=== PATIENT | female | born 1960 | race Caucasian/White ===

== ENCOUNTER 2016-05-08 04:23 | Emergency (ER) | payer MEDICARE, OTHER ==
[~2016-05-08 04:23] MED LIST: BUPR10TASR PO; CALC600T7 PO; CITA20TA4 PO; CYCL10TA PO; ESTR0.5T3 PO; LAMI25TA PO; LAMO5CHW PO; LISI-542 PO; METF1000 PO; PRIL20CA PO; SIMV40TA2 PO; TRAZ100T4 PO; VIST50CA PO; VITA500T53 PO; ZOLM2.5T PO
[2016-05-08] MEDS ORDERED: ASPIRIN 81 MG CHEW TABLET As Ordered ONE ×2 (05:19→06:05)
[2016-05-08] MEDS ORDERED: METOCLOPRAMIDE INJ 10MG/2ML VIAL (J2765) As Ordered ONE ×2 (05:19→06:04)
[2016-05-08 05:33] LABS: BASO % 0.2 % (0.0-1.0); EOS % 0.7 % (0.0-3.0); LARGE UNSTAINED CELL # 0.1 K/mm3 (0.0-0.4); LARGE UNSTAINED CELL % 0.8 % (0.0-4.0); LYMPH # 0.7 K/mm3 (1.5-4.5); MEAN CORPUSCULAR HEMOGLOBIN 30.1 pg (27.0-33.0); MEAN CORPUSCULAR HGB CONC 32.7 g/dl (32.0-36.5); MEAN CORPUSCULAR VOLUME 92.2 fl (80.0-96.0); MONO # 0.2 K/mm3 (0.0-0.8); MONO % 3.1 % (0.0-5.0); NEUTROPHILS # 5.7 K/mm3 (1.8-7.7); NEUTROPHILS % 85.2 % (36.0-66.0); PLATELET COUNT, AUTOMATED 162 k/mm3 (150-450); RED CELL DISTRIBUTION WIDTH 12.8 % (11.5-14.5); WHITE BLOOD COUNT 6.7 K/mm3 (4.0-10.0)
[2016-05-08 05:52] LABS: ALBUMIN 3.9 GM/DL (3.2-5.2); ALBUMIN/GLOBULIN RATIO 0.91 (1.00-1.93); ALKALINE PHOSPHATASE 80 U/L (45-117); ALT/SGPT 38 U/L (12-78); AMYLASE 21 U/L (25-115); ANION GAP 12 MEQ/L (8-16); AST/SGOT 47 U/L (15-37); BILIRUBIN,DIRECT 0.2 MG/DL (0.0-0.2); BILIRUBIN,TOTAL 0.7 MG/DL (0.2-1.0); BLOOD UREA NITROGEN 12 MG/DL (7-18); CALCIUM LEVEL 8.5 MG/DL (8.5-10.1); CARBON DIOXIDE LEVEL 27 MEQ/L (21-32); CHLORIDE LEVEL 98 MEQ/L (98-107); GLOMERULAR FILTRATION RATE > 60.0 (>51); GLUCOSE, FASTING 186 MG/DL (70-105); POTASSIUM SERUM 3.7 MEQ/L (3.5-5.1); SODIUM LEVEL 137 MEQ/L (136-145); TOTAL PROTEIN 8.2 GM/DL (6.4-8.2)
[2016-05-08] MEDS ORDERED: CLOPIDOGREL 75 MG TAB As Ordered ONE (06:05)
[2016-05-08] MEDS ORDERED: HEPARIN 25,000 UNITS/250 ML D5W BAG (100 UNITS/ML) As Ordered ONE (06:05)
[2016-05-08] MEDS ORDERED: METOPROLOL TART 50 MG TAB As Ordered ONE (06:05)
[2016-05-08] MEDS ORDERED: HEPARIN SOD (PORCINE) 5000 UNITS/ML VIAL As Ordered ONE (06:05)
[2016-05-08 06:17] LABS: INR 1.14
[2016-05-08] MEDS ORDERED: MORPHINE 2 MG/ML 1ML SYRINGE As Ordered ONE (07:23)
--- NOTE | 2016-05-08 07:38 | EDDOCDS ---
Physician Documentation [facility] Name: Celestina Ellison Age: 55 yrs Sex: Female : 1960 Arrival Date: 05/08/2016 Time: 04:23 Bed 11 Private MD: Disposition: 05/08/16 06:17 Transfer ordered to [facility]. Diagnosis is Subsequent non-ST elevation (NSTEMI) myocardial infarction. - Reason for transfer: Higher level of care. - Accepting physician is Dr Beard. - Condition is Stable. - Problem is new. - Symptoms have improved. Historical: - Allergies: Latex; Bees; - Home Meds: 1. liraglutide 0.6 mg/0.1 mL (18 mg/3 mL) subcutaneous pnij 1.2 mL once daily began medication yesterday 2. cyclobenzaprine 10 mg oral tab 1 tab 3 times per day 3. lisinopril 5 mg Oral tab 1 tab once daily 4. metformin 1,000 mg Oral tab 1 tab 2 times per day 5. Prozac 40 mg Oral cap 1 cap once daily 6. simvastatin 40 mg Oral tab 1 tab once daily 7. trazodone 350 mg Oral tab 1 tab nightly 8. 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 No barriers to communication noted, The patient speaks fluent Persian, Speaks appropriately for age. - Family history: Not pertinent. - : The pt / caregiver states he / she is not on anticoagulants. Home medication list is obtained from the patient. - Exposure Risk Screening:: None identified. 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 11 in. (149.86 cm); Pain 7/10; 04:43 BP 142 / 85 (auto/); cf2 04:43 Pulse 108 MON; Pulse Ox 93% ; cf2 04:50 Pulse 108 MON; Pulse Ox 95% ; cf2 05:00 Pulse 106 MON; Pulse Ox 95% ; cf2 05:13 Pulse 104 MON; Pulse Ox 93% ; cf2 05:24 Pulse 104 MON; Pulse Ox 93% ; cf2 05:45 Pulse 104 MON; Pulse Ox 92% ; cf2 06:04 Pulse 104 MON; Pulse Ox 90% ; cf2 06:19 BP 140 / 77 (auto/); cf2 06:20 Pulse 106 MON; Pulse Ox 92% ; cf2 06:34 BP 141 / 81 (auto/); cf2 06:35 Pulse 106 MON; cf2 06:49 BP 132 / 75 (auto/); cf2 06:51 Pulse 104 MON; cf2 06:53 Pulse 104 MON; Pulse Ox 95% ; cf2 07:04 BP 136 / 83 (auto/); cf2 07:05 Pulse 104 MON; Pulse Ox 94% ; cf2 07:19 BP 151 / 79 (auto/); jjr 07:20 Pulse 112 MON; Resp 20; Temp 98.4(O); Pulse Ox 94% on R/A; Pain 5/10; jjr 07:37 BP 123 / 74; Pulse 105; Resp 20; Pain 0/10; jjr 04:34 Body Mass Index 68.07 (152.86 kg, 149.86 cm) nn1 MDM: 04:40 ECG WITH READING ER PHYS+CARDIAG ordered. EDMS 05:05 IV Saline Lock ordered. cs11 05:05 NS 0.9% 500 ml IV at bolus once ordered. cs11 05:05 Metoclopramide 10 mg IV at 40 mg/hr once over 15 mins ordered. cs11 05:06 Aspirin 324 mg PO once ordered. cs11 05:07 Chest, 1 View Ordered. EDMS 05:07 CBC with Diff Ordered. EDMS 05:07 MED Profile Ordered. EDMS 05:07 Liver Profile Ordered. EDMS 05:07 Amylase Ordered. EDMS 05:07 Lipase Ordered. EDMS 05:07 Cardiac Marker Panel Ordered. EDMS 05:18 Fingerstick Blood Sugar Ordered. EDMS 05:38 CBC with Diff Reviewed. cs11 05:38 Fingerstick Blood Sugar Reviewed. cs11 05:59 MED Profile Reviewed. cs11 05:59 Liver Profile Reviewed. cs11 05:59 Amylase Reviewed. cs11 05:59 Cardiac Marker Panel Reviewed. cs11 05:59 Lipase Reviewed. cs11 06:01 heparin (Thrombolytic Protocol, 60 units/kg)) 4000 units IVP once; max 4000 units. cs11 Ensure no Lovenox in past 18hr, labs drawn ordered. 06:01 heparin (Thrombolytic Protocol, 12 units/kg/hr)) 66067 units IV at 1000 units/hr once; cs11 Max. dose 1000units/hr. No Lovenox past 18hrs/ draw labs. ordered. 06:01 Plavix - Clopidogrel 75 mg PO once ordered. cs11 06:02 Metoprolol (Tartrate) 50 mg PO once ordered. cs11 06:05 Pt & Aptt: prior to heparinization Ordered. EDMS 06:34 Financial registration complete. hs2 07:20 [facility] Payment Agreement was scanned into [employer] and attached to record. hs2 07:24 morphine 2 mg IVP once ordered. fg Administered Medications: 05:26 Drug: NS 0.9% 500 ml [sodium chloride 0.9 % intravenous solution] Route: IV; Rate: cf2 bolus; Site: left antecubital; 05:26 Drug: Metoclopramide 10 mg [metoclopramide 5 mg/mL injection solution] Route: IV; Rate: cf2 40 mg/hr; Infused Over: 15 mins; Site: left antecubital; 05:26 Drug: Aspirin 324 mg [aspirin 81 mg chewable tablet (4 tabs)] Route: PO; cf2 06:14 Drug: Plavix - Clopidogrel 75 mg [clopidogrel 75 mg tablet (1 tabs)] Route: PO; jp6 06:14 Drug: Metoprolol 50 mg [metoprolol tartrate 50 mg tablet (1 tabs)] Route: PO; jp6 06:15 Drug: heparin (Thrombolytic Protocol, 12 units/kg/hr)) 70194 units [heparin (porcine) jp6 25,000 unit/250 mL (100 unit/mL) in dextrose 5 % IV] {Co-Signature: cf2 (Karen Amaral RN).} Route: IV; Rate: 1000 units/hr; Site: left antecubital; 06:16 Drug: heparin (Thrombolytic Protocol, 60 units/kg)) 4000 units [heparin (porcine) 5,000 jp6 unit/mL injection solution (0.8 mL)] {Co-Signature: cf2 (Karen Amaral RN).} Route: IVP; Site: left antecubital; 07:27 Drug: morphine 2 mg [morphine 2 mg/mL intravenous cartridge (1 mL)] Route: IVP; Site: jjr left wrist; Signatures: Dispatcher [employer] EDVenice Brownlee RN RN jjr Jeb Ann DO DO cs11 Deejay BlanchardRN RN nn1 Benita Eric MD MD Nanette Harvey, Reg Reg hs2 Karen Amaral RN RN cf2 Venice Yang RN jp6 Karen Amaral RN cf2 The chart was reviewed and I authenticate all verbal orders and agree with the evaluation and treatment provided.Attachments: 07:20 [facility] Payment Agreement hs2 MTDD
--- NOTE | 2016-05-08 07:38 | EDDOCDS ---
Nurse's Notes [facility] Name: Celestina Ellison Age: 55 yrs Sex: Female : 1960 Arrival Date: 05/08/2016 Time: 04:23 Bed 11 Private MD: Diagnosis: Subsequent non-ST elevation (NSTEMI) myocardial infarction Presentation: 05/08 04:28 Presenting complaint: Patient states: vomiting since 1900 yesterday. Diarrhea began at nn1 approximately an hour ago. Patient reports chest pains, substernal, began before vomiting. Describes chest pain as sharp, radiates across chest. Suicide/Homicide risk assessment- the patient denies having any suicidal and/or homicidal ideations and does not present with any other emotional, behavioral or mental health complaints. Status: Patient is not a account services specialist or dependent. Transition of care: patient was not received from another setting of care. 04:28 Acuity: STACIA Level 3 nn1 04:28 Method Of Arrival: Walkin/Carried/Asstd nn1 07:30 Adult Sepsis Screening: The patient does not have new or worsening altered mentation. jjr Patient's respiratory rate is less than 22. Systolic blood pressure is greater than 100. Patient has a qSOFA score of 0- Negative Sepsis Screen. Triage Assessment: 04:35 General: Appears uncomfortable. Pain: Location: chest Pain currently is 7 out of 10 on nn1 a pain scale. Quality of pain is described as sharp, Pain began 0 yesterday Is continuous. HIV screening NA for this visit Offered previously. The patient is triaged at the bedside. See Assessment in Nurses Notes section of ED record. Neurological: Level of Consciousness is awake, alert, obeys commands. Respiratory: Airway is patent Respiratory effort is even, unlabored, Respiratory pattern is regular, symmetrical. GI: Reports diarrhea, nausea, vomiting. Derm: Skin is pink, warm & dry. 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 liraglutide 0.6 mg/0.1 mL (18 mg/3 mL) subcutaneous pnij 1.2 mL once daily began medication yesterday 2. cyclobenzaprine 10 mg oral tab 1 tab 3 times per day 3. lisinopril 5 mg Oral tab 1 tab once daily 4. metformin 1,000 mg Oral tab 1 tab 2 times per day 5. Prozac 40 mg Oral cap 1 cap once daily 6. simvastatin 40 mg Oral tab 1 tab once daily 7. trazodone 350 mg Oral tab 1 tab nightly 8. 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 No barriers to communication noted, The patient speaks fluent Ukrainian, Speaks appropriately for age. - Family history: Not pertinent. - : The pt / caregiver states he / she is not on anticoagulants. Home medication list is obtained from the patient. - Exposure Risk Screening:: None identified. Screenin:59 Screening information is obtained from the patient. Fall risk: No risks identified. kas2 Assistance ADL's: requires no assistance with activities of daily living. Abuse/DV Screen: The patient / caregiver reports he/she is: not in a situation that causes fear, pain or injury. Nutritional screening: No deficits noted. Advance Directives: Currently, there is no health care proxy. There is no active DNR order. There is no living will. There is no Power of Instructor Decorating. home support is adequate. Assessment: 04:58 General: Appears in no apparent distress, uncomfortable, well nourished, well groomed, kas2 Behavior is appropriate for age, cooperative. Pain: Location: chest Pain currently is 6 out of 10 on a pain scale. Pain does not radiate. Neurological: Level of Consciousness is awake, alert, Oriented to person, place, time. Cardiovascular: Capillary refill < 3 seconds Heart tones present Rhythm is sinus tachycardia No ectopy. Respiratory: Airway is patent Respiratory effort is even, unlabored, Respiratory pattern is regular, symmetrical, Breath sounds are clear bilaterally. GI: Abdomen is obese, Bowel sounds present X 4 quads. Abd is soft and non tender X 4 quads. Derm: Skin is intact, is healthy with good turgor, Skin is dry, Skin is pink, warm & dry. normal, Skin temperature is warm. 07:15 General: Report to WANG Abdullahi, at [facility]. cf2 07:15 Reassessment: Patient states symptoms have improved. General: MD over to speak with cf2 patient. Trop elevated at 0.38 and explains to patient that she needs to be transferred to another facility for higher level of care. Patient agrees to transfer . 07:28 General: Appears in no apparent distress, obese, Behavior is appropriate for age, jjr reported 2 /10 substernal chest pressure after getting up to BSC pt reported slightly more SOB than baseline and chest pressure increased to 5/10, morphine administered per order. Neurological: No deficits noted. Cardiovascular: Rhythm is sinus tachycardia. Respiratory: Airway is patent Respiratory effort is even, unlabored, Respiratory pattern is regular. Derm: Skin is pink, warm & dry. Vital Signs: 04:34 BP 150 / 87; Pulse 110; Resp 18; Temp 96.7(T); Pulse Ox 95% on R/A; Weight 152.86 kg; nn1 Height 4 ft. 11 in. (149.86 cm); Pain 7/10; 04:43 BP 142 / 85 (auto/); cf2 04:43 Pulse 108 MON; Pulse Ox 93% ; cf2 04:50 Pulse 108 MON; Pulse Ox 95% ; cf2 05:00 Pulse 106 MON; Pulse Ox 95% ; cf2 05:13 Pulse 104 MON; Pulse Ox 93% ; cf2 05:24 Pulse 104 MON; Pulse Ox 93% ; cf2 05:45 Pulse 104 MON; Pulse Ox 92% ; cf2 06:04 Pulse 104 MON; Pulse Ox 90% ; cf2 06:19 BP 140 / 77 (auto/); cf2 06:20 Pulse 106 MON; Pulse Ox 92% ; cf2 06:34 BP 141 / 81 (auto/); cf2 06:35 Pulse 106 MON; cf2 06:49 BP 132 / 75 (auto/); cf2 06:51 Pulse 104 MON; cf2 06:53 Pulse 104 MON; Pulse Ox 95% ; cf2 07:04 BP 136 / 83 (auto/); cf2 07:05 Pulse 104 MON; Pulse Ox 94% ; cf2 07:19 BP 151 / 79 (auto/); jjr 07:20 Pulse 112 MON; Resp 20; Temp 98.4(O); Pulse Ox 94% on R/A; Pain 5/10; jjr 07:37 BP 123 / 74; Pulse 105; Resp 20; Pain 0/10; jjr 04:34 Body Mass Index 68.07 (152.86 kg, 149.86 cm) nn1 Vitals: 04:34 Log In Time: May 08, 2016 at 04:25. nn1 ED Course: 04:24 Patient visited by Nanette Harvey Reg. hs2 04:24 Patient moved to Waiting hs2 04:29 Triage Initiated nn1 04:36 Patient moved to 11 nn1 04:41 Jeb Ann DO is Attending Physician. cs11 04:41 Patient visited by Jeb Ann DO. cs11 04:49 Patient visited by Joan Cabrera Cooking Instructor. jlm 04:49 EKG done. (by ED staff). Reviewed by Jeb Ann DO. jl 04:57 Inserted saline lock: 20 gauge in left antecubital area The patient tolerated the kas2 procedure well. 05:00 Karen Amaral,WANG is Primary Nurse. cf2 05:00 Patient visited by Karen Amaral,WANG. cf2 05:18 Lipase Sent. cf2 05:18 Amylase Sent. cf2 05:18 CBC with Diff Sent. cf2 05:18 MED Profile Sent. cf2 05:18 Liver Profile Sent. cf2 05:18 Cardiac Marker Panel Sent. cf2 06:00 Patient visited by Karen Amaral,WANG. cf2 06:49 Patient visited by Karen Amaral,WANG. cf2 07:09 Patient visited by Karen Amaral,WANG. cf2 07:18 The patient / caregiver is instructed regarding the plan of care and ED course. Patient cf2 has correct armband on for positive identification. Placed in gown. Bed in low position. Call light in reach. Side rails up X 1. Side rails up X2. Adult w/ patient. monitoring specialist on. Pulse ox on. NIBP on. Property :Personal belongings accompany Pt. Door closed. Noise minimized. Visitors limited. Lights dimmed. Moved to private room. Verbal reassurance given. Warm blanket given. Pillow given. Head of bed elevated. Diet: Patient is NPO. 07:18 No procedures done that require assistance. cf2 07:18 O2 via nasal cannula \T\ 2L/min. cf2 07:20 [facility] Payment Agreement was scanned into [employer] and attached to record. hs2 Administered Medications: 05:26 Drug: NS 0.9% 500 ml [sodium chloride 0.9 % intravenous solution] Route: IV; Rate: cf2 bolus; Site: left antecubital; 05:26 Drug: Metoclopramide 10 mg [metoclopramide 5 mg/mL injection solution] Route: IV; Rate: cf2 40 mg/hr; Infused Over: 15 mins; Site: left antecubital; 05:26 Drug: Aspirin 324 mg [aspirin 81 mg chewable tablet (4 tabs)] Route: PO; cf2 06:14 Drug: Plavix - Clopidogrel 75 mg [clopidogrel 75 mg tablet (1 tabs)] Route: PO; jp6 06:14 Drug: Metoprolol 50 mg [metoprolol tartrate 50 mg tablet (1 tabs)] Route: PO; jp6 06:15 Drug: heparin (Thrombolytic Protocol, 12 units/kg/hr)) 27526 units [heparin (porcine) jp6 25,000 unit/250 mL (100 unit/mL) in dextrose 5 % IV] {Co-Signature: cf2 (Karen Amaral RN).} Route: IV; Rate: 1000 units/hr; Site: left antecubital; 06:16 Drug: heparin (Thrombolytic Protocol, 60 units/kg)) 4000 units [heparin (porcine) 5,000 jp6 unit/mL injection solution (0.8 mL)] {Co-Signature: cf2 (Karen Amaral RN).} Route: IVP; Site: left antecubital; 07:27 Drug: morphine 2 mg [morphine 2 mg/mL intravenous cartridge (1 mL)] Route: IVP; Site: jjr left wrist; Order Results: Lab Order: CBC with Diff; SPEC'M 05/08/16 05:16 Test: WHITE BLOOD COUNT; Value: 6.7; Range: 4.0-10.0; Units: K/mm3; Status: F Test: RED BLOOD COUNT; Value: 5.12; Range: 4.00-5.40; Units: M/mm3; Status: F Test: HEMOGLOBIN; Value: 15.4; Range: 12.0-16.0; Units: g/dl; Status: F Test: HEMATOCRIT; Value: 47.2; Range: 36.0-47.0; Abnormal: Above high normal; Units: %; Status: F Test: MEAN CORPUSCULAR VOLUME; Value: 92.2; Range: 80.0-96.0; Units: fl; Status: F Test: MEAN CORPUSCULAR HEMOGLOBIN; Value: 30.1; Range: 27.0-33.0; Units: pg; Status: F Test: MEAN CORPUSCULAR HGB CONC; Value: 32.7; Range: 32.0-36.5; Units: g/dl; Status: F Test: RED CELL DISTRIBUTION WIDTH; Value: 12.8; Range: 11.5-14.5; Units: %; Status: F Test: PLATELET COUNT, AUTOMATED; Value: 162; Range: 150-450; Units: k/mm3; Status: F Test: NEUTROPHILS %; Value: 85.2; Range: 36.0-66.0; Abnormal: Above high normal; Units: %; Status: F Test: LYMPH %; Value: 10.0; Range: 24.0-44.0; Abnormal: Below low normal; Units: %; Status: F Test: MONO %; Value: 3.1; Range: 0.0-5.0; Units: %; Status: F Test: EOS %; Value: 0.7; Range: 0.0-3.0; Units: %; Status: F Test: BASO %; Value: 0.2; Range: 0.0-1.0; Units: %; Status: F Test: LARGE UNSTAINED CELL %; Value: 0.8; Range: 0.0-4.0; Units: %; Status: F Test: NEUTROPHILS #; Value: 5.7; Range: 1.8-7.7; Units: K/mm3; Status: F Test: LYMPH #; Value: 0.7; Range: 1.5-4.5; Abnormal: Below low normal; Units: K/mm3; Status: F Test: MONO #; Value: 0.2; Range: 0.0-0.8; Units: K/mm3; Status: F Test: EOS #; Value: 0.0; Range: 0.0-0.50; Units: K/mm3; Status: F Test: BASO #; Value: 0.0; Range: 0.0-0.2; Units: K/mm3; Status: F Test: LARGE UNSTAINED CELL #; Value: 0.1; Range: 0.0-0.4; Units: K/mm3; Status: F Lab Order: MED Profile; SPEC'M 05/08/16 05:16 Test: GLUCOSE, FASTING; Value: 186; Range: 70-105; Abnormal: Above high normal; Units: MG/DL; Status: F Test: BLOOD UREA NITROGEN; Value: 12; Range: 7-18; Units: MG/DL; Status: F Test: CREATININE FOR GFR; Value: 0.70; Range: 0.55-1.02; Units: MG/DL; Status: F Test: GLOMERULAR FILTRATION RATE; Value: > 60.0; Range: >51; Status: F Test: SODIUM LEVEL; Value: 137; Range: 136-145; Units: MEQ/L; Status: F Test: POTASSIUM SERUM; Value: 3.7; Range: 3.5-5.1; Units: MEQ/L; Status: F Test: CHLORIDE LEVEL; Value: 98; Range: 98-107; Units: MEQ/L; Status: F Test: CARBON DIOXIDE LEVEL; Value: 27; Range: 21-32; Units: MEQ/L; Status: F Test: ANION GAP; Value: 12; Range: 8-16; Units: MEQ/L; Status: F Test: CALCIUM LEVEL; Value: 8.5; Range: 8.5-10.1; Units: MG/DL; Status: F Test Note: ; Units are mL/min/1.73 m2 Chronic Kidney Disease Staging per NKF: Stage I & II GFR >=60 Normal to Mildly Decreased Stage III GFR 30-59 Moderately Decreased Stage IV GFR 15-29 Severely Decreased Stage V GFR <15 Very Little GFR Left ESRD GFR <15 on DUMP ATTENDANT Lab Order: Liver Profile; SPEC'M 05/08/16 05:16 Test: AST/SGOT; Value: 47; Range: 15-37; Abnormal: Above high normal; Units: U/L; Status: F Test: ALT/SGPT; Value: 38; Range: 12-78; Units: U/L; Status: F Test: ALKALINE PHOSPHATASE; Value: 80; Range: 45-117; Units: U/L; Status: F Test: BILIRUBIN,TOTAL; Value: 0.7; Range: 0.2-1.0; Units: MG/DL; Status: F Test: BILIRUBIN,DIRECT; Value: 0.2; Range: 0.0-0.2; Units: MG/DL; Status: F Test: TOTAL PROTEIN; Value: 8.2; Range: 6.4-8.2; Units: GM/DL; Status: F Test: ALBUMIN; Value: 3.9; Range: 3.2-5.2; Units: GM/DL; Status: F Test: ALBUMIN/GLOBULIN RATIO; Value: 0.91; Range: 1.00-1.93; Abnormal: Below low normal; Status: F Lab Order: Amylase; 05/08/16 05:16 Test: AMYLASE; Value: 21; Range: 25-115; Abnormal: Below low normal; Units: U/L; Status: F Lab Order: Lipase; 05/08/16 05:16 Test: LIPASE; Value: 134; Range: 73-393; Units: U/L; Status: F Lab Order: Cardiac Marker Panel; 05/08/16 05:16 Test: CPK CREATINE PHOSPHOKINASE; Value: 91; Range: 26-192; Units: U/L; Status: F Test: CK-MB VALUE MASS; Value: 1.5; Range: 0.0-3.6; Units: NG/ML; Status: F Test: MB/CK RELATIVE INDEX; Value: 1.64; Range: < OR =4; Status: F Test: TROPONIN I; Value: 0.38; Range: < 0.10; Abnormal: Above high normal; Units: NG/ML; Status: F Test Note: ; DIAGNOSIS CRITERIA MMB ng/ml Relative Index (RI) NON-AMI < or = 5 N/A WAT[place] ZONE > 5 < or = 4 AMI > 5 > 4 Lab Order: Fingerstick Blood Sugar; 05/08/16 05:09 Test: BEDSIDE GLUCOSE; Value: 185; Range: 70-105; Abnormal: Above high normal; Units: MG/DL; Status: F Lab Order: Pt & Aptt: prior to heparinization; 05/08/16 05:16 Test: PROTHROMBIN TIME; Value: 14.7; Range: 12.3-14.5; Abnormal: Above high normal; Units: SECONDS; Status: F Test: INR; Value: 1.14; Status: F Test: PARTIAL THROMBOPLASTIN TIME; Value: 30.8; Range: 26.6-37.1; Units: SECONDS; Status: F Test Note: ; THERAPUTIC HUMAN INR VALUES INDICATIONS NORMAL RANGES PROPHYLAXIS/TREATMENT OF: VENOUS THROMBOSIS 2.0-3.0 PULMONARY EMBOLISM 2.0-3.0 PREVENTION OF SYSTEMIC EMBOLISM FROM: TISSUE HEART VALVES 2.0-3.0 ACUTE MYOCARDIAL INFARCTION 2.0-3.0 VALVULAR HEART DISEASE 2.0-3.0 ATRIAL FIBRILLATION 2.0-3.0 MECHANICAL VALVES(HIGH RISK) 2.5-3.5 RECURRENT MYOCARDIAL INFARCTION 2.5-3.5 Outcome: 06:17 ER care complete, transfer ordered by Provider. cs11 07:29 Discharge Assessment: patient administered narcotics - yes. Patient was [facility] or transferred to another facility. The following High Risk Discharge criteria are identified: None. Transferred to [facility]. by EMS ground [facility] ambulance report to accompanying personnel Rachel and Jonn, Transfer form completed. x-rays sent w/ patient. Condition: stable. No special radiology studies were completed. 07:38 Patient left the ED. [facility] Signatures: Venice Zavala, RN Jeb Jorgensen, DO cs11 Joan Cabrera, Cooking Instructor Unit Deejay Cole RN RN nn1 Nanette Harvey, Reg Reg hs2 Michelle Kaur RN RN kas2 Venice Yang RN RN jp6 Karen Amaral RN RN cf2 Karen Amaral RN cf2 MTDD
--- NOTE | 2016-05-08 09:16 | REP ---
Clinical: Chest pain . Comparison: 11/24/2011 . Findings: The mediastinum and cardiac silhouette are stable and within normal limits for portable technique. The lung landa are clear without acute consolidation, effusion, or pneumothorax. Skeletal structures are intact. Impression: Normal portable chest x-ray Signed by Polo Abad MD 05/08/2016 09:07 A
--- NOTE | 2016-05-08 12:07 | ECGEPIP ---
Stationary ECG Study 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
--- NOTE | 2016-05-10 08:39 | EDDOCDS ---
Physician Documentation [facility] Name: Celestina Ellison Age: 55 yrs Sex: Female : 1960 Arrival Date: 05/08/2016 Time: 04:23 Bed 11 Private MD: Disposition: 05/08/16 06:17 Transfer ordered to [facility]. Diagnosis is Subsequent non-ST elevation (NSTEMI) myocardial infarction. - Reason for transfer: Higher level of care. - Accepting physician is Dr Beard. - Condition is Stable. - Problem is new. - Symptoms have improved. Historical: - Allergies: Latex; Bees; - Home Meds: 1. liraglutide 0.6 mg/0.1 mL (18 mg/3 mL) subcutaneous pnij 1.2 mL once daily began medication yesterday 2. cyclobenzaprine 10 mg oral tab 1 tab 3 times per day 3. lisinopril 5 mg Oral tab 1 tab once daily 4. metformin 1,000 mg Oral tab 1 tab 2 times per day 5. Prozac 40 mg Oral cap 1 cap once daily 6. simvastatin 40 mg Oral tab 1 tab once daily 7. trazodone 350 mg Oral tab 1 tab nightly 8. 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 No barriers to communication noted, The patient speaks fluent Bengali, Speaks appropriately for age. - Family history: Not pertinent. - : The pt / caregiver states he / she is not on anticoagulants. Home medication list is obtained from the patient. - Exposure Risk Screening:: None identified. 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 11 in. (149.86 cm); Pain 7/10; 04:43 BP 142 / 85 (auto/); cf2 04:43 Pulse 108 MON; Pulse Ox 93% ; cf2 04:50 Pulse 108 MON; Pulse Ox 95% ; cf2 05:00 Pulse 106 MON; Pulse Ox 95% ; cf2 05:13 Pulse 104 MON; Pulse Ox 93% ; cf2 05:24 Pulse 104 MON; Pulse Ox 93% ; cf2 05:45 Pulse 104 MON; Pulse Ox 92% ; cf2 06:04 Pulse 104 MON; Pulse Ox 90% ; cf2 06:19 BP 140 / 77 (auto/); cf2 06:20 Pulse 106 MON; Pulse Ox 92% ; cf2 06:34 BP 141 / 81 (auto/); cf2 06:35 Pulse 106 MON; cf2 06:49 BP 132 / 75 (auto/); cf2 06:51 Pulse 104 MON; cf2 06:53 Pulse 104 MON; Pulse Ox 95% ; cf2 07:04 BP 136 / 83 (auto/); cf2 07:05 Pulse 104 MON; Pulse Ox 94% ; cf2 07:19 BP 151 / 79 (auto/); jjr 07:20 Pulse 112 MON; Resp 20; Temp 98.4(O); Pulse Ox 94% on R/A; Pain 5/10; jjr 07:37 BP 123 / 74; Pulse 105; Resp 20; Pain 0/10; jjr 04:34 Body Mass Index 68.07 (152.86 kg, 149.86 cm) nn1 MDM: 04:40 ECG WITH READING ER PHYS+CARDIAG ordered. EDMS 05:05 IV Saline Lock ordered. cs11 05:05 NS 0.9% 500 ml IV at bolus once ordered. cs11 05:05 Metoclopramide 10 mg IV at 40 mg/hr once over 15 mins ordered. cs11 05:06 Aspirin 324 mg PO once ordered. cs11 05:07 Chest, 1 View Ordered. EDMS 05:07 CBC with Diff Ordered. EDMS 05:07 MED Profile Ordered. EDMS 05:07 Liver Profile Ordered. EDMS 05:07 Amylase Ordered. EDMS 05:07 Lipase Ordered. EDMS 05:07 Cardiac Marker Panel Ordered. EDMS 05:18 Fingerstick Blood Sugar Ordered. EDMS 05:38 CBC with Diff Reviewed. cs11 05:38 Fingerstick Blood Sugar Reviewed. cs11 05:59 MED Profile Reviewed. cs11 05:59 Liver Profile Reviewed. cs11 05:59 Amylase Reviewed. cs11 05:59 Cardiac Marker Panel Reviewed. cs11 05:59 Lipase Reviewed. cs11 06:01 heparin (Thrombolytic Protocol, 60 units/kg)) 4000 units IVP once; max 4000 units. cs11 Ensure no Lovenox in past 18hr, labs drawn ordered. 06:01 heparin (Thrombolytic Protocol, 12 units/kg/hr)) 86222 units IV at 1000 units/hr once; cs11 Max. dose 1000units/hr. No Lovenox past 18hrs/ draw labs. ordered. 06:01 Plavix - Clopidogrel 75 mg PO once ordered. cs11 06:02 Metoprolol (Tartrate) 50 mg PO once ordered. cs11 06:05 Pt & Aptt: prior to heparinization Ordered. EDMS 06:34 Financial registration complete. hs2 07:20 [facility] Payment Agreement was scanned into [employer] and attached to record. hs2 07:24 morphine 2 mg IVP once ordered. fg 05/09 12:09 T-Sheet-- Draft Copy was scanned into [employer] and attached to record. gb 12:09 ECG/EKG was scanned into [employer] and attached to record. gb Administered Medications: 05/08 05:26 Drug: NS 0.9% 500 ml [sodium chloride 0.9 % intravenous solution] Route: IV; Rate: cf2 bolus; Site: left antecubital; 05:26 Drug: Metoclopramide 10 mg [metoclopramide 5 mg/mL injection solution] Route: IV; Rate: cf2 40 mg/hr; Infused Over: 15 mins; Site: left antecubital; 05:26 Drug: Aspirin 324 mg [aspirin 81 mg chewable tablet (4 tabs)] Route: PO; cf2 06:14 Drug: Plavix - Clopidogrel 75 mg [clopidogrel 75 mg tablet (1 tabs)] Route: PO; jp6 06:14 Drug: Metoprolol 50 mg [metoprolol tartrate 50 mg tablet (1 tabs)] Route: PO; jp6 06:15 Drug: heparin (Thrombolytic Protocol, 12 units/kg/hr)) 65550 units [heparin (porcine) jp6 25,000 unit/250 mL (100 unit/mL) in dextrose 5 % IV] {Co-Signature: cf2 (Karen Amaral RN).} Route: IV; Rate: 1000 units/hr; Site: left antecubital; 06:16 Drug: heparin (Thrombolytic Protocol, 60 units/kg)) 4000 units [heparin (porcine) 5,000 jp6 unit/mL injection solution (0.8 mL)] {Co-Signature: cf2 (Karen Amaral RN).} Route: IVP; Site: left antecubital; 07:27 Drug: morphine 2 mg [morphine 2 mg/mL intravenous cartridge (1 mL)] Route: IVP; Site: jjr left wrist; Signatures: Dispatcher [employer] EDMS Kaitlyn Morrow, Reg Reg gb Venice Zavala RN RN jjJeb Lacey DO DO cs11 Deejay BlanchardRN RN nn1 Benita Eric MD MD Nanette Harvey, Reg Reg hs2 Karen Amaral RN RN cf2 Venice Yang RN jp6 Karen Amaral RN cf2 The chart was reviewed and I authenticate all verbal orders and agree with the evaluation and treatment provided.Attachments: 07:20 [facility] Payment Agreement hs2 05/09 12:09 T-Sheet-- Draft Copy gb 12:09 ECG/EKG Chart Complete MTDD
--- NOTE | 2016-05-10 08:39 | EDDOCDS ---
Physician Documentation [facility] Name: Celestina Ellison Age: 55 yrs Sex: Female : 1960 Arrival Date: 05/08/2016 Time: 04:23 Bed 11 Private MD: Disposition: 05/08/16 06:17 Transfer ordered to [facility]. Diagnosis is Subsequent non-ST elevation (NSTEMI) myocardial infarction. - Reason for transfer: Higher level of care. - Accepting physician is Dr Beard. - Condition is Stable. - Problem is new. - Symptoms have improved. Historical: - Allergies: Latex; Bees; - Home Meds: 1. liraglutide 0.6 mg/0.1 mL (18 mg/3 mL) subcutaneous pnij 1.2 mL once daily began medication yesterday 2. cyclobenzaprine 10 mg oral tab 1 tab 3 times per day 3. lisinopril 5 mg Oral tab 1 tab once daily 4. metformin 1,000 mg Oral tab 1 tab 2 times per day 5. Prozac 40 mg Oral cap 1 cap once daily 6. simvastatin 40 mg Oral tab 1 tab once daily 7. trazodone 350 mg Oral tab 1 tab nightly 8. 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 No barriers to communication noted, The patient speaks fluent Korean, Speaks appropriately for age. - Family history: Not pertinent. - : The pt / caregiver states he / she is not on anticoagulants. Home medication list is obtained from the patient. - Exposure Risk Screening:: None identified. 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 11 in. (149.86 cm); Pain 7/10; 04:43 BP 142 / 85 (auto/); cf2 04:43 Pulse 108 MON; Pulse Ox 93% ; cf2 04:50 Pulse 108 MON; Pulse Ox 95% ; cf2 05:00 Pulse 106 MON; Pulse Ox 95% ; cf2 05:13 Pulse 104 MON; Pulse Ox 93% ; cf2 05:24 Pulse 104 MON; Pulse Ox 93% ; cf2 05:45 Pulse 104 MON; Pulse Ox 92% ; cf2 06:04 Pulse 104 MON; Pulse Ox 90% ; cf2 06:19 BP 140 / 77 (auto/); cf2 06:20 Pulse 106 MON; Pulse Ox 92% ; cf2 06:34 BP 141 / 81 (auto/); cf2 06:35 Pulse 106 MON; cf2 06:49 BP 132 / 75 (auto/); cf2 06:51 Pulse 104 MON; cf2 06:53 Pulse 104 MON; Pulse Ox 95% ; cf2 07:04 BP 136 / 83 (auto/); cf2 07:05 Pulse 104 MON; Pulse Ox 94% ; cf2 07:19 BP 151 / 79 (auto/); jjr 07:20 Pulse 112 MON; Resp 20; Temp 98.4(O); Pulse Ox 94% on R/A; Pain 5/10; jjr 07:37 BP 123 / 74; Pulse 105; Resp 20; Pain 0/10; jjr 04:34 Body Mass Index 68.07 (152.86 kg, 149.86 cm) nn1 MDM: 04:40 ECG WITH READING ER PHYS+CARDIAG ordered. EDMS 05:05 IV Saline Lock ordered. cs11 05:05 NS 0.9% 500 ml IV at bolus once ordered. cs11 05:05 Metoclopramide 10 mg IV at 40 mg/hr once over 15 mins ordered. cs11 05:06 Aspirin 324 mg PO once ordered. cs11 05:07 Chest, 1 View Ordered. EDMS 05:07 CBC with Diff Ordered. EDMS 05:07 MED Profile Ordered. EDMS 05:07 Liver Profile Ordered. EDMS 05:07 Amylase Ordered. EDMS 05:07 Lipase Ordered. EDMS 05:07 Cardiac Marker Panel Ordered. EDMS 05:18 Fingerstick Blood Sugar Ordered. EDMS 05:38 CBC with Diff Reviewed. cs11 05:38 Fingerstick Blood Sugar Reviewed. cs11 05:59 MED Profile Reviewed. cs11 05:59 Liver Profile Reviewed. cs11 05:59 Amylase Reviewed. cs11 05:59 Cardiac Marker Panel Reviewed. cs11 05:59 Lipase Reviewed. cs11 06:01 heparin (Thrombolytic Protocol, 60 units/kg)) 4000 units IVP once; max 4000 units. cs11 Ensure no Lovenox in past 18hr, labs drawn ordered. 06:01 heparin (Thrombolytic Protocol, 12 units/kg/hr)) 48840 units IV at 1000 units/hr once; cs11 Max. dose 1000units/hr. No Lovenox past 18hrs/ draw labs. ordered. 06:01 Plavix - Clopidogrel 75 mg PO once ordered. cs11 06:02 Metoprolol (Tartrate) 50 mg PO once ordered. cs11 06:05 Pt & Aptt: prior to heparinization Ordered. EDMS 06:34 Financial registration complete. hs2 07:20 [facility] Payment Agreement was scanned into [employer] and attached to record. hs2 07:24 morphine 2 mg IVP once ordered. fg 05/09 12:09 T-Sheet-- Draft Copy was scanned into [employer] and attached to record. gb 12:09 ECG/EKG was scanned into [employer] and attached to record. gb Administered Medications: 05/08 05:26 Drug: NS 0.9% 500 ml [sodium chloride 0.9 % intravenous solution] Route: IV; Rate: cf2 bolus; Site: left antecubital; 05:26 Drug: Metoclopramide 10 mg [metoclopramide 5 mg/mL injection solution] Route: IV; Rate: cf2 40 mg/hr; Infused Over: 15 mins; Site: left antecubital; 05:26 Drug: Aspirin 324 mg [aspirin 81 mg chewable tablet (4 tabs)] Route: PO; cf2 06:14 Drug: Plavix - Clopidogrel 75 mg [clopidogrel 75 mg tablet (1 tabs)] Route: PO; jp6 06:14 Drug: Metoprolol 50 mg [metoprolol tartrate 50 mg tablet (1 tabs)] Route: PO; jp6 06:15 Drug: heparin (Thrombolytic Protocol, 12 units/kg/hr)) 48438 units [heparin (porcine) jp6 25,000 unit/250 mL (100 unit/mL) in dextrose 5 % IV] {Co-Signature: cf2 (Karen Amaral RN).} Route: IV; Rate: 1000 units/hr; Site: left antecubital; 06:16 Drug: heparin (Thrombolytic Protocol, 60 units/kg)) 4000 units [heparin (porcine) 5,000 jp6 unit/mL injection solution (0.8 mL)] {Co-Signature: cf2 (Karen Amaral RN).} Route: IVP; Site: left antecubital; 07:27 Drug: morphine 2 mg [morphine 2 mg/mL intravenous cartridge (1 mL)] Route: IVP; Site: jjr left wrist; Signatures: Dispatcher [employer] EDMS Kaitlyn Morrow, Reg Reg gb Venice Zavala RN RN jjJeb Lacey DO DO cs11 Deejay BlanchardRN RN nn1 Benita Eric MD MD Nanette Harvey, Reg Reg hs2 Karen Amaral RN RN cf2 Venice Yang RN jp6 Karen Amaral RN cf2 The chart was reviewed and I authenticate all verbal orders and agree with the evaluation and treatment provided.Attachments: 07:20 [facility] Payment Agreement hs2 05/09 12:09 T-Sheet-- Draft Copy gb 12:09 ECG/EKG Chart Complete MTDD
--- NOTE | 2016-05-10 08:39 | EDDOCDS ---
Nurse's Notes [facility] Name: Celestina Ellison Age: 55 yrs Sex: Female : 1960 Arrival Date: 05/08/2016 Time: 04:23 Bed 11 Private MD: Diagnosis: Subsequent non-ST elevation (NSTEMI) myocardial infarction Presentation: 05/08 04:28 Presenting complaint: Patient states: vomiting since 1900 yesterday. Diarrhea began at nn1 approximately an hour ago. Patient reports chest pains, substernal, began before vomiting. Describes chest pain as sharp, radiates across chest. Suicide/Homicide risk assessment- the patient denies having any suicidal and/or homicidal ideations and does not present with any other emotional, behavioral or mental health complaints. Status: Patient is not a parking meter servicer or dependent. Transition of care: patient was not received from another setting of care. 04:28 Acuity: STACIA Level 3 nn1 04:28 Method Of Arrival: Walkin/Carried/Asstd nn1 07:30 Adult Sepsis Screening: The patient does not have new or worsening altered mentation. jjr Patient's respiratory rate is less than 22. Systolic blood pressure is greater than 100. Patient has a qSOFA score of 0- Negative Sepsis Screen. Triage Assessment: 04:35 General: Appears uncomfortable. Pain: Location: chest Pain currently is 7 out of 10 on nn1 a pain scale. Quality of pain is described as sharp, Pain began 0 yesterday Is continuous. HIV screening NA for this visit Offered previously. The patient is triaged at the bedside. See Assessment in Nurses Notes section of ED record. Neurological: Level of Consciousness is awake, alert, obeys commands. Respiratory: Airway is patent Respiratory effort is even, unlabored, Respiratory pattern is regular, symmetrical. GI: Reports diarrhea, nausea, vomiting. Derm: Skin is pink, warm & dry. MACHINE TENDER: 04:34 LMP N/A - Hysterectomy nn1 Historical: - Allergies: Latex; Bees; - Home Meds: 1. liraglutide 0.6 mg/0.1 mL (18 mg/3 mL) subcutaneous pnij 1.2 mL once daily began medication yesterday 2. cyclobenzaprine 10 mg oral tab 1 tab 3 times per day 3. lisinopril 5 mg Oral tab 1 tab once daily 4. metformin 1,000 mg Oral tab 1 tab 2 times per day 5. Prozac 40 mg Oral cap 1 cap once daily 6. simvastatin 40 mg Oral tab 1 tab once daily 7. trazodone 350 mg Oral tab 1 tab nightly 8. 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 No barriers to communication noted, The patient speaks fluent Icelandic, Speaks appropriately for age. - Family history: Not pertinent. - : The pt / caregiver states he / she is not on anticoagulants. Home medication list is obtained from the patient. - Exposure Risk Screening:: None identified. Screenin:59 Screening information is obtained from the patient. Fall risk: No risks identified. kas2 Assistance ADL's: requires no assistance with activities of daily living. Abuse/DV Screen: The patient / caregiver reports he/she is: not in a situation that causes fear, pain or injury. Nutritional screening: No deficits noted. Advance Directives: Currently, there is no health care proxy. There is no active DNR order. There is no living will. There is no Power of Sexual Assault Nurse. home support is adequate. Assessment: 04:58 General: Appears in no apparent distress, uncomfortable, well nourished, well groomed, kas2 Behavior is appropriate for age, cooperative. Pain: Location: chest Pain currently is 6 out of 10 on a pain scale. Pain does not radiate. Neurological: Level of Consciousness is awake, alert, Oriented to person, place, time. Cardiovascular: Capillary refill < 3 seconds Heart tones present Rhythm is sinus tachycardia No ectopy. Respiratory: Airway is patent Respiratory effort is even, unlabored, Respiratory pattern is regular, symmetrical, Breath sounds are clear bilaterally. GI: Abdomen is obese, Bowel sounds present X 4 quads. Abd is soft and non tender X 4 quads. Derm: Skin is intact, is healthy with good turgor, Skin is dry, Skin is pink, warm & dry. normal, Skin temperature is warm. 07:15 General: Report to WANG Abdullahi, at [facility]. cf2 07:15 Reassessment: Patient states symptoms have improved. General: MD over to speak with cf2 patient. Trop elevated at 0.38 and explains to patient that she needs to be transferred to another facility for higher level of care. Patient agrees to transfer . 07:28 General: Appears in no apparent distress, obese, Behavior is appropriate for age, jjr reported 2 /10 substernal chest pressure after getting up to BSC pt reported slightly more SOB than baseline and chest pressure increased to 5/10, morphine administered per order. Neurological: No deficits noted. Cardiovascular: Rhythm is sinus tachycardia. Respiratory: Airway is patent Respiratory effort is even, unlabored, Respiratory pattern is regular. Derm: Skin is pink, warm & dry. Vital Signs: 04:34 BP 150 / 87; Pulse 110; Resp 18; Temp 96.7(T); Pulse Ox 95% on R/A; Weight 152.86 kg; nn1 Height 4 ft. 11 in. (149.86 cm); Pain 7/10; 04:43 BP 142 / 85 (auto/); cf2 04:43 Pulse 108 MON; Pulse Ox 93% ; cf2 04:50 Pulse 108 MON; Pulse Ox 95% ; cf2 05:00 Pulse 106 MON; Pulse Ox 95% ; cf2 05:13 Pulse 104 MON; Pulse Ox 93% ; cf2 05:24 Pulse 104 MON; Pulse Ox 93% ; cf2 05:45 Pulse 104 MON; Pulse Ox 92% ; cf2 06:04 Pulse 104 MON; Pulse Ox 90% ; cf2 06:19 BP 140 / 77 (auto/); cf2 06:20 Pulse 106 MON; Pulse Ox 92% ; cf2 06:34 BP 141 / 81 (auto/); cf2 06:35 Pulse 106 MON; cf2 06:49 BP 132 / 75 (auto/); cf2 06:51 Pulse 104 MON; cf2 06:53 Pulse 104 MON; Pulse Ox 95% ; cf2 07:04 BP 136 / 83 (auto/); cf2 07:05 Pulse 104 MON; Pulse Ox 94% ; cf2 07:19 BP 151 / 79 (auto/); jjr 07:20 Pulse 112 MON; Resp 20; Temp 98.4(O); Pulse Ox 94% on R/A; Pain 5/10; jjr 07:37 BP 123 / 74; Pulse 105; Resp 20; Pain 0/10; jjr 04:34 Body Mass Index 68.07 (152.86 kg, 149.86 cm) nn1 Vitals: 04:34 Log In Time: May 08, 2016 at 04:25. nn1 ED Course: 04:24 Patient visited by Nanette Harvey Reg. hs2 04:24 Patient moved to Waiting hs2 04:29 Triage Initiated nn1 04:36 Patient moved to 11 nn1 04:41 Jeb Melgar DO is Attending Physician. cs11 04:41 Patient visited by Jeb Melgar DO. cs11 04:49 Patient visited by Joan Cabrera City Engineer. jlm 04:49 EKG done. (by ED staff). Reviewed by Jeb Melgar DO. jl 04:57 Inserted saline lock: 20 gauge in left antecubital area The patient tolerated the kas2 procedure well. 05:00 Karen Amaral,WANG is Primary Nurse. cf2 05:00 Patient visited by Karen Amaral,WANG. cf2 05:18 Lipase Sent. cf2 05:18 Amylase Sent. cf2 05:18 CBC with Diff Sent. cf2 05:18 MED Profile Sent. cf2 05:18 Liver Profile Sent. cf2 05:18 Cardiac Marker Panel Sent. cf2 06:00 Patient visited by Karen Amaral,WANG. cf2 06:49 Patient visited by Karen Amaral,WANG. cf2 07:09 Patient visited by Karen Amaral,WANG. cf2 07:18 The patient / caregiver is instructed regarding the plan of care and ED course. Patient cf2 has correct armband on for positive identification. Placed in gown. Bed in low position. Call light in reach. Side rails up X 1. Side rails up X2. Adult w/ patient. monitoring manager on. Pulse ox on. NIBP on. Property :Personal belongings accompany Pt. Door closed. Noise minimized. Visitors limited. Lights dimmed. Moved to private room. Verbal reassurance given. Warm blanket given. Pillow given. Head of bed elevated. Diet: Patient is NPO. 07:18 No procedures done that require assistance. cf2 07:18 O2 via nasal cannula \T\ 2L/min. cf2 07:20 [facility] Payment Agreement was scanned into [employer] and attached to record. hs2 09:48 Chest, 1 View Returned. EDMS 12:30 EKG-ADULT Returned. EDMS 05/09 12:09 T-Sheet-- Draft Copy was scanned into [employer] and attached to record. gb 12:09 ECG/EKG was scanned into [employer] and attached to record. gb Administered Medications: 05/08 05:26 Drug: NS 0.9% 500 ml [sodium chloride 0.9 % intravenous solution] Route: IV; Rate: cf2 bolus; Site: left antecubital; 05:26 Drug: Metoclopramide 10 mg [metoclopramide 5 mg/mL injection solution] Route: IV; Rate: cf2 40 mg/hr; Infused Over: 15 mins; Site: left antecubital; 05:26 Drug: Aspirin 324 mg [aspirin 81 mg chewable tablet (4 tabs)] Route: PO; cf2 06:14 Drug: Plavix - Clopidogrel 75 mg [clopidogrel 75 mg tablet (1 tabs)] Route: PO; jp6 06:14 Drug: Metoprolol 50 mg [metoprolol tartrate 50 mg tablet (1 tabs)] Route: PO; jp6 06:15 Drug: heparin (Thrombolytic Protocol, 12 units/kg/hr)) 62577 units [heparin (porcine) jp6 25,000 unit/250 mL (100 unit/mL) in dextrose 5 % IV] {Co-Signature: cf2 (Karen Amaral RN).} Route: IV; Rate: 1000 units/hr; Site: left antecubital; 06:16 Drug: heparin (Thrombolytic Protocol, 60 units/kg)) 4000 units [heparin (porcine) 5,000 jp6 unit/mL injection solution (0.8 mL)] {Co-Signature: cf2 (Karen Amaral RN).} Route: IVP; Site: left antecubital; 07:27 Drug: morphine 2 mg [morphine 2 mg/mL intravenous cartridge (1 mL)] Route: IVP; Site: jjr left wrist; Order Results: Lab Order: CBC with Diff; SPEC'M 05/08/16 05:16 Test: WHITE BLOOD COUNT; Value: 6.7; Range: 4.0-10.0; Units: K/mm3; Status: F Test: RED BLOOD COUNT; Value: 5.12; Range: 4.00-5.40; Units: M/mm3; Status: F Test: HEMOGLOBIN; Value: 15.4; Range: 12.0-16.0; Units: g/dl; Status: F Test: HEMATOCRIT; Value: 47.2; Range: 36.0-47.0; Abnormal: Above high normal; Units: %; Status: F Test: MEAN CORPUSCULAR VOLUME; Value: 92.2; Range: 80.0-96.0; Units: fl; Status: F Test: MEAN CORPUSCULAR HEMOGLOBIN; Value: 30.1; Range: 27.0-33.0; Units: pg; Status: F Test: MEAN CORPUSCULAR HGB CONC; Value: 32.7; Range: 32.0-36.5; Units: g/dl; Status: F Test: RED CELL DISTRIBUTION WIDTH; Value: 12.8; Range: 11.5-14.5; Units: %; Status: F Test: PLATELET COUNT, AUTOMATED; Value: 162; Range: 150-450; Units: k/mm3; Status: F Test: NEUTROPHILS %; Value: 85.2; Range: 36.0-66.0; Abnormal: Above high normal; Units: %; Status: F Test: LYMPH %; Value: 10.0; Range: 24.0-44.0; Abnormal: Below low normal; Units: %; Status: F Test: MONO %; Value: 3.1; Range: 0.0-5.0; Units: %; Status: F Test: EOS %; Value: 0.7; Range: 0.0-3.0; Units: %; Status: F Test: BASO %; Value: 0.2; Range: 0.0-1.0; Units: %; Status: F Test: LARGE UNSTAINED CELL %; Value: 0.8; Range: 0.0-4.0; Units: %; Status: F Test: NEUTROPHILS #; Value: 5.7; Range: 1.8-7.7; Units: K/mm3; Status: F Test: LYMPH #; Value: 0.7; Range: 1.5-4.5; Abnormal: Below low normal; Units: K/mm3; Status: F Test: MONO #; Value: 0.2; Range: 0.0-0.8; Units: K/mm3; Status: F Test: EOS #; Value: 0.0; Range: 0.0-0.50; Units: K/mm3; Status: F Test: BASO #; Value: 0.0; Range: 0.0-0.2; Units: K/mm3; Status: F Test: LARGE UNSTAINED CELL #; Value: 0.1; Range: 0.0-0.4; Units: K/mm3; Status: F Lab Order: MED Profile; SPEC'M 05/08/16 05:16 Test: GLUCOSE, FASTING; Value: 186; Range: 70-105; Abnormal: Above high normal; Units: MG/DL; Status: F Test: BLOOD UREA NITROGEN; Value: 12; Range: 7-18; Units: MG/DL; Status: F Test: CREATININE FOR GFR; Value: 0.70; Range: 0.55-1.02; Units: MG/DL; Status: F Test: GLOMERULAR FILTRATION RATE; Value: > 60.0; Range: >51; Status: F Test: SODIUM LEVEL; Value: 137; Range: 136-145; Units: MEQ/L; Status: F Test: POTASSIUM SERUM; Value: 3.7; Range: 3.5-5.1; Units: MEQ/L; Status: F Test: CHLORIDE LEVEL; Value: 98; Range: 98-107; Units: MEQ/L; Status: F Test: CARBON DIOXIDE LEVEL; Value: 27; Range: 21-32; Units: MEQ/L; Status: F Test: ANION GAP; Value: 12; Range: 8-16; Units: MEQ/L; Status: F Test: CALCIUM LEVEL; Value: 8.5; Range: 8.5-10.1; Units: MG/DL; Status: F Test Note: ; Units are mL/min/1.73 m2 Chronic Kidney Disease Staging per NKF: Stage I & II GFR >=60 Normal to Mildly Decreased Stage III GFR 30-59 Moderately Decreased Stage IV GFR 15-29 Severely Decreased Stage V GFR <15 Very Little GFR Left ESRD GFR <15 on LIGHTNING ROD ERECTOR Lab Order: Liver Profile; SPEC'M 05/08/16 05:16 Test: AST/SGOT; Value: 47; Range: 15-37; Abnormal: Above high normal; Units: U/L; Status: F Test: ALT/SGPT; Value: 38; Range: 12-78; Units: U/L; Status: F Test: ALKALINE PHOSPHATASE; Value: 80; Range: 45-117; Units: U/L; Status: F Test: BILIRUBIN,TOTAL; Value: 0.7; Range: 0.2-1.0; Units: MG/DL; Status: F Test: BILIRUBIN,DIRECT; Value: 0.2; Range: 0.0-0.2; Units: MG/DL; Status: F Test: TOTAL PROTEIN; Value: 8.2; Range: 6.4-8.2; Units: GM/DL; Status: F Test: ALBUMIN; Value: 3.9; Range: 3.2-5.2; Units: GM/DL; Status: F Test: ALBUMIN/GLOBULIN RATIO; Value: 0.91; Range: 1.00-1.93; Abnormal: Below low normal; Status: F Lab Order: Amylase; SPEC' 05/08/16 05:16 Test: AMYLASE; Value: 21; Range: 25-115; Abnormal: Below low normal; Units: U/L; Status: F Lab Order: Lipase; [facility] 05/08/16 05:16 Test: LIPASE; Value: 134; Range: 73-393; Units: U/L; Status: F Lab Order: Cardiac Marker Panel; SPEC 05/08/16 05:16 Test: CPK CREATINE PHOSPHOKINASE; Value: 91; Range: 26-192; Units: U/L; Status: F Test: CK-MB VALUE MASS; Value: 1.5; Range: 0.0-3.6; Units: NG/ML; Status: F Test: MB/CK RELATIVE INDEX; Value: 1.64; Range: < OR =4; Status: F Test: TROPONIN I; Value: 0.38; Range: < 0.10; Abnormal: Above high normal; Units: NG/ML; Status: F Test Note: ; DIAGNOSIS CRITERIA MMB ng/ml Relative Index (RI) NON-AMI < or = 5 N/A [place] ZONE > 5 < or = 4 AMI > 5 > 4 Lab Order: Fingerstick Blood Sugar; SPEC'M 05/08/16 05:09 Test: BEDSIDE GLUCOSE; Value: 185; Range: 70-105; Abnormal: Above high normal; Units: MG/DL; Status: F Lab Order: Pt & Aptt: prior to heparinization; SPEC'M 05/08/16 05:16 Test: PROTHROMBIN TIME; Value: 14.7; Range: 12.3-14.5; Abnormal: Above high normal; Units: SECONDS; Status: F Test: INR; Value: 1.14; Status: F Test: PARTIAL THROMBOPLASTIN TIME; Value: 30.8; Range: 26.6-37.1; Units: SECONDS; Status: F Test Note: ; THERAPUTIC HUMAN INR VALUES INDICATIONS NORMAL RANGES PROPHYLAXIS/TREATMENT OF: VENOUS THROMBOSIS 2.0-3.0 PULMONARY EMBOLISM 2.0-3.0 PREVENTION OF SYSTEMIC EMBOLISM FROM: TISSUE HEART VALVES 2.0-3.0 ACUTE MYOCARDIAL INFARCTION 2.0-3.0 VALVULAR HEART DISEASE 2.0-3.0 ATRIAL FIBRILLATION 2.0-3.0 MECHANICAL VALVES(HIGH RISK) 2.5-3.5 RECURRENT MYOCARDIAL INFARCTION 2.5-3.5 Radiology Order: EKG-ADULT Test: EKG-ADULT REASON FOR EXAMINATION: Chest Pain; Stationary ECG Study; [facility] - ED; ; Test Date: 2016-05-08; Pat Name: CELESTINA ELLISON Department:; Room: -; Gender: F Internet Webmaster: ramonita; : 1960 Requested By: JEB MELGAR; Order Number: [id number] Reading MD: Ananya Stokes; Measurements; Intervals [place]; Rate: 108 P: 45; [place]: 171 QRS: 46; QRSD: 100 T: 16; QT: 369; QTc: 495; Interpretive Statements; SINUS TACHYCARDIA; NSTTW ABNORMALITY - MORE PRONOUNCED 02/13/15; Electronically Signed On 05-08-2016 12:07:20 EST by Ananya Stokes; Radiology Order: Chest, 1 View Test: Chest, 1 View REASON FOR EXAMINATION: Chest Pain; Clinical: Chest pain .; ; Comparison: 11/24/2011 .; ; Findings:; The mediastinum and cardiac silhouette are stable and within normal limits for; portable technique. The lung landa are clear without acute consolidation,; effusion, or pneumothorax. Skeletal structures are intact.; ; Impression:; Normal portable chest x-ray; ; ; Signed by; Polo Abad MD 05/08/2016 09:07 A; Outcome: 06:17 ER care complete, transfer ordered by Provider. cs11 07:29 Discharge Assessment: patient administered narcotics - yes. Patient was admitted to the [facility] or transferred to another facility. The following High Risk Discharge criteria are identified: None. Transferred to [facility]. by EMS ground [facility] ambulance report to accompanying personnel Landy, Transfer form completed. x-rays sent w/ patient. Condition: stable. No special radiology studies were completed. 07:38 Patient left the ED. [facility] Signatures: Dispatcher [employer] EDMS Kaitlyn Morrow, Reg Reg gb Venice Zavala, RN WAGN r Jeb Mlegar, DO DO cs11 Joan Cabrera, City Engineer Unit [facility] Deejay Blanchard,RN RN nn1 Nanette Harvey, Reg Reg hs2 Michelle KaurRN RN kas2 Venice Yang RN RN jp6 Karen Amaral RN RN cf2 Karen Amaral RN cf2 Chart Complete MTDD
== END 2016-05-08 07:38 | disposition short-term general hospital (02) ==
LOC: M ED 04:23
DX: I21.4 Non-ST elevation (NSTEMI) myocardial infarction (principal); I10 Essential (primary) hypertension; E78.00 Pure hypercholesterolemia, unspecified; K21.9 Gastro-esophageal reflux disease without esophagitis; E11.9 Type 2 diabetes mellitus without complications; M50.20 Other cervical disc displacement, unspecified cervical region; Z90.79 Acquired absence of other genital organ(s); Z90.49 Acquired absence of other specified parts of digestive tract; Z79.899 Other long term (current) drug therapy; Z91.040 Latex allergy status; Z91.030 Bee allergy status
CPT/HCPCS: 71010; 80048; 80076; 82150; 82550; 82553; 83690; 84484; 85025; 85610; 85730; 93005; 96374; 96375; 99285; J2765

== ENCOUNTER → 2016-05-23 | Outpatient (CLI) | payer MEDICARE ==
[~2016-05-23] MED LIST changes: -PRIL20CA PO; +PRIL20CA9 PO
== END ==
LOC: M RAD 07:15
PROVIDERS: ATTEND Family Medicine
DX: Z12.31 Encounter for screening mammogram for malignant neoplasm of breast (principal); Z53.8 Procedure and treatment not carried out for other reasons

== ENCOUNTER → 2016-05-26 | Outpatient (REF) | payer MEDICARE | LOC: M SFHCPLAZ 17:08 | PROVIDERS: ATTEND Family Medicine | DX: L98.0 Pyogenic granuloma (principal); D18.01 Hemangioma of skin and subcutaneous tissue | CPT/HCPCS: 11100; 17110; 88305; G0463 ==

== ENCOUNTER → 2016-06-06 | Outpatient (REF) | payer MEDICARE ==
[2016-06-06 14:03] LABS: ALBUMIN 3.8 GM/DL (3.2-5.2); ALBUMIN/GLOBULIN RATIO 1.03 (1.00-1.93); ALKALINE PHOSPHATASE 64 U/L (45-117); ALT/SGPT 42 U/L (12-78); ANION GAP 5 MEQ/L (8-16); AST/SGOT 40 U/L (15-37); BILIRUBIN,TOTAL 0.4 MG/DL (0.2-1.0); BLOOD UREA NITROGEN 11 MG/DL (7-18); CALCIUM LEVEL 8.5 MG/DL (8.5-10.1); CARBON DIOXIDE LEVEL 31 MEQ/L (21-32); CHLORIDE LEVEL 106 MEQ/L (98-107); CHOLESTEROL LEVEL 126 MG/DL (<200); CREATININE FOR GFR 0.74 MG/DL (0.55-1.02); GLOMERULAR FILTRATION RATE > 60.0 (>51); GLUCOSE, FASTING 112 MG/DL (70-105); SODIUM LEVEL 142 MEQ/L (136-145); TOTAL PROTEIN 7.5 GM/DL (6.4-8.2); TRIGLYCERIDES LEVEL 107 MG/DL (<150)
== END ==
LOC: M LABDRAW1 13:18
PROVIDERS: ATTEND Family Medicine
DX: Z13.220 Encounter for screening for lipoid disorders (principal); E11.8 Type 2 diabetes mellitus with unspecified complications; F31.30 Bipolar disorder, current episode depressed, mild or moderate severity, unspecified; I10 Essential (primary) hypertension; Z13.21 Encounter for screening for nutritional disorder

== ENCOUNTER → 2016-08-11 | Outpatient (REF) | payer MEDICARE | LOC: M SFHCPLAZ 12:05 | PROVIDERS: ATTEND Family Medicine | DX: E66.01 Morbid (severe) obesity due to excess calories (principal); Z68.44 Body mass index [BMI] 60.0-69.9, adult; Z53.8 Procedure and treatment not carried out for other reasons ==

== ENCOUNTER 2016-08-24 12:11 | Emergency (ER) | payer MEDICARE ==
[~2016-08-24] VITALS: Ht 149.9 cm; Wt 140.2 kg
[2016-08-24] MEDS ORDERED: GABA-282 PO (12:25)
[2016-08-24] MEDS ORDERED: FLUO20CA8 PO (12:25)
[2016-08-24] MEDS ORDERED: PHEN15CA58 PO (12:25)
[2016-08-24] MEDS ORDERED: VICT18IN SC (12:25)
[2016-08-24] MEDS ORDERED: TOPA25TA10 PO (12:25)
[2016-08-24] MEDS ORDERED: PROT1TAB2 PO (12:25)
--- NOTE | 2016-08-24 13:07 | REP ---
Right foot four views: Comparison is 03/19/2016. There is no fracture or dislocation. Demineralization is again noted, unchanged. 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 This is unchanged. There are calcaneal plantar and Achilles spurs. There is soft tissue swelling over the dorsum. This is unchanged. Impression: No fracture or dislocation. No interval change. Signed by Adrián Cooper MD 08/24/2016 12:58 P
[2016-08-24] MEDS ORDERED: IBUP600T26 PO (13:46)
[2016-08-24 14:02] VITALS: BP 130/68
== END 2016-08-24 14:05 | disposition home or self-care (01) ==
LOC: M ED 13:42
DX: S96.211A Strain of intrinsic muscle and tendon at ankle and foot level, right foot, initial encounter (principal); X58.XXXA Exposure to other specified factors, initial encounter; Y92.838 Other recreation area as the place of occurrence of the external cause; Y93.89 Activity, other specified; Y99.9 Unspecified external cause status

== ENCOUNTER 2016-12-02 17:00 | Emergency (ER) | payer MEDICARE, OTHER ==
[~2016-12-02] VITALS: Ht 149.9 cm; Wt 125.4 kg
[~2016-12-02 17:00] MED LIST changes: +FLUO20CA8 PO; +GABA-282 PO; +IBUP-1022 PO; -METF1000 PO; +METF10004 PO; +PHEN15CA PO; +PROT1TAB2 PO; +TOPA1TAB PO; +TRAZ-136 PO; -TRAZ100T4 PO; +VICT18IN SC
[2016-12-02] MEDS ORDERED: NS 1,000 ML IV SCH (19:24)
[2016-12-02] MEDS ORDERED: MORPHINE 4 MG/ML 1ML SYRINGE IV PRN (19:30)
[2016-12-02] MEDS ORDERED: GASTROGRAFIN SOLUTION 30ML (Q9963) PO ONE (19:45)
[2016-12-02 19:59] LABS: BASO % 0.5 % (0.0-1.0); EOS # 0.1 K/mm3 (0.0-0.50); EOS % 1.7 % (0.0-3.0); LARGE UNSTAINED CELL # 0.1 K/mm3 (0.0-0.4); LARGE UNSTAINED CELL % 1.7 % (0.0-4.0); LYMPH # 1.7 K/mm3 (1.5-4.5); LYMPH % 29.2 % (24.0-44.0); MEAN CORPUSCULAR HEMOGLOBIN 30.9 pg (27.0-33.0); MEAN CORPUSCULAR HGB CONC 32.3 g/dl (32.0-36.5); MEAN CORPUSCULAR VOLUME 95.8 fl (80.0-96.0); MONO # 0.4 K/mm3 (0.0-0.8); MONO % 6.2 % (0.0-5.0); NEUTROPHILS # 3.4 K/mm3 (1.8-7.7); NEUTROPHILS % 60.7 % (36.0-66.0); PLATELET COUNT, AUTOMATED 173 k/mm3 (150-450); RED CELL DISTRIBUTION WIDTH 13.8 % (11.5-14.5); WHITE BLOOD COUNT 5.6 K/mm3 (4.0-10.0)
[2016-12-02 20:26] LABS: ALBUMIN 4.2 GM/DL (3.2-5.2); ALKALINE PHOSPHATASE 66 U/L (45-117); ALT/SGPT 32 U/L (12-78); ANION GAP 7 MEQ/L (8-16); AST/SGOT 35 U/L (15-37); BILIRUBIN,DIRECT 0.2 MG/DL (0.0-0.2); BILIRUBIN,TOTAL 0.5 MG/DL (0.2-1.0); BLOOD UREA NITROGEN 15 MG/DL (7-18); CARBON DIOXIDE LEVEL 28 MEQ/L (21-32); CHLORIDE LEVEL 103 MEQ/L (98-107); CREATININE FOR GFR 0.74 MG/DL (0.55-1.02); GLOMERULAR FILTRATION RATE > 60.0 (>51); GLUCOSE, FASTING 89 MG/DL (70-105); POTASSIUM SERUM 3.6 MEQ/L (3.5-5.1); SODIUM LEVEL 138 MEQ/L (136-145); TOTAL PROTEIN 8.4 GM/DL (6.4-8.2)
[2016-12-02] MEDS ORDERED: ISOVUE-370 76% 100ML VIAL (Q9967) As Ordered ONE (21:23)
[2016-12-02] MEDS ORDERED: NS 1,000 ML IV ONE (21:45)
--- NOTE | 2016-12-02 22:40 | REPUSA ---
CLINICAL HISTORY: Abdominal pain. TECHNIQUE: Multiple axial, sagittal and coronal CT images were obtained through the abdomen and pelvi s after administration of oral and intravenous contrast material. COMMENTS: The liver is of uniform attenuation without mass or defect. There is no intra or extrahepatic biliary ductal dilatation. The spleen is enlarged, 14.5 cm. the gallbladder is surgically absent. The pancr eas is of normal contour and attenuation characteristics. There is no evidence of adrenal mass. Both kidneys demonstrate prompt and equal nephrograms. The kidneys are normal in size, shape and conf iguration. There is no evidence of renal or ureteral mass. No renal or ureteral calculi are identifie d. There is no hydroureter or hydronephrosis. No evidence for appendicitis. There are fluid-filled thick-walled loops of ileum noted compatible wi th ileitis. No evidence for small or large bowel obstruction. There is no evidence of abdominal asci andres or lymphadenopathy. Note is made of a large left lateral abdominal wall hernia containing fat and colon. There is no inc arceration or obstruction There is no evidence of intrinsic or extrinsic bladder mass. Small amount of fluid is present in the pelvic cul-de-sac. Status post complete hysterectomy. Images of the lung bases show no evidence of pleural or parenchymal mass. There are no pleural effusi ons. The bony structures are free of lytic or blastic lesions. Multilevel degenerative changes are seen in volving the thoracolumbar spine. Scattered calcifications are seen involving the aorta and major bran ches compatible with atherosclerosis. IMPRESSION: Fluid-filled thick-walled loops of ileum noted compatible with ileitis. Large left lateral abdominal wall hernia containing fat and colon. Small amount of fluid is present in the pelvic cul-de-sac. Status post complete hysterectomy. Thank you for your kind referral of this patient.
[2016-12-02] MEDS ORDERED: FLAG500T PO (23:00)
[2016-12-02] MEDS ORDERED: metroNIDAZOLE (FLAGYL) 500 MG TAB PO ONE (23:00)
[2016-12-02 23:35] VITALS: BP 122/56
--- NOTE | 2016-12-03 07:28 | ED PDOC ---
Post-Departure Follow-Up radiology report faxed to [facility] Ananya Castillo MD Dec 03, 2016 07:28
== END 2016-12-03 | disposition home or self-care (01) ==
LOC: M ED 17:00
DX: K52.9 Noninfective gastroenteritis and colitis, unspecified (principal); E11.9 Type 2 diabetes mellitus without complications; I10 Essential (primary) hypertension; E78.4 Other hyperlipidemia; F41.9 Anxiety disorder, unspecified; F32.9 Major depressive disorder, single episode, unspecified; Z79.4 Long term (current) use of insulin
CPT/HCPCS: 74177; 80048; 80076; 81001; 83605; 83690; 85025; 87088; 87186; 96374; 99283; Q9963; Q9967

== ENCOUNTER 2016-12-06 11:08 | Emergency (ER) | payer MEDICARE ==
[~2016-12-06] VITALS: Ht 149.9 cm; Wt 125.5 kg
[~2016-12-06 11:08] MED LIST changes: +FLAG500T PO
[2016-12-06 11:09] VITALS: BP 137/87
[2016-12-06] MEDS ORDERED: CIPR500T3 PO (12:14)
[2016-12-06] MEDS ORDERED: CIPR-249 PO (12:15)
[2016-12-06] MEDS ORDERED: HYDR-3363 PO (12:22)
== END 2016-12-06 12:28 | disposition home or self-care (01) ==
LOC: M ED 11:08
DX: R21 Rash and other nonspecific skin eruption (principal); E11.9 Type 2 diabetes mellitus without complications; I10 Essential (primary) hypertension; F41.9 Anxiety disorder, unspecified; F32.9 Major depressive disorder, single episode, unspecified; E78.4 Other hyperlipidemia; Z79.4 Long term (current) use of insulin

== ENCOUNTER → 2017-01-15 | Outpatient (CLI) | payer MEDICARE ==
[~2017-01-15] MED LIST changes: +CIPR-249 PO; +CIPR500T3 PO; +HYDR-3363 PO
--- NOTE | 2017-01-20 11:30 | SLEEPCENT ---
DATE OF PROCEDURE: 01/15/2017 REQUESTING PROVIDER: Katie Wallace NP INTERPRETATION: Nocturnal polysomnography was performed for evaluation of this patient with complaints of excessive somnolence and nonrestorative sleep complicated by diabetes and history of depressive disorder who is scheduled for bariatric surgery. 7 hours and 26 minutes of data were reviewed. There were 362 minutes of sleep identified. Sleep latency was prolonged at 26 minutes. Rapid eye movement (REM) latency was prolonged at 168 minutes. Sleep architecture was fragmented but only one REM period was appreciated. Overall sleep efficiency was 83%. The patient's electrocardiogram (EKG) showed a sinus rhythm with an average heart rate of 75 beats per minute. Electroencephalogram (EEG) showed fairly normal waveforms for awake and sleep stages. There were 52 respiratory events identified of 10 seconds in duration or greater for an apnea-hypopnea index of 8.6. The events were primarily obstructive, not exclusive to sleep stage nor body posture. Arousals from respiratory events occurred 5.3 times per hour. Desaturations were seen into the 80s. Some limb activity was noted. Two trains of events were seen. Limb movement arousal index was 6.1. IMPRESSION: 1. Obstructive sleep apnea syndrome (G47.33). Apnea-hypopnea index of 8.6. 2. Mild periodic limb movement disorder (G47.61). Limb movement arousal index of 6.1. RECOMMENDATIONS: The patient should be referred back to the sleep disorder center for pressure therapy. In the interim, alcohol and sedative avoidance should be practiced and caution exercised during the operation of motor vehicles. Pending response to pressure therapy, interventions to reduce the frequency of arousals from limb activity may also be helpful.
== END ==
LOC: M SLEEP 19:48
PROVIDERS: ATTEND Nurse Practitioner Adult Health
DX: G47.33 Obstructive sleep apnea (adult) (pediatric) (principal); G47.61 Periodic limb movement disorder

== ENCOUNTER → 2017-01-19 | Outpatient (CLI) | payer MEDICARE ==
[2017-01-19 13:57] LABS: ALBUMIN 3.6 GM/DL (3.2-5.2); ALKALINE PHOSPHATASE 72 U/L (45-117); ALT/SGPT 40 U/L (12-78); ANION GAP 7 MEQ/L (8-16); AST/SGOT 45 U/L (15-37); BILIRUBIN,TOTAL 0.6 MG/DL (0.2-1.0); BLOOD UREA NITROGEN 14 MG/DL (7-18); CALCIUM LEVEL 8.8 MG/DL (8.5-10.1); CARBON DIOXIDE LEVEL 28 MEQ/L (21-32); CHLORIDE LEVEL 109 MEQ/L (98-107); CHOLESTEROL LEVEL 156 MG/DL (<200); CREATININE FOR GFR 0.57 MG/DL (0.55-1.02); GLOMERULAR FILTRATION RATE > 60.0 (>51); GLUCOSE, FASTING 90 MG/DL (70-105); SODIUM LEVEL 144 MEQ/L (136-145); TOTAL PROTEIN 7.2 GM/DL (6.4-8.2); TRIGLYCERIDES LEVEL 103 MG/DL (<150)
== END ==
LOC: M LAB 12:32
PROVIDERS: ATTEND Student in an Organized Health Care Education/Training Program
DX: E11.9 Type 2 diabetes mellitus without complications (principal)

== ENCOUNTER → 2017-02-06 | Outpatient (CLI) | payer MEDICARE ==
--- NOTE | 2017-02-10 19:22 | SLEEPCENT ---
DATE OF PROCEDURE: 02/06/2017 REFERRING PHYSICIAN: Katie Wallace Nocturnal polysomnography was performed for the titration of pressure therapy in this patient with obstructive sleep apnea syndrome, apnea-hypopnea index of 8.6. For testing, ResMed Quattro full face mask of extra-small size was used. 4 cm of water pressure were applied to the circuit and the lights were extinguished. 8 hours and 22 minutes of data were reviewed. There were 427 minutes of sleep identified. Sleep latency was prolonged at 21 minutes. Rapid eye movement (REM) latency was prolonged at 183 minutes. Sleep architecture showed fragmentation. Progression was fairly well maintained. There were two REM periods appreciated. Overall sleep efficiency was 86.4%. Electrocardiogram showed a sinus rhythm with an average heart rate of 72 beats per minute. EEG showed fairly normal waveforms for awake and sleep. Some alpha intrusions suspected. Respiratory events were fully palliated with CPAP at a pressure +9. There was some limb activity appreciated. Only one train of 30 events. Limb movement arousal index of 6.7. IMPRESSION: Obstructive sleep apnea syndrome (G47.33). RECOMMENDATION: Nightly use of pressure therapy, 9 cm of water.
== END ==
LOC: M SLEEP 19:43
PROVIDERS: ATTEND Nurse Practitioner Adult Health
DX: G47.33 Obstructive sleep apnea (adult) (pediatric) (principal)

== ENCOUNTER → 2017-03-19 | Outpatient (CLI) | payer MEDICARE ==
[2017-03-19 12:20] LABS: BASO % 0.5 % (0.0-1.0); EOS # 0.1 10^3/uL (0.0-0.50); EOS % 3.1 % (0.0-3.0); LYMPH # 1.8 10^3/uL (1.5-4.5); LYMPH % 45.5 % (24.0-44.0); MEAN CORPUSCULAR HEMOGLOBIN 30.5 pg (27.0-33.0); MEAN CORPUSCULAR HGB CONC 32.9 g/dl (32.0-36.5); MEAN CORPUSCULAR VOLUME 92.8 fl (80.0-96.0); MONO # 0.4 10^3/uL (0.0-0.8); MONO % 10.2 % (0.0-5.0); NEUTROPHILS # 1.6 10^3/uL (1.8-7.7); NEUTROPHILS % 40.7 % (36.0-66.0); PLATELET COUNT, AUTOMATED 176 10^3/uL (150-450); RED CELL DISTRIBUTION WIDTH 14.3 % (11.5-14.5); WHITE BLOOD COUNT 3.9 10^3/uL (4.0-10.0)
[2017-03-19 12:53] LABS: ALBUMIN 3.4 GM/DL (3.2-5.2); ALKALINE PHOSPHATASE 70 U/L (45-117); ALT/SGPT 25 U/L (12-78); ANION GAP 6 MEQ/L (8-16); AST/SGOT 33 U/L (7-37); BILIRUBIN,TOTAL 0.5 MG/DL (0.2-1.0); BLOOD UREA NITROGEN 10 MG/DL (7-18); CARBON DIOXIDE LEVEL 30 MEQ/L (21-32); CHLORIDE LEVEL 106 MEQ/L (98-107); CREATININE FOR GFR 0.62 MG/DL (0.55-1.02); FERRITIN 82 NG/ML (8-252); GLOMERULAR FILTRATION RATE > 60.0 (>51); GLUCOSE, FASTING 104 MG/DL (70-105); MAGNESIUM LEVEL 2.1 MG/DL (1.8-2.4); PHOSPHORUS LEVEL 3.4 MG/DL (2.5-4.9); POTASSIUM SERUM 3.7 MEQ/L (3.5-5.1); SODIUM LEVEL 142 MEQ/L (136-145); TOTAL IRON BINDING CAPACITY 225 UG/DL (250-450); TOTAL PROTEIN 6.5 GM/DL (6.4-8.2)
[2017-03-19 13:27] LABS: VITAMIN B12 LEVEL 946 PG/ML (247-911)
[2017-03-20 11:27] LABS: PRETREATED FOLATE FOR RBCFOL 9.8 NG/ML
== END ==
LOC: M LAB 11:38
PROVIDERS: ATTEND Surgery
DX: K91.2 Postsurgical malabsorption, not elsewhere classified (principal); Z98.84 Bariatric surgery status

== ENCOUNTER → 2017-07-20 | Outpatient (CLI) | payer MEDICARE, MEDICAID ==
[2017-07-20 16:16] LABS: TOTAL 25(OH) VITAMIN D 33.2 NG/ML (30.0-100.0); VITAMIN B12 LEVEL 771 PG/ML (247-911)
[2017-07-20 16:18] LABS: FOLATE 23.6 NG/ML (>5.4)
[2017-07-20 16:23] LABS: ALBUMIN 3.5 GM/DL (3.2-5.2); ALKALINE PHOSPHATASE 113 U/L (45-117); ALT/SGPT 46 U/L (12-78); ANION GAP 8 MEQ/L (8-16); AST/SGOT 43 U/L (7-37); BILIRUBIN,DIRECT 0.1 MG/DL (0.0-0.2); BILIRUBIN,TOTAL 0.3 MG/DL (0.2-1.0); BLOOD UREA NITROGEN 10 MG/DL (7-18); CALCIUM LEVEL 8.7 MG/DL (8.5-10.1); CARBON DIOXIDE LEVEL 30 MEQ/L (21-32); CHLORIDE LEVEL 105 MEQ/L (98-107); CHOLESTEROL LEVEL 101 MG/DL (<200); CHOLESTEROL RISK RATIO 2.244 (<5); GLOMERULAR FILTRATION RATE > 60.0 (>51); GLUCOSE, FASTING 97 MG/DL (70-100); HDL CHOLESTEROL 45 MG/DL (>40); NON-HDL-C 56 MG/DL; POTASSIUM SERUM 3.9 MEQ/L (3.5-5.1); SODIUM LEVEL 143 MEQ/L (136-145); TOTAL PROTEIN 7.4 GM/DL (6.4-8.2); TRIGLYCERIDES LEVEL 80 MG/DL (<150)
[2017-07-20 16:27] LABS: ESTIMATED AVERAGE GLUCOSE 103 MG/DL (60-110); HEMOGLOBIN A1c 5.2 %
== END ==
LOC: M LAB 15:11
DX: E11.9 Type 2 diabetes mellitus without complications (principal); E78.00 Pure hypercholesterolemia, unspecified; M54.5 Low back pain; M47.817 Spondylosis without myelopathy or radiculopathy, lumbosacral region; M51.36 Other intervertebral disc degeneration, lumbar region; G89.29 Other chronic pain
CPT/HCPCS: 72114

== ENCOUNTER → 2017-11-05 | Outpatient (CLI) | payer MEDICARE ==
[2017-11-05 15:24] LABS: BASO % 0.5 % (0.0-1.0); EOS # 0.1 10^3/uL (0.0-0.50); EOS % 1.4 % (0.0-3.0); HEMATOCRIT 39.9 % (36.0-47.0); HEMOGLOBIN 13.3 g/dl (12.0-15.5); IMMATURE GRANULOCYTE % 0.2 % (0-3.0); LYMPH # 1.8 10^3/uL (1.5-4.5); MEAN CORPUSCULAR HGB CONC 33.3 g/dl (32.0-36.5); MONO # 0.3 10^3/uL (0.0-0.8); MONO % 7.7 % (0.0-5.0); NEUTROPHILS # 2.1 10^3/uL (1.8-7.7); NEUTROPHILS % 49.2 % (36.0-66.0); PLATELET COUNT, AUTOMATED 165 10^3/uL (150-450); RED BLOOD COUNT 4.29 10^6/uL (4.00-5.40); RED CELL DISTRIBUTION WIDTH 12.8 % (11.5-14.5); WHITE BLOOD COUNT 4.3 10^3/uL (4.0-10.0)
[2017-11-05 15:28] LABS: HEMATOCRIT 39.9 % (36.0-47.0)
[2017-11-05 15:51] LABS: ESTIMATED AVERAGE GLUCOSE 117 MG/DL (60-110); HEMOGLOBIN A1c 5.7 %
[2017-11-05 16:01] LABS: TOTAL 25(OH) VITAMIN D 19.6 NG/ML (30.0-100.0); VITAMIN B12 LEVEL 1970 PG/ML (247-911)
[2017-11-05 16:11] LABS: ALBUMIN 3.4 GM/DL (3.2-5.2); ALBUMIN/GLOBULIN RATIO 0.97 (1.00-1.93); ALKALINE PHOSPHATASE 78 U/L (45-117); ALT/SGPT 29 U/L (12-78); ANION GAP 9 MEQ/L (8-16); AST/SGOT 26 U/L (7-37); BILIRUBIN,TOTAL 0.4 MG/DL (0.2-1.0); BLOOD UREA NITROGEN 15 MG/DL (7-18); CALCIUM LEVEL 8.3 MG/DL (8.5-10.1); CARBON DIOXIDE LEVEL 29 MEQ/L (21-32); CHLORIDE LEVEL 106 MEQ/L (98-107); CREATININE FOR GFR 0.79 MG/DL (0.55-1.30); FERRITIN 63 NG/ML (8-252); GLOMERULAR FILTRATION RATE > 60.0 (>51); GLUCOSE, FASTING 172 MG/DL (70-100); IRON (FE) 79 UG/DL (50-170); MAGNESIUM LEVEL 1.8 MG/DL (1.8-2.4); PERCENT SATURATION 25.7 % (13.2-45.0); PHOSPHORUS LEVEL 3.7 MG/DL (2.5-4.9); POTASSIUM SERUM 3.8 MEQ/L (3.5-5.1); SODIUM LEVEL 144 MEQ/L (136-145); TOTAL IRON BINDING CAPACITY 307 UG/DL (250-450); TOTAL PROTEIN 6.9 GM/DL (6.4-8.2)
[2017-11-06 17:02] LABS: PRETREATED FOLATE FOR RBCFOL 12.9 NG/ML; RBC FOLATE 678.9 NG/ML (280-791)
== END ==
LOC: M LAB 14:52
DX: K91.2 Postsurgical malabsorption, not elsewhere classified (principal); Z98.84 Bariatric surgery status; E55.9 Vitamin D deficiency, unspecified
CPT/HCPCS: 83550

== ENCOUNTER → 2018-01-27 | Outpatient (CLI) | payer MEDICARE ==
[2018-01-27 17:15] LABS: CHOLESTEROL LEVEL 168 MG/DL (<200); HDL CHOLESTEROL 48 MG/DL (>40); LDL CHOLESTEROL 99 MG/DL (<100); NON-HDL-C 120 MG/DL; TRIGLYCERIDES LEVEL 107 MG/DL (<150)
[2018-01-27 19:49] LABS: TOTAL 25(OH) VITAMIN D 20.3 NG/ML (30.0-100.0); VITAMIN B12 LEVEL 1078 PG/ML (247-911)
== END ==
LOC: M LAB 10:41
DX: M16.11 Unilateral primary osteoarthritis, right hip (principal); M25.551 Pain in right hip; E66.01 Morbid (severe) obesity due to excess calories; Z68.42 Body mass index [BMI] 45.0-49.9, adult; I10 Essential (primary) hypertension; E11.9 Type 2 diabetes mellitus without complications; Z98.84 Bariatric surgery status
CPT/HCPCS: 73502

== ENCOUNTER → 2018-02-04 | Outpatient (CLI) | payer MEDICARE | LOC: M RAD 13:51 | DX: M16.11 Unilateral primary osteoarthritis, right hip (principal) | CPT/HCPCS: 72190 ==

== ENCOUNTER → 2018-02-11 | Outpatient (CLI) | payer MEDICARE ==
[~2018-02-11] MED LIST changes: -BUPR10TASR PO; -CALC600T7 PO; -CIPR-249 PO; -CIPR500T3 PO; -CITA20TA4 PO; -CYCL10TA PO; +E-Z-PAQUE 96% w/w SUSP 176GM BTL As Ordered; -ESTR0.5T3 PO; -FLAG500T PO; -FLUO20CA8 PO; -GABA-282 PO; -HYDR-3363 PO; -IBUP-1022 PO; -LAMI25TA PO; -LAMO5CHW PO; -LISI-542 PO; -METF10004 PO; -PHEN15CA PO; -PRIL20CA9 PO; -PROT1TAB2 PO; -SIMV40TA2 PO; -TOPA1TAB PO; -TRAZ-136 PO; -VICT18IN SC; -VIST50CA PO; -VITA500T53 PO; -ZOLM2.5T PO
== END ==
LOC: M RAD 07:39
DX: R10.32 Left lower quadrant pain (principal)
CPT/HCPCS: 74250

== ENCOUNTER 2018-02-19 07:31 | Outpatient (RCR) | payer MEDICARE | END 2018-03-03 | LOC: M PT 07:31 | DX: M25.551 Pain in right hip (principal) | CPT/HCPCS: 97110 ==

== ENCOUNTER 2018-02-24 14:07 | Emergency (ER) | payer MEDICARE ==
[2018-02-24 15:51] LABS: BASO % 0.4 % (0.0-1.0); EOS # 0.1 10^3/uL (0.0-0.50); EOS % 1.2 % (0.0-3.0); HEMATOCRIT 44.7 % (36.0-47.0); HEMOGLOBIN 14.8 g/dl (12.0-15.5); IMMATURE GRANULOCYTE % 0.4 % (0-3.0); LYMPH # 1.3 10^3/uL (1.5-4.5); LYMPH % 25.3 % (24.0-44.0); MEAN CORPUSCULAR HEMOGLOBIN 30.4 pg (27.0-33.0); MEAN CORPUSCULAR HGB CONC 33.1 g/dl (32.0-36.5); MEAN CORPUSCULAR VOLUME 91.8 fl (80.0-96.0); MONO # 0.5 10^3/uL (0.0-0.8); MONO % 9.7 % (0.0-5.0); NEUTROPHILS # 3.1 10^3/uL (1.8-7.7); PLATELET COUNT, AUTOMATED 159 10^3/uL (150-450); RED BLOOD COUNT 4.87 10^6/uL (4.00-5.40); RED CELL DISTRIBUTION WIDTH 12.9 % (11.5-14.5); WHITE BLOOD COUNT 4.9 10^3/uL (4.0-10.0)
[2018-02-24 16:01] LABS: KETONE, URINE AUTO RFX NEGATIVE (NEGATIVE); MUCUS, URINE RFX SMALL (NEGATIVE); RBC, URINE AUTO RFX 0 /HPF (0-3); SPECIFIC GRAVITY UR AUTO RFX 1.013 (1.002-1.035); SQUAM EPITHELIAL CELL UR AURFX 2 /HPF (0-6)
[2018-02-24 16:06] LABS: LEUKOCYTE ESTERASE UR AUTO RFX 1+ (NEGATIVE); NITRITE, URINE AUTO RFX POSITIVE (NEGATIVE); WBC, URINE AUTO RFX 15 /HPF (0-3)
[2018-02-24 16:12] LABS: ANION GAP 5 MEQ/L (8-16); BLOOD UREA NITROGEN 13 MG/DL (7-18); CALCIUM LEVEL 9.2 MG/DL (8.5-10.1); CARBON DIOXIDE LEVEL 32 MEQ/L (21-32); CHLORIDE LEVEL 102 MEQ/L (98-107); GLOMERULAR FILTRATION RATE > 60.0 (>51); GLUCOSE, FASTING 89 MG/DL (70-100); POTASSIUM SERUM 4.2 MEQ/L (3.5-5.1); SODIUM LEVEL 139 MEQ/L (136-145)
[2018-02-24] MEDS: NS 1,000 ML IV (17:18)
[2018-02-24] MEDS: MORPHINE 4 MG/ML 1ML VIAL/SYRINGE (J2270) IV ×2 (17:19→20:30)
[2018-02-24] MEDS: GASTROGRAFIN SOLUTION 30ML PO ×2 (17:30→18:11)
[2018-02-24 18:02] LABS: LACTIC ACID SEPSIS PROTOCOL 1.4 MMOL/L (0.4-2.0)
[2018-02-24] MEDS ORDERED: ISOVUE-370 76% 100ML VIAL (Q9967) As Ordered (18:47)
== END 2018-02-24 21:05 | disposition home or self-care (01) ==
LOC: M ED 14:07
DX: K59.00 Constipation, unspecified (principal); R10.32 Left lower quadrant pain; K43.9 Ventral hernia without obstruction or gangrene; N30.00 Acute cystitis without hematuria; E11.9 Type 2 diabetes mellitus without complications; R51 Headache; M54.9 Dorsalgia, unspecified; F41.9 Anxiety disorder, unspecified; F32.9 Major depressive disorder, single episode, unspecified; K21.9 Gastro-esophageal reflux disease without esophagitis; Z87.440 Personal history of urinary (tract) infections; Z87.01 Personal history of pneumonia (recurrent); Z98.84 Bariatric surgery status; Z79.899 Other long term (current) drug therapy; Z91.030 Bee allergy status; Z91.040 Latex allergy status; Z88.8 Allergy status to other drugs, medicaments and biological substances
CPT/HCPCS: J2270

== ENCOUNTER 2018-04-28 09:19 | Emergency (ER) | payer MEDICARE ==
[~2018-04-28] VITALS: Ht 149.9 cm; Wt 102.8 kg
[~2018-04-28 09:19] MED LIST changes: +BUPR10TASR PO; +CALC600T7 PO; +CIPR-249 PO; +CIPR500T3 PO; +CITA20TA4 PO; +COLA100C5 PO; +CYCL10TA PO; -E-Z-PAQUE 96% w/w SUSP 176GM BTL As Ordered; +ESTR0.5T3 PO; +FLAG500T PO; +FLUO20CA8 PO; +GABA-843 PO; +HYDR-3363 PO; +IBUP-1022 PO; +LAMI25TA PO; +LAMO5CHW4 PO; +LISI-542 PO; +MACR100C43 PO; +METF10004 PO; +PHEN15CA PO; +PRIL20CA9 PO; +PROT1TAB2 PO; +SIMV40TA2 PO; +TOPA1TAB PO; +TRAM50TA2 PO; +TRAZ-163 PO; +VICT18IN SC; +VIST50CA PO; +VITA500T53 PO; +ZOLM2.5T PO
[2018-04-28] MEDS ORDERED: MORPHINE 4 MG/ML 1ML VIAL/SYRINGE (J2270) IV ONE ×2 (09:45→11:45)
[2018-04-28] MEDS ORDERED: NS 500 ML IV ONE (09:45)
[2018-04-28 10:14] LABS: BASO % 0.4 % (0.0-1.0); EOS # 0.1 10^3/uL (0.0-0.50); EOS % 1.6 % (0.0-3.0); HEMATOCRIT 44.8 % (36.0-47.0); LYMPH # 1.7 10^3/uL (1.5-4.5); LYMPH % 33.1 % (24.0-44.0); MEAN CORPUSCULAR HEMOGLOBIN 30.5 pg (27.0-33.0); MEAN CORPUSCULAR HGB CONC 33.5 g/dl (32.0-36.5); MEAN CORPUSCULAR VOLUME 91.1 fl (80.0-96.0); MONO # 0.5 10^3/uL (0.0-0.8); MONO % 8.9 % (0.0-5.0); NEUTROPHILS # 2.8 10^3/uL (1.8-7.7); NEUTROPHILS % 55.8 % (36.0-66.0); PLATELET COUNT, AUTOMATED 167 10^3/uL (150-450); RED BLOOD COUNT 4.92 10^6/uL (4.00-5.40)
[2018-04-28 10:50] LABS: ALBUMIN 3.9 GM/DL (3.2-5.2); ALT/SGPT 30 U/L (12-78); BILIRUBIN,TOTAL 0.4 MG/DL (0.2-1.0); BLOOD UREA NITROGEN 17 MG/DL (7-18); C REACTIVE PROTEIN QUANTITATIV 0.38 MG/DL (0.00-0.30); CALCIUM LEVEL 9.1 MG/DL (8.5-10.1); CARBON DIOXIDE LEVEL 30 MEQ/L (21-32); CHLORIDE LEVEL 105 MEQ/L (98-107); CREATININE FOR GFR 0.61 MG/DL (0.55-1.30); GLOMERULAR FILTRATION RATE > 60.0 (>51); GLUCOSE, FASTING 104 MG/DL (70-100); POTASSIUM SERUM 4.1 MEQ/L (3.5-5.1); SODIUM LEVEL 140 MEQ/L (136-145); TOTAL PROTEIN 7.8 GM/DL (6.4-8.2)
[2018-04-28] MEDS ORDERED: ISOVUE-370 76% 100ML VIAL (Q9967) As Ordered ONE (11:11)
--- NOTE | 2018-04-28 12:08 | REP ---
CT ABDOMEN AND PELVIS WITH IV BUT WITHOUT ORAL CONTRAST: HISTORY: History of left lower quadrant hernia. Worsening pain. Nonreducible. COMPARISON STUDY: February 24, 2018 CT CONTRAST DOSE: 100 mL of intravenous Isovue 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 There is a colonic bowel loop lateral to the left flank stripe, consistent with a hernia. Axial CT images demonstrate that the lung bases are clear. There is mild diffuse fatty infiltration of the liver. No focal hepatic or splenic lesion is seen. There is pneumobilia noted, consistent with previous biliary tract surgery. The gallbladder is surgically absent. The biliary tract air is a new finding. Common bile duct and intrahepatic bile ducts do not appear to be dilated. No pancreatic lesion is appreciated. No adrenal lesion is observed. The patient is status post gastric bypass procedure. Kidneys enhance symmetrically and are morphologically intact. There is a broad area of calcification along the peritoneum in the left anterior abdomen. This is cephalic to a left lower quadrant hernia containing a loop of sigmoid colon. There is stool and gas within the herniated loop of sigmoid colon, and there is some streaky infiltration in the pericolonic fat within the hernia sac. No evidence of pneumatosis or peritoneal free air is seen. The pericolonic fat streaking is more prominent today. There is some air and stool distal to the herniation in the left colon. The colon proximal to the herniated segment is somewhat dilated and contains moderate amount of formed stool. No definite small bowel dilation is seen. No evidence of free air or abscess. IMPRESSION: Left lower quadrant hernia contains a loop of small intestine. There is formed stool and mild dilation of the proximal colon above this level. Mild edema of the pericolonic fat is seen, but there is no evidence of pneumatosis or definite mural thickening. Status post gastric bypass, cholecystectomy, and calcification in the left lower quadrant anterior abdominal wall suggestive of previous hernia repair. Postoperative pneumobilia is noted as an incidental finding along with fatty infiltration in the liver. Electronically Signed by Levy Maciel MD 04/28/2018 12:30 P
[2018-04-28] MEDS ORDERED: NORCOTAB PO (12:56)
[2018-04-28] MEDS ORDERED: MAGNESIUM CITRATE 300 ML BTL PO ONE (13:00)
[2018-04-28 13:23] VITALS: BP 126/73
--- NOTE | 2018-04-28 14:59 | ECGEPIP ---
Stationary ECG Study 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
== END 2018-04-28 13:24 | disposition home or self-care (01) ==
LOC: M ED 09:19
DX: K43.9 Ventral hernia without obstruction or gangrene (principal); I10 Essential (primary) hypertension; E78.00 Pure hypercholesterolemia, unspecified; F33.9 Major depressive disorder, recurrent, unspecified; F41.9 Anxiety disorder, unspecified; K21.9 Gastro-esophageal reflux disease without esophagitis; Z87.440 Personal history of urinary (tract) infections; Z98.84 Bariatric surgery status; Z88.8 Allergy status to other drugs, medicaments and biological substances; Z91.030 Bee allergy status; Z91.040 Latex allergy status
CPT/HCPCS: 36415; 74177; 80053; 81001; 83605; 85025; 86140; 93005; 96361; 96374; 96375; 99284; G0463; J2270; Q9967

== ENCOUNTER → 2018-09-17 | Outpatient (CLI) | payer MEDICARE ==
[~2018-09-17] MED LIST changes: -CITA20TA4 PO; +CITA20TA6 PO; +HYDR-3715 PO; +VITA500T17 PO; -VITA500T53 PO
[2018-09-17 10:34] LABS: HEMOGLOBIN A1c 5.6 %
[2018-09-17 10:44] LABS: FERRITIN 49 NG/ML (8-252); IRON (FE) 115 UG/DL (50-170)
[2018-09-17 10:51] LABS: VITAMIN B12 LEVEL > 2000 PG/ML (247-911)
== END ==
LOC: M LAB 09:20
PROVIDERS: ATTEND Student in an Organized Health Care Education/Training Program
DX: Z98.84 Bariatric surgery status (principal)

== ENCOUNTER → 2019-01-21 | Outpatient (CLI) | payer MEDICARE ==
[~2019-01-21] MED LIST changes: +PERI12LIQ; +PREG150C PO; +SAVE50TA PO
--- NOTE | 2019-01-21 15:01 | REPMRS ---
Patient History The patient states she has not had a clinical breast exam in over a year. Patient is postmenopausal. Family history of breast cancer at age 50 or over in paternal aunt. 3D TOMOSYNTHESIS WAS PERFORMED. [facility] lifetime risk for breast cancer is 9.2%. Digital Woman Screen Mammo: January 21, 2019 - Exam #: [id number] Bilateral CC and MLO view(s) were taken. Technologist: Parul Vines, Technologist Prior study comparison: March 15, 2015, digital woman screen mammo performed at [facility]. January 13, 2014, digital mammo diagnostic bilateral, performed at [facility]. FINDINGS: There are scattered fibroglandular densities. There has been no change in the appearance of the mammogram from the prior studies. There is a mild amount of residual fibroglandular tissue which is fairly symmetric. There is no interval development of dominant mass, architectural distortion, or clustered microcalcification suggestive of malignancy. Assessment: BI-RADS/ACR category 1 mammogram. Negative Mammogram. Recommendation Routine screening mammogram in 1 year (for women over age 40). This mammogram was interpreted with the aid of an FDA-approved computer-aided dectection system. Electronically Signed By: Adrián Morales MD 01/21/19 [id number]
== END ==
LOC: M WHC 12:41
PROVIDERS: ATTEND Student in an Organized Health Care Education/Training Program
DX: Z12.31 Encounter for screening mammogram for malignant neoplasm of breast (principal); Z78.0 Asymptomatic menopausal state

== ENCOUNTER 2019-01-29 01:35 | Emergency (ER) | payer MEDICARE ==
[~2019-01-29] VITALS: Ht 149.9 cm; Wt 96.8 kg
[~2019-01-29 01:35] MED LIST changes: -PERI12LIQ; -PREG150C PO; -SAVE50TA PO
[2019-01-29 02:20] LABS: HEMATOCRIT 43.5 % (36.0-47.0); HEMOGLOBIN 14.2 g/dl (12.0-15.5); MEAN CORPUSCULAR HGB CONC 32.6 g/dl (32.0-36.5); PLATELET COUNT, AUTOMATED 180 10^3/uL (150-450); RED BLOOD COUNT 4.58 10^6/uL (4.00-5.40); WHITE BLOOD COUNT 5.8 10^3/uL (4.0-10.0)
[2019-01-29 02:45] LABS: AMPHETAMINES LEVEL URINE NEGATIVE (NEGATIVE); BARBITURATES URINE NEGATIVE (NEGATIVE); BENZODIAZEPINES URINE NEGATIVE (NEGATIVE); CANNABINOIDS URINE NEGATIVE (NEGATIVE); COCAINE METABOLITE URINE NEGATIVE (NEGATIVE); METHADONE URINE NEGATIVE (NEGATIVE); OPIATES URINE NEGATIVE (NEGATIVE); PHENCYCLIDINE URINE NEGATIVE (NEGATIVE)
[2019-01-29 03:07] LABS: ACETAMINOPHEN LEVEL < 2.0 UG/ML (10.0-30.0); ALBUMIN 3.8 GM/DL (3.2-5.2); ALT/SGPT 36 U/L (12-78); BILIRUBIN,DIRECT 0.1 MG/DL (0.0-0.2); BILIRUBIN,TOTAL 0.3 MG/DL (0.2-1.0); BLOOD UREA NITROGEN 12 MG/DL (7-18); CALCIUM LEVEL 8.6 MG/DL (8.5-10.1); CARBON DIOXIDE LEVEL 33 MEQ/L (21-32); CHLORIDE LEVEL 105 MEQ/L (98-107); CREATININE FOR GFR 0.68 MG/DL (0.55-1.30); ETHYL ALCOHOL (ETHANOL) < 0.003 % (0.000-0.010); GLOMERULAR FILTRATION RATE > 60.0 (>51); GLUCOSE, FASTING 94 MG/DL (70-100); POTASSIUM SERUM 4.2 MEQ/L (3.5-5.1); SALICYLATE LEVEL < 1.7 MG/DL (5.0-30.0); SODIUM LEVEL 142 MEQ/L (136-145); TOTAL PROTEIN 7.5 GM/DL (6.4-8.2)
--- NOTE | 2019-01-29 08:53 | ECGEPIP ---
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
[2019-01-29] MEDS ORDERED: PERI12LIQ (09:18)
[2019-01-29] MEDS ORDERED: SAVE50TA PO (09:18)
[2019-01-29] MEDS ORDERED: PREG150C PO (09:18)
[2019-01-29] MEDS ORDERED: PREGABALIN 75 MG CAP(LYRICA) PO ONE (10:45)
[2019-01-29 20:09] LABS: APPEARANCE, URINE CLOUDY (CLEAR); BACTERIA, URINE AUTO 2+ (NEGATIVE); BILIRUBIN, URINE AUTO NEGATIVE (NEGATIVE); BLOOD, URINE BLOOD NEGATIVE (NEGATIVE); COLOR, URINE YELLOW (YELLOW); GLUCOSE, URINE (UA) AUTO NEGATIVE (NEGATIVE); KETONE, URINE AUTO NEGATIVE (NEGATIVE); LEUKOCYTE ESTERASE, URINE AUTO NEGATIVE (NEGATIVE); MUCUS, URINE SMALL (NEGATIVE); NITRITE, URINE AUTO POSITIVE (NEGATIVE); PROTEIN, URINE AUTO NEGATIVE (NEGATIVE); RBC, URINE AUTO 1 /HPF (0-3); SPECIFIC GRAVITY URINE AUTO 1.018 (1.002-1.035); SQUAMOUS EPITHELIAL CELL UR AU 1 /HPF (0-6); UROBILINOGEN, URINE AUTO 0.2 mg/dL (0.0-2.0); WBC, URINE AUTO 2 /HPF (0-3)
[2019-01-29] MEDS ORDERED: CYCLOBENZAPRINE 10 MG TAB PO ONE (23:00)
[2019-01-29 23:17] VITALS: BP 122/79
== END 2019-01-29 23:59 ==
LOC: M ED 01:35
DX: F32.9 Major depressive disorder, single episode, unspecified (principal); R45.851 Suicidal ideations; F41.9 Anxiety disorder, unspecified; E11.9 Type 2 diabetes mellitus without complications; Z88.8 Allergy status to other drugs, medicaments and biological substances; Z91.030 Bee allergy status; Z91.040 Latex allergy status; Z79.899 Other long term (current) drug therapy
CPT/HCPCS: 36415; 80048; 80076; 80307; 81001; 84443; 85027; 93005; 99284; G0480

== ENCOUNTER 2019-05-20 22:42 | Emergency (ER) | payer MEDICARE ==
[~2019-05-20] VITALS: Ht 149.9 cm; Wt 104.5 kg
[~2019-05-20 22:42] MED LIST changes: +FLUO20CA20 PO; -FLUO20CA8 PO; +PERI12LIQ; +PREG150C PO; +SAVE50TA PO; -SIMV40TA2 PO; +SIMV40TA20 PO; -TRAZ-163 PO; +TRAZ-257 PO; -ZOLM2.5T PO; +ZOLM2.5T20 PO
[2019-05-20 23:05] LABS: BASO # 0.1 10^3/uL (0.0-0.2); EOS # 0.1 10^3/uL (0.0-0.5); HEMATOCRIT 42.2 % (36.0-47.0); HEMOGLOBIN 13.4 g/dl (12.0-15.5); LYMPH # 2.2 10^3/uL (1.5-5.0); MEAN CORPUSCULAR HEMOGLOBIN 29.8 pg (27.0-33.0); MEAN CORPUSCULAR HGB CONC 31.8 g/dl (32.0-36.5); MEAN CORPUSCULAR VOLUME 93.8 fl (80.0-96.0); MONO # 0.5 10^3/uL (0.0-0.8); MONO % 8.8 % (0.0-5.0); NEUTROPHILS # 2.4 10^3/uL (1.5-8.5); NEUTROPHILS % 45.8 % (36.0-66.0); PLATELET COUNT, AUTOMATED 170 10^3/uL (150-450); WHITE BLOOD COUNT 5.1 10^3/uL (4.0-10.0)
[2019-05-20] MEDS ORDERED: ZOLP10TA2 (23:05)
[2019-05-20 23:20] LABS: INR 1.07; PROTHROMBIN TIME 13.6 SECONDS (11.8-14.0)
[2019-05-20 23:34] LABS: BLOOD UREA NITROGEN 13 MG/DL (7-18); CALCIUM LEVEL 8.9 MG/DL (8.5-10.1); CARBON DIOXIDE LEVEL 31 MEQ/L (21-32); CHLORIDE LEVEL 102 MEQ/L (98-107); CK-MB VALUE MASS < 1.0 NG/ML (<3.6); CPK CREATINE PHOSPHOKINASE 142 U/L (26-192); CREATININE FOR GFR 0.79 MG/DL (0.55-1.30); GLOMERULAR FILTRATION RATE > 60.0 (>51); GLUCOSE, FASTING 98 MG/DL (70-100); POTASSIUM SERUM 3.8 MEQ/L (3.5-5.1); SODIUM LEVEL 139 MEQ/L (136-145); TROPONIN I < 0.02 NG/ML (< 0.10)
[2019-05-20] MEDS ORDERED: KETOROLAC 30 MG/ML VIAL (J1885) IV ONE (23:45)
[2019-05-21 00:44] LABS: D-DIMER QUANT 388.86 ng/ml (<500)
[2019-05-21] MEDS ORDERED: GI COCKTAIL 50ML BTL(HYOSCYAMINE/MAALOX/LIDOCAINE VISCOUS)(1:3:1) PO ONE (01:30)
[2019-05-21] MEDS ORDERED: fentaNYL 100 MCG/2 ML INJECTION (J3010) IV ONE (03:45)
[2019-05-21 05:43] LABS: CK-MB VALUE MASS < 1.0 NG/ML (<3.6); CPK CREATINE PHOSPHOKINASE 129 U/L (26-192); MB/CK RELATIVE INDEX 0.78 (< OR =4); TROPONIN I < 0.02 NG/ML (< 0.10)
[2019-05-21] MEDS ORDERED: PRED20TA PO (06:19)
[2019-05-21 06:30] VITALS: BP 112/58
--- NOTE | 2019-05-21 10:04 | ECGEPIP ---
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
--- NOTE | 2019-05-21 10:07 | ECGEPIP ---
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
--- NOTE | 2019-05-21 10:51 | REP ---
Portable chest x-ray: Single view. History: Chest pain. Comparison chest x-ray: May 08, 2016. Findings: Monitoring electrodes overlie the chest. Heart is not enlarged. Pulmonary vasculature is not increased. No significant bony abnormality is seen. Impression: No acute disease. Electronically Signed by Levy Maciel MD 05/21/2019 08:05 A
== END 2019-05-21 06:39 | disposition home or self-care (01) ==
LOC: M ED 22:42
DX: R07.9 Chest pain, unspecified (principal); M79.7 Fibromyalgia; M54.9 Dorsalgia, unspecified; Z88.8 Allergy status to other drugs, medicaments and biological substances; Z91.030 Bee allergy status; Z91.040 Latex allergy status
CPT/HCPCS: 71045; 80048; 82550; 82553; 84484; 85025; 85379; 85610; 85730; 93005; 93041; 94760; 96374; 96375; 99285; J1885; J3010

== ENCOUNTER 2019-12-05 17:50 | Emergency (ER) | payer MEDICARE ==
[~2019-12-05 17:50] MED LIST changes: +CALC-212 PO; -CALC600T7 PO; +CYCL-707 PO; -CYCL10TA PO; +PRED20TA PO; +ZOLP10TA2
[2019-12-05] MEDS ORDERED: ACETAMINOPHEN 500 MG TAB As Ordered ONE (19:45)
[2019-12-05] MEDS ORDERED: ACETAMINOPHEN 500 MG TAB ONE (19:45)
== END 2019-12-05 20:35 | disposition home or self-care (01) ==
LOC: M ED 17:50
DX: S92.352A Displaced fracture of fifth metatarsal bone, left foot, initial encounter for closed fracture (principal); W10.9XXA Fall (on) (from) unspecified stairs and steps, initial encounter; Y92.018 Other place in single-family (private) house as the place of occurrence of the external cause; F99 Mental disorder, not otherwise specified; Z98.84 Bariatric surgery status; Z79.899 Other long term (current) drug therapy; Z88.8 Allergy status to other drugs, medicaments and biological substances

== ENCOUNTER 2020-03-22 16:01 | Emergency (ER) | payer MEDICARE ==
[~2020-03-22] VITALS: Ht 149.9 cm; Wt 143.4 kg
[2020-03-22] MEDS ORDERED: MIRT1TAB PO (16:41)
[2020-03-22] MEDS ORDERED: QUET100T2 PO (16:41)
[2020-03-22] MEDS ORDERED: FLUO40CA PO (16:41)
[2020-03-22] MEDS ORDERED: KETOROLAC 60MG 2ML VIAL IM ONE (17:00)
[2020-03-22] MEDS ORDERED: ACETAMINOPHEN 500 MG TAB PO ONE (17:00)
--- NOTE | 2020-03-22 17:13 | REP ---
INDICATION: trauma COMPARISON: None. TECHNIQUE: Four views left wrist. FINDINGS: There may be a cortical buckle fracture of the distal radius laterally. There is narrowing of the distal radioulnar joint. Otherwise no fracture or dislocation is seen. IMPRESSION: Possible cortical buckle fracture distal radius. <Electronically signed by Adrián Morales > 03/22/20 [id number]
--- NOTE | 2020-03-22 17:16 | REP ---
INDICATION: trauma COMPARISON: None. TECHNIQUE: Four views left hand. FINDINGS: There is a possible cortical buckle fracture of the distal radius laterally. No other acute fracture or dislocation is seen. There is mild arthritic change at the joint between the trapezium and base of 1st metacarpal. There is mild arthritic changes at the joints of the 1st digit as well as the proximal and distal interphalangeal joints of the remaining digits. IMPRESSION: Possible cortical buckle fracture of distal radius. No other evidence of acute fracture or dislocation. Mild arthritic changes. <Electronically signed by Adrián Morales > 03/22/20 [id number]
[2020-03-22 17:39] VITALS: BP 171/81
== END 2020-03-22 17:45 | disposition home or self-care (01) ==
LOC: M ED 16:01
DX: S52.522A Torus fracture of lower end of left radius, initial encounter for closed fracture (principal); W01.0XXA Fall on same level from slipping, tripping and stumbling without subsequent striking against object, initial encounter; Y92.018 Other place in single-family (private) house as the place of occurrence of the external cause; M79.7 Fibromyalgia; Z98.84 Bariatric surgery status; Z79.899 Other long term (current) drug therapy; Z88.8 Allergy status to other drugs, medicaments and biological substances; Z91.030 Bee allergy status; Z91.040 Latex allergy status
CPT/HCPCS: 73110; 73130; 96372; 99284; J1885

== ENCOUNTER 2020-06-12 08:54 | Inpatient (IN) | payer MEDICARE ==
[~2020-06-12] VITALS: Ht 149.9 cm; Wt 140.5 kg
[~2020-06-12 08:54] MED LIST changes: +FLUO40CA PO; +GABA-282 PO; -GABA-843 PO; -LISI-542 PO; +LISI-898 PO; +MIRT1TAB PO; +QUET100T2 PO
--- NOTE | 2020-06-12 09:37 | REP ---
INDICATION: Coronavirus workup COMPARISON: 05/20/2019 TECHNIQUE: Portable AP view of the chest FINDINGS: Lung landa demonstrate moderate to significant diffuse airspace disease consistent with COVID-19 pulmonary disease. No effusion. No pneumothorax. Mediastinum and cardiac silhouette stable. IMPRESSION: New diffuse airspace disease consistent with COVID-19 pulmonary disease. <Electronically signed by Polo Abad > 06/12/20 [id number]
[2020-06-12 10:15] LABS: BASO % 0.5 % (0.0-1.0); EOS % 0.4 % (0.0-3.0); HEMATOCRIT 40.4 % (36.0-47.0); HEMOGLOBIN 12.8 g/dl (12.0-15.5); LYMPH # 0.8 10^3/uL (1.5-5.0); LYMPH % 9.3 % (24.0-44.0); MEAN CORPUSCULAR HEMOGLOBIN 28.5 pg (27.0-33.0); MEAN CORPUSCULAR HGB CONC 31.7 g/dl (32.0-36.5); MONO # 0.4 10^3/uL (0.0-0.8); MONO % 5.3 % (0.0-5.0); NEUTROPHILS # 6.9 10^3/uL (1.5-8.5); NEUTROPHILS % 83.8 % (36.0-66.0); PLATELET COUNT, AUTOMATED 134 10^3/uL (150-450); RED BLOOD COUNT 4.49 10^6/uL (4.00-5.40); WHITE BLOOD COUNT 8.2 10^3/uL (4.0-10.0)
[2020-06-12] MEDS ORDERED: CYCL-707 PO (10:37)
[2020-06-12] MEDS ORDERED: MIRT-62 PO (10:37)
[2020-06-12 11:02] LABS: ALBUMIN 2.9 GM/DL (3.2-5.2); ALT/SGPT 27 U/L (12-78); BILIRUBIN,TOTAL 0.6 MG/DL (0.2-1.0); BLOOD UREA NITROGEN 15 MG/DL (7-18); CALCIUM LEVEL 8.4 MG/DL (8.5-10.1); CARBON DIOXIDE LEVEL 26 MEQ/L (21-32); CHLORIDE LEVEL 105 MEQ/L (98-107); CK-MB VALUE MASS < 1.0 NG/ML (<3.6); CPK CREATINE PHOSPHOKINASE 64 U/L (26-192); CREATININE FOR GFR 0.72 MG/DL (0.55-1.30); FERRITIN 59 NG/ML (8-252); GLOMERULAR FILTRATION RATE > 60.0 (>51); GLUCOSE, FASTING 133 MG/DL (70-100); LDH LACTATE DEHYDROGENASE 272 U/L (84-246); MB/CK RELATIVE INDEX 1.56 (< OR =4); POTASSIUM SERUM 3.6 MEQ/L (3.5-5.1); SODIUM LEVEL 137 MEQ/L (136-145); TOTAL PROTEIN 7.7 GM/DL (6.4-8.2); TROPONIN I < 0.02 NG/ML (< 0.10)
[2020-06-12] MEDS ORDERED: ISOVUE-370 76% 100ML VIAL As Ordered ONE (11:36)
--- NOTE | 2020-06-12 12:53 | REP ---
INDICATION: hypoxia, elevated D dimer, r/o PE. COMPARISON: None. TECHNIQUE: Contrast dose: 75 ML of Isovue [address] technique: Helical scanning is acquired and overlapping 1.5 mm and contiguous 3 mm axial images are reformatted. In addition, maximum intensity projection and multiplanar re-formation images are generated in sagittal and coronal imaging projections. FINDINGS: There is good opacification in the pulmonary arterial tree. There is no evidence of vessel cut off or filling defect to suggest pulmonary embolus. Homogeneous opacity is seen in the thoracic aorta. There is no evidence of aneurysm or dissection. Lung window settings demonstrate extensive patchy ground-glass opacity and more confluent zones of consolidation in the upper and lower lobes bilaterally consistent with extensive pneumonia bilaterally. Changes consistent with COVID pneumonitis are seen. No endobronchial disease is seen. No pleural or pericardial effusion is apparent. Cardiomegaly is observed. In the upper abdomen, normal adrenal glands are observed. The visualized upper abdominal structures are otherwise unremarkable. IMPRESSION: Extensive patchy bilateral upper and lower lobe pneumonia. No CT evidence of pulmonary embolus.. Commonly reported imaging features of COVID 19 pneumonia are present. Other processes such as influenza pneumonia, drug toxicity, and connective tissue disease can produce a similar pattern. <Electronically signed by Dinesh Maciel > 06/12/20 [id number]
[2020-06-12] MEDS ORDERED: CYCLOBENZAPRINE 10MG TABLET PO PRN (13:45)
--- NOTE | 2020-06-12 14:15 | HPEPDOC ---
General Date of Admission 06/12/20 Date of Service: Jun 12, 2020 Chief Complaint The patient is a 59-year-old female admitted with a reason for visit of Short Of Breath / Chest Pain. Source: Patient Exam Limitations: No limitations Timing/Duration: Day(s) Severity: Moderate History of Present Illness Patient is 59 years old female with a past history of depression, morbid obesity, bypass surgery presented to the hospital with increased shortness of breath and cough. Patient stated that for past few days she has been having increased shortness of breath associated with dry cough. In ER patient was found to have no leukocytosis, elevated d-dimer of 1605, CTA showed Extensive patchy bilateral upper and lower lobe pneumonia. No CT evidence of pulmonary embolus.. Commonly reported imaging features of COVID 19 pneumonia are present. Covid 19 test negative Home Medications Scheduled Cyclobenzaprine HCl (Cyclobenzaprine HCl) 10 Mg Tab, 10 MG PO QHS, (Reported) Fluoxetine Hcl (Fluoxetine HCl) 40 Mg Capsule, 80 MG PO DAILY, (Reported) Mirtazapine (Remeron) 15 Mg Tablet, 15 MG PO QHS, (Reported) Pregabalin (Pregabalin) 150 Mg Capsule, 150 MG PO BID, (Reported) Scheduled PRN Cyclobenzaprine HCl (Cyclobenzaprine HCl) 10 Mg Tablet, 10 MG PO BID PRN for MUSCLE SPASMS, (Reported) Allergies Coded Allergies: bee venom protein (honey bee) (Verified Allergy, Severe, anaphylaxis, 03/22/20) trazodone (Verified Allergy, Severe, can't breathe, 03/22/20) latex (Verified Allergy, Mild, rash, 03/22/20) metronidazole (Verified Allergy, Mild, rash, 03/22/20) Past Medical History Medical History HYPERCHOLESTEROLEMIA DEPRESSION CHRONIC BACK FRACTURE OF L2/3. MYOFACIAL PAIN SYNDROME CERVICALGIA PODIATRY - HEEL SPUR SYNDROME + PLANTAR FASCITIS 01/2014 STRESS TEST 2014 MIHAI LEVIN STATUS POST GASTRIC BYPASS Surgical History HYSTERECTOMY (TOTAL) 2000 GALLBLADDER 1996 LEFT INGUINAL HERNIA REPAIR REPAIR ABNOMRALITY RIGHT FOOT 2002 COLONOSCOPY/ENDOSCOPY 01/2014 BIOPSY-RT FOOT 05/26/[address] DANIELS ABDOMINAL FAT REMOVED 04/30/2019 Family History FATHER: , HEART ATTACK, DIAGNOSED WITH DIABETES MOTHER: , HEART ATTACK UNDER 55. SIBLINGS: ALIVE DAUGHTER(S): ALIVE 3 BROTHER(S) , 1 SISTER(S) . 2DAUGHTER(S) - HEALTHY. IN [place]. AUNT-BREAST CANCER. Social History * Smoker: Denies Alcohol: Denies Drugs: denies A-FIB/CHADSVASC A-FIB History Current/History of A-Fib/PAF?: No Current PO Anticoag Therapy: No Review of Systems Constitutional: Denies: Chills Eyes: Denies: Pain, Vision change ENT: Denies: Head Aches Skin: Denies: Rash, Lesions Pulmonary: Reports: Dyspnea, Cough Cardiovascular: Denies: Chest Pain, Palpitations Gastrointestinal: Denies: Nausea Genitourinary: Denies: Dysuria Hematologic: Denies: Bruising Endocrine: Denies: Polydipsia Musculoskeletal: Denies: Neck Pain, Back Pain Neurological: Denies: Weakness Psych: Reports: Mood Normal Physical Examination General Exam: Positive: Alert, Cooperative Eye Exam: Positive: PERRLA ENT Exam: Positive: Pinna Normal Neck Exam: Positive: Supple; Negative: JVD Chest Exam: Positive: Diminished Heart Exam: Positive: Rate Normal Telemetry: Positive: No significant arrhythmia Abdomen Exam: Positive: Normal bowel sounds Extremity Exam: Negative: Clubbing, Cyanosis Skin Exam: Positive: Nl turgor and temperature Neuro Exam: Positive: Normal Gait Psych Exam: Positive: Mental status NL Vital Signs Vital Signs Date Time Temp Pulse Resp B/P (MAP) Pulse Ox O2 Delivery O2 Flow Rate FiO2 06/12/20 11:26 87 25 93 Nasal Cannula 2.0 06/12/20 11:16 140/63 (88) 06/12/20 10:23 86 06/12/20 08:55 97.8 Laboratory Data Labs 24H Laboratory Tests 2 06/12/20 09:44: POC pH (Misc Panel) 7.415, POC Base Excess (Misc Panel) 0.0, POC Saturated Percent O2 (Misc) 95, POC pO2 (Misc Panel) 77.0L, POC pCO2 (Misc Panel) 38.8, POC HCO3 (Misc Panel) 24.9, POC Total CO2 (Misc Panel) 26.0 06/12/20 09:54: Immature Granulocyte % (Auto) 0.7, Neutrophils (%) (Auto) 83.8H, Lymphocytes (%) (Auto) 9.3L, Monocytes (%) (Auto) 5.3H, Eosinophils (%) (Auto) 0.4, Basophils (%) (Auto) 0.5, Neutrophils # (Auto) 6.9, Lymphocytes # (Auto) 0.8L, Monocytes # (Auto) 0.4, Eosinophils # (Auto) 0.0, Basophils # (Auto) 0.0, Nucleated Red Blood Cells % (auto) 0.0, D-Dimer, Quantitative 1605.53H, Anion Gap 6L, Glomerular Filtration Rate > 60.0, Lactic Acid Level 1.6, Calcium Level 8.4L, Ferritin 59, Total Bilirubin 0.6, Aspartate Amino Transf (AST/SGOT) 27, Alanine Aminotransferase (ALT/SGPT) 27, Alkaline Phosphatase 92, Lactate Dehydrogenase 272H, Total Creatine Kinase 64, Creatine Kinase MB < 1.0, Creatine Kinase MB Relative Index 1.56, Troponin I < 0.02, C-Reactive Protein, Quantitative 16.90H, Total Protein 7.7, Albumin 2.9L, Albumin/Globulin Ratio 0.6L CBC/BMP Laboratory Tests 06/12/20 09:54 Microbiology Microbiology 06/12/20 Blood Culture, Received Pending 06/12/20 Blood Culture, Received Pending 06/12/20 Respiratory Virus Panel (PCR) (ANDRES) - Final, Complete Assessment/Plan Patient is 59 years old female with a past history of depression, morbid obesity, bypass surgery presented to the hospital with increased shortness of breath and cough. Patient stated that for past few days she has been having increased shortness of breath associated with dry cough. In ER patient was found to have no leukocytosis, elevated d-dimer of 1605, CTA showed Extensive patchy bilateral upper and lower lobe pneumonia. No CT evidence of pulmonary embolus.. Commonly reported imaging features of COVID 19 pneumonia are present. Covid 19 test negative Problems (1) Bilateral pneumonia Status: Acute Problem Text: CT showed bilateral pulmonary Ceftriaxone IV, azithromycin IV Incentive spirometry Prednisone 40 mg by mouth Inhalers (2) Depression Status: Chronic Problem Text: Continue home medications (3) Morbid obesity Status: Acute Problem Text: BMI 62 Complicated care Plan / VTE VTE Prophylaxis Ordered?: Yes MARIJA BARKSDALE DO Jun 12, 2020 14:15
[2020-06-12] MEDS: FLUoxetine 20 MG CAP PO SCH (14:20)
[2020-06-12] MEDS: cefTRIAXone SOD 1 GM in D5W MINI-BAG PLUS 50 ML IV SCH (14:20)
[2020-06-12] MEDS: predniSONE 20 MG TAB PO SCH (14:23)
[2020-06-12 16:00] VITALS: BP 146/87
[2020-06-12] MEDS: AZITHROMYCIN INJ 500 MG, VIAL MATE ADAPTER 1 EACH in D5W 250 ML IV SCH (16:46)
--- NOTE | 2020-06-12 20:10 | ECGEPIP ---
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
[2020-06-12] MEDS: MIRTAZAPINE 15 MG TAB PO SCH (20:41)
[2020-06-12] MEDS: CYCLOBENZAPRINE 10MG TABLET PO SCH (20:41)
[2020-06-12 22:00] VITALS: BP 144/85
[2020-06-13 05:49] LABS: HEMATOCRIT 40.3 % (36.0-47.0); HEMOGLOBIN 12.5 g/dl (12.0-15.5); MEAN CORPUSCULAR HEMOGLOBIN 28.1 pg (27.0-33.0); MEAN CORPUSCULAR VOLUME 90.6 fl (80.0-96.0); PLATELET COUNT, AUTOMATED 161 10^3/uL (150-450); RED BLOOD COUNT 4.45 10^6/uL (4.00-5.40); WHITE BLOOD COUNT 6.4 10^3/uL (4.0-10.0)
[2020-06-13 06:00] VITALS: BP 119/70
[2020-06-13 06:09] LABS: ALBUMIN 2.6 GM/DL (3.2-5.2); ALT/SGPT 22 U/L (12-78); BILIRUBIN,TOTAL 0.4 MG/DL (0.2-1.0); BLOOD UREA NITROGEN 14 MG/DL (7-18); CALCIUM LEVEL 8.2 MG/DL (8.5-10.1); CARBON DIOXIDE LEVEL 27 MEQ/L (21-32); CHLORIDE LEVEL 109 MEQ/L (98-107); CREATININE FOR GFR 0.62 MG/DL (0.55-1.30); GLOMERULAR FILTRATION RATE > 60.0 (>51); GLUCOSE, FASTING 106 MG/DL (70-100); POTASSIUM SERUM 3.6 MEQ/L (3.5-5.1); SODIUM LEVEL 143 MEQ/L (136-145); TOTAL PROTEIN 7.5 GM/DL (6.4-8.2)
[2020-06-13] MEDS: predniSONE 20 MG TAB PO SCH (08:52)
[2020-06-13] MEDS: FLUoxetine 20 MG CAP PO SCH (08:52)
[2020-06-13] MEDS: ENOXAPARIN 40MG/0.4ML SYRINGE (J1650 PER 10MG) SC SCH (08:53)
[2020-06-13] MEDS: ACETAMINOPHEN TAB 650MG DOSE (2X325MG) PO PRN ×2 (09:00→20:39)
--- NOTE | 2020-06-13 11:43 | IPNPDOC ---
Text Note Date of Service The patient was seen on 06/13/20. NOTE Subjective: Patient stated that she feels better today, but continues to have increased shortness of breath on exertion Objective: GENERAL APPEARANCE: Morbidly obese female HEENT: no scleral icterus, no JVD, EOMI CARDIOVASCULAR: S1S2 LUNGS: Diminished lung sounds bilaterally ABDOMEN: soft & not tender w palpitation MUSCULOSKELETAL: no cyanosis, no swelling INTEGUMENT: no generalized pallor NEUROLOGICAL: cranial nerve function from 2-12 intact intact, follows commands, speech not dysarthric Assessment/Plan Patient is 59 years old female with a past history of depression, morbid obesity, bypass surgery presented to the hospital with increased shortness of breath and cough. Patient stated that for past few days she has been having increased shortness of breath associated with dry cough. In ER patient was found to have no leukocytosis, elevated d-dimer of 1605, CTA showed Extensive patchy bilateral upper and lower lobe pneumonia. No CT evidence of pulmonary embolus.. Commonly reported imaging features of COVID 19 pneumonia are present. Covid 19 test negative Problems (1) Bilateral pneumonia CT showed bilateral pulmonary Ceftriaxone IV, azithromycin IV Incentive spirometry Prednisone 40 mg by mouth Inhalers (2) Depression Continue home medications (3) Morbid obesity BMI 62 Complicated care VS,Fishbone, I+O VS, Fishbone, I+O Laboratory Tests 06/13/20 05:32 Vital Signs Date Time Temp Pulse Resp B/P (MAP) Pulse Ox O2 Delivery O2 Flow Rate FiO2 06/13/20 09:09 3.0 06/13/20 06:00 96.5 79 18 119/70 (86) 93 Nasal Cannula 06/12/20 10:23 86 I&O- Last 24 Hours up to 6 AM 06/13/20 06:00 Intake Total 855 ml Output Total 500 ml Balance 355 ml MARIJA BARKSDALE DO Jun 13, 2020 11:43
[2020-06-13] MEDS ORDERED: IPRATROPIUM 0.5MG/ALBUTEROL 2.5MG INH SOL UD 3ML (DUONEB) NEB PRN (11:45)
[2020-06-13 14:00] VITALS: BP 118/69
[2020-06-13] MEDS: cefTRIAXone SOD 1 GM in D5W MINI-BAG PLUS 50 ML IV SCH (16:02)
[2020-06-13] MEDS: AZITHROMYCIN INJ 500 MG, VIAL MATE ADAPTER 1 EACH in D5W 250 ML IV SCH (16:22)
[2020-06-13] MEDS: ALBUTEROL 90 MCG/ACT 8GM HFA INHALER INH PRN (16:29)
[2020-06-13] MEDS: MIRTAZAPINE 15 MG TAB PO SCH (20:36)
[2020-06-13] MEDS: CYCLOBENZAPRINE 10MG TABLET PO SCH (20:37)
[2020-06-13] MEDS: PREGABALIN 75 MG CAP(LYRICA) PO SCH (20:37)
[2020-06-13 22:00] VITALS: BP 118/68
[2020-06-14 06:00] VITALS: BP 119/70
[2020-06-14 07:09] LABS: BASO % 0.6 % (0.0-1.0); EOS % 0.4 % (0.0-3.0); HEMATOCRIT 42.3 % (36.0-47.0); HEMOGLOBIN 12.9 g/dl (12.0-15.5); LYMPH # 1.7 10^3/uL (1.5-5.0); LYMPH % 31.9 % (24.0-44.0); MEAN CORPUSCULAR HEMOGLOBIN 27.9 pg (27.0-33.0); MEAN CORPUSCULAR HGB CONC 30.5 g/dl (32.0-36.5); MEAN CORPUSCULAR VOLUME 91.6 fl (80.0-96.0); MONO # 0.3 10^3/uL (0.0-0.8); MONO % 6.2 % (0.0-5.0); NEUTROPHILS # 3.2 10^3/uL (1.5-8.5); NEUTROPHILS % 60.3 % (36.0-66.0); PLATELET COUNT, AUTOMATED 192 10^3/uL (150-450); RED BLOOD COUNT 4.62 10^6/uL (4.00-5.40); WHITE BLOOD COUNT 5.3 10^3/uL (4.0-10.0)
[2020-06-14 07:29] LABS: ALBUMIN 2.7 GM/DL (3.2-5.2); ALT/SGPT 19 U/L (12-78); BILIRUBIN,TOTAL 0.4 MG/DL (0.2-1.0); BLOOD UREA NITROGEN 23 MG/DL (7-18); CALCIUM LEVEL 8.4 MG/DL (8.5-10.1); CARBON DIOXIDE LEVEL 27 MEQ/L (21-32); CHLORIDE LEVEL 109 MEQ/L (98-107); CREATININE FOR GFR 0.62 MG/DL (0.55-1.30); GLOMERULAR FILTRATION RATE > 60.0 (>51); GLUCOSE, FASTING 90 MG/DL (70-100); MAGNESIUM LEVEL 2.1 MG/DL (1.8-2.4); POTASSIUM SERUM 3.5 MEQ/L (3.5-5.1); SODIUM LEVEL 144 MEQ/L (136-145); TOTAL PROTEIN 7.4 GM/DL (6.4-8.2)
[2020-06-14] MEDS: FLUoxetine 20 MG CAP PO SCH (08:46)
[2020-06-14] MEDS: predniSONE 20 MG TAB PO SCH (08:46)
[2020-06-14] MEDS: ENOXAPARIN 40MG/0.4ML SYRINGE (J1650 PER 10MG) SC SCH (08:47)
[2020-06-14] MEDS: PREGABALIN 75 MG CAP(LYRICA) PO SCH ×2 (08:47→21:25)
--- NOTE | 2020-06-14 10:24 | IPNPDOC ---
Text Note Date of Service The patient was seen on 06/14/20. NOTE Subjective: Patient is doing better today, titrated down her oxygen and satur ation was 94% on the room air Objective: GENERAL APPEARANCE: Morbidly obese female HEENT: no scleral icterus, no JVD, EOMI CARDIOVASCULAR: S1S2 LUNGS: Diminished lung sounds bilaterally ABDOMEN: soft & not tender w palpitation MUSCULOSKELETAL: no cyanosis, no swelling INTEGUMENT: no generalized pallor NEUROLOGICAL: cranial nerve function from 2-12 intact intact, follows commands, speech not dysarthric Assessment/Plan Patient is 59 years old female with a past history of depression, morbid obesity, bypass surgery presented to the hospital with increased shortness of breath and cough. Patient stated that for past few days she has been having increased shortness of breath associated with dry cough. In ER patient was found to have no leukocytosis, elevated d-dimer of 1605, CTA showed Extensive patchy bilateral upper and lower lobe pneumonia. No CT evidence of pulmonary embolus.. Commonly reported imaging features of COVID 19 pneumonia are present. Covid 19 test negative Problems (1) Bilateral pneumonia CT showed bilateral pulmonary Ceftriaxone IV, azithromycin IV Incentive spirometry Prednisone 40 mg by mouth Inhalers (2) Depression Continue home medications (3) Morbid obesity BMI 62 Complicated care VS,Fishbone, I+O VS, Fishbone, I+O Laboratory Tests 06/14/20 06:27 Vital Signs Date Time Temp Pulse Resp B/P (MAP) Pulse Ox O2 Delivery O2 Flow Rate FiO2 06/14/20 06:00 96.7 74 18 119/70 (86) 95 Nasal Cannula 3.0 06/12/20 10:23 86 I&O- Last 24 Hours up to 6 AM 06/14/20 06:00 Intake Total 1205 ml Output Total 0 ml Balance 1205 ml MARIJA BARKSDALE DO Jun 14, 2020 10:24
[2020-06-14] MEDS: ALBUTEROL 90 MCG/ACT 8GM HFA INHALER INH PRN ×2 (13:44→21:40)
[2020-06-14] MEDS: cefTRIAXone SOD 1 GM in D5W MINI-BAG PLUS 50 ML IV SCH (14:13)
[2020-06-14 14:48] VITALS: BP 126/73
[2020-06-14] MEDS: AZITHROMYCIN INJ 500 MG, VIAL MATE ADAPTER 1 EACH in D5W 250 ML IV SCH (15:22)
[2020-06-14] MEDS: CYCLOBENZAPRINE 10MG TABLET PO SCH (21:25)
[2020-06-14] MEDS: MIRTAZAPINE 15 MG TAB PO SCH (21:25)
[2020-06-14 22:00] VITALS: BP 116/69
[2020-06-15] MEDS: ACETAMINOPHEN TAB 650MG DOSE (2X325MG) PO PRN (03:47)
[2020-06-15 06:00] VITALS: BP 131/71
[2020-06-15 06:26] LABS: BASO % 0.6 % (0.0-1.0); EOS % 0.6 % (0.0-3.0); HEMOGLOBIN 12.7 g/dl (12.0-15.5); LYMPH # 1.7 10^3/uL (1.5-5.0); LYMPH % 35.2 % (24.0-44.0); MEAN CORPUSCULAR HEMOGLOBIN 28.5 pg (27.0-33.0); MEAN CORPUSCULAR VOLUME 92.1 fl (80.0-96.0); MONO # 0.4 10^3/uL (0.0-0.8); MONO % 7.6 % (0.0-5.0); NEUTROPHILS # 2.7 10^3/uL (1.5-8.5); NEUTROPHILS % 55.6 % (36.0-66.0); PLATELET COUNT, AUTOMATED 174 10^3/uL (150-450); RED BLOOD COUNT 4.45 10^6/uL (4.00-5.40); WHITE BLOOD COUNT 4.9 10^3/uL (4.0-10.0)
[2020-06-15 06:31] LABS: ALBUMIN 2.5 GM/DL (3.2-5.2); ALT/SGPT 21 U/L (12-78); BILIRUBIN,TOTAL 0.3 MG/DL (0.2-1.0); BLOOD UREA NITROGEN 25 MG/DL (7-18); CALCIUM LEVEL 7.8 MG/DL (8.5-10.1); CARBON DIOXIDE LEVEL 26 MEQ/L (21-32); CHLORIDE LEVEL 109 MEQ/L (98-107); CREATININE FOR GFR 0.68 MG/DL (0.55-1.30); GLOMERULAR FILTRATION RATE > 60.0 (>51); GLUCOSE, FASTING 84 MG/DL (70-100); POTASSIUM SERUM 3.1 MEQ/L (3.5-5.1); SODIUM LEVEL 143 MEQ/L (136-145)
[2020-06-15] MEDS ORDERED: POTASSIUM CHLORIDE 10 MEQ SR TABLET PO ONE (07:45)
[2020-06-15] MEDS ORDERED: AUGM875T28 PO (09:17)
[2020-06-15] MEDS ORDERED: PRED20TA PO (09:17)
[2020-06-15] MEDS ORDERED: AZIT500T5 PO (09:17)
[2020-06-15] MEDS: PREGABALIN 75 MG CAP(LYRICA) PO SCH (09:31)
[2020-06-15] MEDS: predniSONE 20 MG TAB PO SCH (09:31)
[2020-06-15] MEDS: FLUoxetine 20 MG CAP PO SCH (09:31)
[2020-06-15] MEDS: ENOXAPARIN 40MG/0.4ML SYRINGE (J1650 PER 10MG) SC SCH (09:31)
[2020-06-15] MEDS ORDERED: VENTAER INH (09:32)
[2020-06-15] MEDS ORDERED: SPIR1CAP INH (09:32)
--- NOTE | 2020-06-15 11:51 | DS.PDOC ---
Discharge Summary General Date of Admission Jun 12, 2020 at 13:41 Date of Discharge 06/15/20 Discharge Summary PROCEDURES PERFORMED DURING STAY: [None]. ADMITTING DIAGNOSES: Bilateral pneumonia Depression Morbid obesity DISCHARGE DIAGNOSES: Bilateral pneumonia Depression Morbid obesity COMPLICATIONS/CHIEF COMPLAINT: Bilateral Pneumonia,Depression,Morbid Obesity. HISTORY OF PRESENT ILLNESS: Patient is 59 years old female with a past history of depression, morbid obesity, bypass surgery presented to the hospital with increased shortness of breath and cough. Patient stated that for past few days she has been having increased shortness of breath associated with dry cough. In ER patient was found to have no leukocytosis, elevated d-dimer of 1605, CTA showed Extensive patchy bilateral upper and lower lobe pneumonia. No CT evidence of pulmonary embolus.. Commonly reported imaging features of COVID 19 pneumonia are present. Covid 19 test negative HOSPITAL COURSE: During hospital stay following issues addressed (1) Bilateral pneumonia CT showed bilateral pulmonary Ceftriaxone IV, azithromycin IV Incentive spirometry Prednisone 40 mg by mouth Inhalers (2) Depression Continue home medications (3) Morbid obesity BMI 62 Complicated care DISCHARGE MEDICATIONS: Please see below. ALLERGIES: Please see below. PHYSICAL EXAMINATION ON DISCHARGE: VITAL SIGNS: Please see below. GENERAL APPEARANCE: Morbidly obese female HEENT: no scleral icterus, no JVD, EOMI CARDIOVASCULAR: S1S2 LUNGS: Diminished lung sounds bilaterally ABDOMEN: soft & not tender w palpitation MUSCULOSKELETAL: no cyanosis, no swelling INTEGUMENT: no generalized pallor NEUROLOGICAL: cranial nerve function from 2-12 intact intact, follows commands, speech not dysarthric LABORATORY DATA: Please see below. IMAGING: [facility] NAME: QUINTON PHILLIPS DATE OF : 1960 AGE: 59 SEX: F REPORT #: [id number] ROOM: ED TECHNOLOGIST: [place] [address] DOCTOR: Gustabo Padgett M.D. Ordered for Date&Time: 06/12/20 1121 cc: [~ rep ct ivnm] Service Date&Time: 06/12/20 1158 This report is in Signed status. If this report is in a DRAFT status it has not yet been reviewed by the radiologist for accuracy. Thank you for having your radiology procedures performed at [facility] RADIOLOGY REPORT Date&Time printed: [~ rep prt dt last] [~ rep prt tm last] Page 2 of [address] [address] RADIOLOGY REPORT This report is in Signed status. If this report is in a DRAFT status it has not yet been reviewed by the radio logist for accuracy. Thank you for having your radiology procedures performed at [facility] RADIOLOGY REPORT Date&Time printed: [~ rep prt dt last] [~ rep prt tm last] Page 1 of 2 DATE OF : 1960 AGE: 59 SEX: F REPORT #: [id number] ROOM: ED TECHNOLOGIST: [place] DOCTOR: Gustabo Padgett M.D. Ordered for Date&Time: 06/12/20 1121 cc: [~ rep ct ivnm] Service Date&Time: 06/12/20 1158 EXAMINATION REQUESTED: CT ANGIO CHEST REASON FOR PATIENT VISIT: SHORT OF BREATH / CHEST PAIN REASON FOR EXAM/COMMENT: hypoxia, elevated D dimer, r/o PE INDICATION: hypoxia, elevated D dimer, r/o PE. COMPARISON: None. TECHNIQUE: Contrast dose: 75 ML of Isovue [address] technique: Helical scanning is acquired and overlapping 1.5 mm and contiguous 3 mm axial images are reformatted. In addition, maximum intensity projection and multiplanar re-formation images are generated in sagittal and coronal imaging projections. FINDINGS: There is good opacification in the pulmonary arterial tree. There is no evidence of vessel cut off or filling defect to suggest pulmonary embolus. Homogeneous opacity is seen in the thoracic aorta. There is no evidence of aneurysm or dissection. Lung window settings demonstrate extensive patchy ground-glass opacity and more confluent zones of consolidation in the upper and lower lobes bilaterally consistent with extensive pneumonia bilaterally. Changes consistent with COVID pneumonitis are seen. No endobronchial disease is seen. No pleural or pericardial effusion is apparent. Cardiomegaly is observed. In the upper abdomen, normal adrenal glands are observed. The visualized upper abdominal structures are otherwise unremarkable. IMPRESSION: Extensive patchy bilateral upper and lower lobe pneumonia. No CT evidence of pulmonary embolus.. Commonly reported imaging features of COVID 19 pneumonia are present. Other processes such as influenza pneumonia, drug toxicity, and connective tissue disease can produce a similar pattern. <Electronically signed by Dinesh Maciel > 06/12/20 1243 DD: Levy Maciel MD 06/12/20 1246 DT: CHUY 06/12/20 1249 DS: AWAIS 06/12/20 1246 06/12/20 1246 [~ rep ct labl] PROGNOSIS: Fair ACTIVITY: [As tolerated]. DIET: Cardiac DISPOSITION: . Home DISCHARGE INSTRUCTIONS: Continue incentive spirometry ITEMS TO FOLLOWUP ON ON OUTPATIENT: PCP in 3-5 days DISCHARGE CONDITION: [Stable]. TIME SPENT ON DISCHARGE:35 minutes. Vital Signs/I&Os Vital Signs Date Time Temp Pulse Resp B/P (MAP) Pulse Ox O2 Delivery O2 Flow Rate FiO2 06/15/20 06:00 97.2 73 18 131/71 (91) 97 Room Air 06/14/20 22:00 3.0 06/12/20 10:23 86 I&O- Last 24 Hours up to 6 AM 06/15/20 06:00 Intake Total 1080 ml Output Total 0 ml Balance 1080 ml Laboratory Data Labs 24H Laboratory Tests 2 06/15/20 05:50: Immature Granulocyte % (Auto) 0.4, Neutrophils (%) (Auto) 55.6, Lymphocytes (%) (Auto) 35.2, Monocytes (%) (Auto) 7.6H, Eosinophils (%) (Auto) 0.6, Basophils (%) (Auto) 0.6, Neutrophils # (Auto) 2.7, Lymphocytes # (Auto) 1.7, Monocytes # (Auto) 0.4, Eosinophils # (Auto) 0.0, Basophils # (Auto) 0.0, Nucleated Red Blood Cells % (auto) 0.4H, Anion Gap 8, Glomerular Filtration Rate > 60.0, Calcium Level 7.8L, Magnesium Level 2.0, Total Bilirubin 0.3, Aspartate Amino Transf (AST/SGOT) 22, Alanine Aminotransferase (ALT/SGPT) 21, Alkaline Phosphatase 79, Total Protein 7.0, Albumin 2.5L, Albumin/Globulin Ratio 0.6L CBC/BMP Laboratory Tests 06/15/20 05:50 Microbiology Microbiology 06/12/20 Blood Culture - Preliminary, Resulted No Growth after 72 hours. All specime... 06/12/20 Blood Culture - Preliminary, Resulted No Growth after 72 hours. All specime... 06/12/20 Respiratory Virus Panel (PCR) (ANDRES) - Final, Complete Discharge Medications Scheduled Amoxicillin/Potassium Clav (Augmentin 875-125 Tablet) 1 Each Tablet, 1 TAB PO BID Azithromycin (Azithromycin) 500 Mg Tablet, 500 MG PO DAILY Cyclobenzaprine HCl (Cyclobenzaprine HCl) 10 Mg Tab, 10 MG PO QHS, (Reported) Fluoxetine Hcl (Fluoxetine HCl) 40 Mg Capsule, 80 MG PO DAILY, (Reported) Mirtazapine (Remeron) 15 Mg Tablet, 15 MG PO QHS, (Reported) Prednisone (Prednisone) 20 Mg Tablet, 1 TAB PO BID Pregabalin (Pregabalin) 150 Mg Capsule, 150 MG PO BID, (Reported) Tiotropium [place] (Spiriva) 18 Mcg Cap.w.dev, 18 MCG INH DAILY Scheduled PRN Albuterol Sulfate (Ventolin Hfa) 18 Gm Hfa.aer.ad, 2 PUFF INH Q4-6HP PRN for wheezing Cyclobenzaprine HCl (Cyclobenzaprine HCl) 10 Mg Tablet, 10 MG PO BID PRN for MUSCLE SPASMS, (Reported) Allergies Coded Allergies: bee venom protein (honey bee) (Verified Allergy, Severe, anaphylaxis, 03/22/20) trazodone (Verified Allergy, Severe, can't breathe, 03/22/20) latex (Verified Allergy, Mild, rash, 03/22/20) metronidazole (Verified Allergy, Mild, rash, 03/22/20) MARIJA BARKSDALE DO Jun 15, 2020 11:51
== END 2020-06-15 12:40 | disposition home or self-care (01) | DRG 194 ==
LOC: M ED 08:54 → M ED INP 13:41 → M MS5PR 15:50
PROVIDERS: ADMIT Internal Medicine; ATTEND Internal Medicine
DX: J18.9 Pneumonia, unspecified organism (principal); Z68.44 Body mass index [BMI] 60.0-69.9, adult; F32.9 Major depressive disorder, single episode, unspecified; E78.00 Pure hypercholesterolemia, unspecified; M79.18 Myalgia, other site; M54.2 Cervicalgia; E66.01 Morbid (severe) obesity due to excess calories; Z20.822 Contact with and (suspected) exposure to COVID-19; Z79.899 Other long term (current) drug therapy; Z88.8 Allergy status to other drugs, medicaments and biological substances; Z91.030 Bee allergy status; Z91.040 Latex allergy status; Z98.84 Bariatric surgery status

== ENCOUNTER → 2020-07-24 | Outpatient (REF) | payer MEDICARE ==
[~2020-07-24] MED LIST changes: +AUGM875T28 PO; +AZIT500T5 PO; +MIRT-62 PO; +SPIR1CAP INH; +VENTAER INH
== END ==
LOC: M SFHCPLAZ 10:54
PROVIDERS: ATTEND Family Medicine
DX: Z98.84 Bariatric surgery status (principal)

== ENCOUNTER → 2020-07-25 | Outpatient (REF) | payer MEDICARE ==
[2020-07-25 12:02] LABS: HEMOGLOBIN 12.6 g/dl (12.0-15.5); MEAN CORPUSCULAR HEMOGLOBIN 29.1 pg (27.0-33.0); MEAN CORPUSCULAR HGB CONC 31.5 g/dl (32.0-36.5); MEAN CORPUSCULAR VOLUME 92.4 fl (80.0-96.0); PLATELET COUNT, AUTOMATED 171 10^3/uL (150-450); RED BLOOD COUNT 4.33 10^6/uL (4.00-5.40); WHITE BLOOD COUNT 3.9 10^3/uL (4.0-10.0)
[2020-07-25 12:25] LABS: HEMOGLOBIN A1c 5.7 %
[2020-07-25 12:50] LABS: ALBUMIN 3.2 GM/DL (3.2-5.2); ALT/SGPT 25 U/L (12-78); BILIRUBIN,TOTAL 0.3 MG/DL (0.2-1.0); BLOOD UREA NITROGEN 16 MG/DL (7-18); CALCIUM LEVEL 8.3 MG/DL (8.5-10.1); CARBON DIOXIDE LEVEL 29 MEQ/L (21-32); CHLORIDE LEVEL 106 MEQ/L (98-107); CHOLESTEROL LEVEL 166 MG/DL (<200); CHOLESTEROL RISK RATIO 3.952 (<5); CREATININE FOR GFR 0.67 MG/DL (0.55-1.30); FERRITIN 13 NG/ML (8-252); FOLATE 10.3 NG/ML (>5.4); FREE T4 0.84 NG/DL (0.76-1.46); GLOMERULAR FILTRATION RATE > 60.0 (>51); GLUCOSE, FASTING 174 MG/DL (70-100); HDL CHOLESTEROL 42 MG/DL (>40); IRON (FE) 52 UG/DL (50-170); LDL CHOLESTEROL 102 MG/DL (<100); MAGNESIUM LEVEL 1.9 MG/DL (1.8-2.4); NON-HDL-C 124 MG/DL; PERCENT SATURATION 13.2 % (13.2-45.0); PHOSPHORUS LEVEL 2.8 MG/DL (2.5-4.9); SODIUM LEVEL 140 MEQ/L (136-145); TOTAL IRON BINDING CAPACITY 393 UG/DL (250-450); TOTAL PROTEIN 7.1 GM/DL (6.4-8.2); TRIGLYCERIDES LEVEL 111 MG/DL (<150)
== END ==
LOC: M SFHCPLAZ 09:22
PROVIDERS: ATTEND Family Medicine
DX: Z98.84 Bariatric surgery status (principal); Z79.899 Other long term (current) drug therapy; F33.1 Major depressive disorder, recurrent, moderate; F41.1 Generalized anxiety disorder; Z63.0 Problems in relationship with spouse or partner

== ENCOUNTER 2020-10-02 15:28 | Emergency (ER) | payer MEDICARE ==
[~2020-10-02] VITALS: Ht 149.9 cm; Wt 142.7 kg
--- NOTE | 2020-10-02 16:31 | REP ---
INDICATION: CHEST PAIN COMPARISON: 06/12/2020 TECHNIQUE: Portable AP view of the chest FINDINGS: The mediastinum and cardiac silhouette are stable and within normal limits for portable technique. The lung landa are clear without acute consolidation, effusion, or pneumothorax. Skeletal structures are intact. IMPRESSION: No acute cardiopulmonary process appreciated. <Electronically signed by Polo Abad > 10/02/20 3857
[2020-10-02 16:46] LABS: BASO % 0.7 % (0.0-1.0); EOS # 0.4 10^3/uL (0.0-0.5); EOS % 6.3 % (0.0-3.0); HEMATOCRIT 39.4 % (36.0-47.0); HEMOGLOBIN 12.4 g/dl (12.0-15.5); LYMPH # 1.6 10^3/uL (1.5-5.0); LYMPH % 28.6 % (24.0-44.0); MEAN CORPUSCULAR HEMOGLOBIN 28.2 pg (27.0-33.0); MEAN CORPUSCULAR HGB CONC 31.5 g/dl (32.0-36.5); MEAN CORPUSCULAR VOLUME 89.5 fl (80.0-96.0); MONO # 0.5 10^3/uL (0.0-0.8); MONO % 9.7 % (2.0-8.0); NEUTROPHILS % 54.5 % (36.0-66.0); PLATELET COUNT, AUTOMATED 183 10^3/uL (150-450); WHITE BLOOD COUNT 5.6 10^3/uL (4.0-10.0)
[2020-10-02 17:27] LABS: ALBUMIN 3.2 GM/DL (3.2-5.2); ALT/SGPT 24 U/L (12-78); BILIRUBIN,DIRECT < 0.1 MG/DL (0.0-0.2); BILIRUBIN,TOTAL 0.4 MG/DL (0.2-1.0); BLOOD UREA NITROGEN 14 MG/DL (7-18); CALCIUM LEVEL 8.3 MG/DL (8.5-10.1); CARBON DIOXIDE LEVEL 27 MEQ/L (21-32); CHLORIDE LEVEL 108 MEQ/L (98-107); CREATININE FOR GFR 0.62 MG/DL (0.55-1.30); GLOMERULAR FILTRATION RATE > 60.0 (>51); GLUCOSE, FASTING 83 MG/DL (70-100); LIPASE 51 U/L (73-393); POTASSIUM SERUM 4.3 MEQ/L (3.5-5.1); SODIUM LEVEL 141 MEQ/L (136-145); TOTAL PROTEIN 7.4 GM/DL (6.4-8.2)
[2020-10-02 20:15] VITALS: BP 113/60
[2020-10-02] MEDS ORDERED: CIPR-249 PO (20:23)
[2020-10-02] MEDS ORDERED: CIPROFLOXACIN 500MG TABLET PO ONE (20:25)
--- NOTE | 2020-10-03 20:41 | ECGEPIP ---
[facility] - ED Test Date: 2020-10-02 Pat Name: QUINTON PHILLIPS Department: Room: - Gender: Female [employer] Specialist: LR : 1960 Requested By: Heide Rice Order Number: [id number] Reading MD: Ananya Stokes Measurements Intervals [place] Rate: 92 P: 11 MS: 134 QRS: 47 QRSD: 100 T: 27 QT: 398 QTc: 492 Interpretive Statements Normal sinus rhythm NSTTW abnormalities Prolonged QT similar 06/12/20 Electronically Signed on 10-03-2020 20:41:26 EDT by Ananya Stokes
== END 2020-10-02 20:40 | disposition home or self-care (01) ==
LOC: M ED 15:28
DX: N39.0 Urinary tract infection, site not specified (principal); R19.7 Diarrhea, unspecified; I10 Essential (primary) hypertension; E78.5 Hyperlipidemia, unspecified; K21.9 Gastro-esophageal reflux disease without esophagitis; Z91.030 Bee allergy status; Z91.040 Latex allergy status

== ENCOUNTER → 2020-10-04 | Outpatient (REF) | payer MEDICARE | LOC: M LAB REF 12:42 | PROVIDERS: ATTEND Emergency Medicine | DX: Z53.8 Procedure and treatment not carried out for other reasons (principal) ==

== ENCOUNTER → 2020-10-05 | Outpatient (REF) | payer OTHER | LOC: M SFHCPLAZ 09:06 | PROVIDERS: ATTEND Family Medicine | DX: R74.01 Elevation of levels of liver transaminase levels (principal) ==

== ENCOUNTER 2020-12-21 10:56 | Inpatient (IN) | payer OTHER ==
[~2020-12-21] VITALS: Ht 149.9 cm; Wt 147.3 kg
[2020-12-21] MEDS ORDERED: ALBUTEROL SULFATE 2.5 MG/0.5 ML INH NEB SOLN INH ONE (11:25)
[2020-12-21] MEDS ORDERED: methylPREDNISolone 125MG 2ML VIAL IV ONE (11:25)
[2020-12-21] MEDS ORDERED: IPRATROPIUM 0.5MG/ALBUTEROL 2.5MG INH SOL UD 3ML (DUONEB) NEB ONE (11:25)
[2020-12-21] MEDS ORDERED: ARIP1TAB4 PO (11:29)
[2020-12-21 11:45] LABS: BASO % 0.2 % (0.0-1.0); HEMATOCRIT 38.3 % (36.0-47.0); HEMOGLOBIN 12.5 g/dl (12.0-15.5); LYMPH # 0.6 10^3/uL (1.5-5.0); LYMPH % 4.6 % (24.0-44.0); MEAN CORPUSCULAR HEMOGLOBIN 28.9 pg (27.0-33.0); MEAN CORPUSCULAR HGB CONC 32.6 g/dl (32.0-36.5); MEAN CORPUSCULAR VOLUME 88.7 fl (80.0-96.0); MONO # 0.6 10^3/uL (0.0-0.8); MONO % 5.2 % (2.0-8.0); NEUTROPHILS # 10.9 10^3/uL (1.5-8.5); NEUTROPHILS % 89.5 % (36.0-66.0); PLATELET COUNT, AUTOMATED 157 10^3/uL (150-450); RED BLOOD COUNT 4.32 10^6/uL (4.00-5.40); WHITE BLOOD COUNT 12.2 10^3/uL (4.0-10.0)
[2020-12-21] MEDS: COMBIVENT RESPIMAT 100-20MCG INHALER 4GM INH SCH ×3 (11:52→14:24)
--- NOTE | 2020-12-21 11:54 | REP ---
INDICATION: DYSPNEA/COUGH. COMPARISON: 10/02/2020 the latest prior also portable TECHNIQUE: Portable FINDINGS: The technique utilized in obtaining the radiograph has magnified the cardiac silhouette and accentuated the interstitial markings. The cardiomediastinal silhouette is unchanged. The interstitial markings are diffusely increased. There is a haziness throughout the pulmonary vascularity. This represents a change the prior exam. Patchy left retrocardiac opacities may have developed. The pleural angles are sharp. The osseous structures stable. IMPRESSION: Evidence of interstitial edema and possible patchy left retrocardiac opacity. PA and lateral views of the chest are suggested. <Electronically signed by Shawn Segundo > 12/21/20 2746
[2020-12-21 12:23] LABS: RSV AMPLIFICATION NEGATIVE (NEGATIVE)
[2020-12-21 12:25] LABS: BILIRUBIN,DIRECT 0.3 MG/DL (0.0-0.2); BILIRUBIN,TOTAL 0.8 MG/DL (0.2-1.0); MB/CK RELATIVE INDEX 1.04 (< OR =4); THYROID STIMULATING HORMONE 0.941 uIU/ML (0.358-3.740); THYROXINE (T4) 6.9 UG/DL (4.5-12.0); TOTAL PROTEIN 6.9 GM/DL (6.4-8.2); TROPONIN I 0.06 NG/ML (< 0.10)
[2020-12-21] MEDS ORDERED: ISOVUE-370 76% 100ML VIAL As Ordered ONE (12:49)
--- NOTE | 2020-12-21 14:37 | REP ---
INDICATION: sob sudden onset 4 am ro pe COMPARISON: None. TECHNIQUE: Axial contrast enhanced images from the thoracic inlet to the upper abdomen using pulmonary embolus technique with multiplanar re-formations. 75 ml Isovue 370 intravenous contrast material administered without complication. This CT examination was performed using the following dose reduction techniques: Automated exposure control, adjustment of mA and/or kv according to the patient's size, and use of iterative reconstruction technique. FINDINGS: Examination is suboptimal for the evaluation of pulmonary embolus due to timing and poor enhancement of the pulmonary vasculature. Moderate bilateral lower lobe patchy infiltrates consistent with acute multifocal pneumonia. COVID related pulmonary disease cannot be excluded. No effusion. No pneumothorax. Tracheobronchial tree is patent. Evaluation of the mediastinum demonstrates normal thoracic aorta and heart/pericardium. Atherosclerotic changes to the coronary arteries suggested. No pericardial effusion. IMPRESSION: Moderate bilateral lower lobe infiltrates compatible with pneumonia. COVID related pulmonary disease cannot be excluded. <Electronically signed by Polo Abad > 12/21/20 1278
[2020-12-21] MEDS ORDERED: AZITHROMYCIN INJ 500 MG, VIAL MATE ADAPTER 1 EACH in NS 250 ML IV ONE (15:40)
[2020-12-21] MEDS ORDERED: cefTRIAXone SOD 1 GM in D5W MINI-BAG PLUS 50 ML IV ONE (15:40)
[2020-12-21] MEDS ORDERED: ACETAMINOPHEN TAB 650MG DOSE (2X325MG) PO PRN (16:45)
[2020-12-21] MEDS ORDERED: MAALOX 30 ML SUSP *UDC PO PRN (16:45)
[2020-12-21] MEDS ORDERED: MOM 30ML SUSPENSION UDC PO PRN (16:45)
[2020-12-21] MEDS ORDERED: HOME MED LIST COMPLETE! XX SCH (17:00)
[2020-12-21] MEDS ORDERED: CYCLOBENZAPRINE 10MG TABLET PO PRN (17:15)
--- NOTE | 2020-12-21 17:20 | HPEPDOC ---
[facility] Medical History & Physical Date of Admission Dec 21, 2020 Date of Service: Dec 21, 2020 History and Physical CHIEF COMPLAINT: Shortness of breath HISTORY OF PRESENT ILLNESS: Mrs. Ellison is a pleasant 60-year-old lady with a past medical history of depression class III obesity gastric bypass surgery who presented to the hospital ER complaining of shortness of breath which began at roughly 2:30 in the morning today. She is also been complaining of of cough productive of green sputum but does not endorse any fevers chills rigors. She has no sick contacts at home. She tested negative for Covid in the ER. The patient was afebrile on arrival to the ER. She had mild tachycardia at approximately 109 bpm. She was saturating to 88% on room air. This improved to 97% on 2 L of nasal cannula. CT angiogram of the chest did not show pulmonary embolism but did reveal a bilateral pneumonia. She was started on IV ceftriaxone and azithromycin. She is admitted for management of sepsis secondary to community acquired pneumonia. PAST MEDICAL HISTORY: HYPERCHOLESTEROLEMIA DEPRESSION CHRONIC BACK FRACTURE OF L2/3. MYOFACIAL PAIN SYNDROME CERVICALGIA PODIATRY - HEEL SPUR SYNDROME + PLANTAR FASCITIS 01/[address] BLACKBURN STATUS POST GASTRIC BYPASS PAST SURGICAL HISTORY: HYSTERECTOMY (TOTAL) 2000 GALLBLADDER 1996 LEFT INGUINAL HERNIA REPAIR REPAIR ABNORMALITY RIGHT FOOT 2002 COLONOSCOPY/ENDOSCOPY 01/2014 BIOPSY-RT FOOT 05/26/[address] DANIELS ABDOMINAL FAT REMOVED 04/30/2019 SOCIAL HISTORY: Patient denies smoking Patient denies etoh use Patient denies illicit drug use FAMILY HISTORY: Extensive cardiac history in the family including coronary artery disease ALLERGIES: Please see below. REVIEW OF SYSTEMS: 10 point review of systems conducted, relevant findings are noted in the HPI. HOME MEDICATIONS: Please see below. PHYSICAL EXAMINATION: VITAL SIGNS: please see below General: NAD, comfortable HEENT: PERRLA, EOMI, sclerae clear Neck: supple, normal ROM, no JVD Respiratory: lungs CTAB, no wheeze, no rales, no crackles CVS: RRR, normal S1, S2, no murmurs Abdo: soft, no masses, no hepatosplenomegaly, BS+, no rebound tenderness Extremities: no edema, pulses 2+ MSK: no joint deformities, normal ROM Neuro: no focal neuro deficits, moving all 4 extremities, CN2-12 intact. Strength 5/5 in all 4 extremities. No nystagmus. Psych: calm, cooperative, AAO x 3 LABORATORY DATA: See below. IMAGING: CT angiogram of the chest 12/21/2020: IMPRESSION: Moderate bilateral lower lobe infiltrates compatible with pneumonia. COVID related pulmonary disease cannot be excluded. CXR (12/21/20): Evidence of interstitial edema and possible patchy left retrocardiac opacity. PA and lateral views of the chest are suggested. MICROBIOLOGY: Please see below. ASSESSMENT: 60-year-old female with a past medical history of depression morbid obesity and gastric bypass surgery being admitted for the management of her bilateral community-acquired pneumonia. Patient was started on IV ceftriaxone and azithromycin. . PLAN: Sepsis 2/2 community acquired pneumonia with hypoxia: 2L O2 saturating at 95%. WBC 12.2. Afebrile. Cough with green sputum. c/w IV ceftriaxone. c/w IV azithromycin. Ordered sputum culture. Ordered legionella ag. Ordered strep ag. Incentive spirometer. Acapella. Depression: resume home regimen. aripirazole. fluoxetine. mirtazepine. Chronic back pain: c/w home cyclobenzaprine. c/w home lyrica 150 mg bid. Gastric bypass: will check electrolytes, including Mag. DVT ppx: heparin 5000 units q8h SC. Dispo: DC home pending clinical improvement. Vital Signs Vital Signs Date Time Temp Pulse Resp B/P (MAP) Pulse Ox O2 Delivery O2 Flow Rate FiO2 12/21/20 15:15 97 20 142/69 (93) 95 Nasal Cannula 2.0 12/21/20 10:58 98.1 Laboratory Data Labs 24H Laboratory Tests 2 12/21/20 11:28: Immature Granulocyte % (Auto) 0.5, Neutrophils (%) (Auto) 89.5H, Lymphocytes (%) (Auto) 4.6L, Monocytes (%) (Auto) 5.2, Eosinophils (%) (Auto) 0.0, Basophils (%) (Auto) 0.2, Neutrophils # (Auto) 10.9H, Lymphocytes # (Auto) 0.6L, Monocytes # (Auto) 0.6, Eosinophils # (Auto) 0.0, Basophils # (Auto) 0.0, Nucleated Red Blood Cells % (auto) 0.0, Total Bilirubin 0.8, Direct Bilirubin 0.3H, Aspartate Amino Transf (AST/SGOT) 72H, Alanine Aminotransferase (ALT/SGPT) 51, Alkaline Phosphatase 121H, Total Creatine Kinase 96, Creatine Kinase MB 1.0, Creatine Kinase MB Relative Index 1.04, Troponin I 0.06, FX-Mrn-A-Type Natriuretic Peptide 194H, Total Protein 6.9, Albumin 3.0L, Albumin/Globulin Ratio 0.8L, Thyroid Stimulating Hormone (TSH) 0.941, Thyroxine (T4) 6.9, Coronavirus (COVID- 19)(PCR) NEGATIVE, Influenza Type A (RT-PCR) NEGATIVE, Influenza Type B (RT-PCR) NEGATIVE, Respiratory Syncytial Virus (PCR) NEGATIVE 12/21/20 11:38: POC Glucose (Misc Panel) 160H, POC Sodium (Misc Panel) 142, POC Potassium (Misc Panel) 3.8, POC Chloride (Misc Panel) 102, POC Total CO2 (Misc Panel) 25.0, POC Blood Urea Nitrogen (Misc Panel 11, POC Ionized Calcium (Misc Panel) 4.0L, POC Creatinine (Misc Panel) 0.5L, POC Hematocrit (Misc Panel) 38.0 12/21/20 12:05: POC Total CO2 (Misc Panel) 29.0H, POC pH (Misc Panel) 7.463H, POC Base Excess (M isc Panel) 4.0H, POC Saturated Percent O2 (Misc) 97, POC pO2 (Misc Panel) 83.0, POC pCO2 (Misc Panel) 38.5, POC HCO3 (Misc Panel) 27.6H CBC/BMP Laboratory Tests 12/21/20 11:28 Home Medications Scheduled Amoxicillin/Potassium Clav (Amox-Clav 875-125 mg Tablet) 1 Each Tablet, 1 TAB PO BID Aripiprazole (Aripiprazole) 2 Mg Tablet, 2 MG PO DAILY Doxycycline Monohydrate (Doxycycline) 100 Mg Capsule, 1 CAP PO BID Fluoxetine Hcl (Fluoxetine HCl) 40 Mg Capsule, 80 MG PO DAILY Guaifenesin (Mucinex) 600 Mg Tab.er.12h, 600 MG PO BID Mirtazapine (Remeron) 15 Mg Tablet, 15 MG PO QHS Prednisone (Prednisone) 10 Mg Tablet, 10 MG PO TAPER Take 4 tabs daily x 3 days, then 3 tabs daily x 3 days, then 2 tabs daily x 3 days, then 1 tab daily x 3 days and stop Pregabalin (Pregabalin) 150 Mg Capsule, 150 MG PO BID Scheduled PRN Cyclobenzaprine HCl (Cyclobenzaprine HCl) 10 Mg Tablet, 10 MG PO BID PRN for MUSCLE SPASMS Allergies Coded Allergies: bee venom protein (honey bee) (Verified Allergy, Severe, anaphylaxis, 03/04 01/21) trazodone (Verified Allergy, Severe, can't breathe, 03/22/20) latex (Verified Allergy, Mild, rash, 03/22/20) metronidazole (Verified Allergy, Mild, rash, 03/22/20) A-FIB/CHADSVASC A-FIB History Current/History of A-Fib/PAF?: No Current PO Anticoag Therapy: No DIANA GEIGER MD Dec 21, 2020 17:20
[2020-12-21 19:07] LABS: BLOOD UREA NITROGEN 9 MG/DL (7-18); CALCIUM LEVEL 8.4 MG/DL (8.8-10.2); CARBON DIOXIDE LEVEL 27 MEQ/L (21-32); CHLORIDE LEVEL 111 MEQ/L (98-107); CREATININE FOR GFR 0.66 MG/DL (0.55-1.30); GLOMERULAR FILTRATION RATE > 60.0 (>45); GLUCOSE, FASTING 174 MG/DL (70-100); POTASSIUM SERUM 3.6 MEQ/L (3.5-5.1); SODIUM LEVEL 144 MEQ/L (136-145)
--- NOTE | 2020-12-21 19:27 | ECGEPIP ---
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
[2020-12-21] MEDS ORDERED: MIRTAZAPINE 15 MG TAB PO SCH (21:00)
[2020-12-21] MEDS: guaiFENesin ER 600 MG TAB PO SCH (22:37)
[2020-12-21] MEDS: PREGABALIN 75 MG CAP(LYRICA) PO SCH (22:37)
[2020-12-21] MEDS: HEPARIN SOD (PORCINE) 5000UNITS/ML 1ML VIAL/SYRINGE SC SCH (22:38)
[2020-12-21 23:42] LABS: BLOOD UREA NITROGEN 12 MG/DL (7-18); CALCIUM LEVEL 8.1 MG/DL (8.8-10.2); CARBON DIOXIDE LEVEL 27 MEQ/L (21-32); CHLORIDE LEVEL 111 MEQ/L (98-107); CREATININE FOR GFR 0.49 MG/DL (0.55-1.30); GLOMERULAR FILTRATION RATE > 60.0 (>45); GLUCOSE, FASTING 134 MG/DL (70-100); POTASSIUM SERUM 3.8 MEQ/L (3.5-5.1); SODIUM LEVEL 144 MEQ/L (136-145)
[2020-12-22 01:30] VITALS: BP 134/67
[2020-12-22 06:00] VITALS: BP 132/68
[2020-12-22] MEDS: HEPARIN SOD (PORCINE) 5000UNITS/ML 1ML VIAL/SYRINGE SC SCH (06:04)
[2020-12-22 07:06] LABS: BASO % 0.2 % (0.0-1.0); HEMATOCRIT 36.5 % (36.0-47.0); HEMOGLOBIN 11.7 g/dl (12.0-15.5); LYMPH # 1.3 10^3/uL (1.5-5.0); LYMPH % 12.7 % (24.0-44.0); MEAN CORPUSCULAR HEMOGLOBIN 28.7 pg (27.0-33.0); MEAN CORPUSCULAR HGB CONC 32.1 g/dl (32.0-36.5); MEAN CORPUSCULAR VOLUME 89.5 fl (80.0-96.0); MONO # 0.6 10^3/uL (0.0-0.8); MONO % 5.4 % (2.0-8.0); NEUTROPHILS # 8.3 10^3/uL (1.5-8.5); NEUTROPHILS % 81.3 % (36.0-66.0); PLATELET COUNT, AUTOMATED 136 10^3/uL (150-450); RED BLOOD COUNT 4.08 10^6/uL (4.00-5.40); WHITE BLOOD COUNT 10.2 10^3/uL (4.0-10.0)
[2020-12-22 07:27] LABS: BLOOD UREA NITROGEN 15 MG/DL (7-18); CALCIUM LEVEL 7.8 MG/DL (8.8-10.2); CARBON DIOXIDE LEVEL 27 MEQ/L (21-32); CHLORIDE LEVEL 111 MEQ/L (98-107); CREATININE FOR GFR 0.53 MG/DL (0.55-1.30); GLOMERULAR FILTRATION RATE > 60.0 (>45); GLUCOSE, FASTING 100 MG/DL (70-100); MAGNESIUM LEVEL 2.2 MG/DL (1.8-2.4); POTASSIUM SERUM 3.4 MEQ/L (3.5-5.1); SODIUM LEVEL 143 MEQ/L (136-145)
[2020-12-22] MEDS: PREGABALIN 75 MG CAP(LYRICA) PO SCH (08:47)
[2020-12-22] MEDS: guaiFENesin ER 600 MG TAB PO SCH (08:48)
[2020-12-22] MEDS ORDERED: cefTRIAXone SOD 1 GM in D5W MINI-BAG PLUS 50 ML IV SCH (09:00)
[2020-12-22] MEDS ORDERED: predniSONE 20 MG TAB PO SCH (09:00)
[2020-12-22] MEDS ORDERED: ARIPiprazole 2 MG TAB PO SCH (09:00)
[2020-12-22] MEDS ORDERED: FLUoxetine 20 MG CAP PO SCH (09:00)
[2020-12-22] MEDS ORDERED: POTASSIUM CHLORIDE 10 MEQ SR TABLET PO ONE (09:00)
[2020-12-22] MEDS ORDERED: AZITHROMYCIN INJ 500 MG, VIAL MATE ADAPTER 1 EACH in NS 250 ML IV SCH (10:00)
[2020-12-22 12:12] LABS: BLOOD UREA NITROGEN 18 MG/DL (7-18); CARBON DIOXIDE LEVEL 28 MEQ/L (21-32); CHLORIDE LEVEL 110 MEQ/L (98-107); CREATININE FOR GFR 0.66 MG/DL (0.55-1.30); GLOMERULAR FILTRATION RATE > 60.0 (>45); GLUCOSE, FASTING 132 MG/DL (70-100); POTASSIUM SERUM 3.9 MEQ/L (3.5-5.1); SODIUM LEVEL 141 MEQ/L (136-145)
[2020-12-22] MEDS ORDERED: PRED10TA2 PO (13:09)
[2020-12-22] MEDS ORDERED: AMOX875T2 PO (13:09)
[2020-12-22] MEDS ORDERED: DOXY-350 PO (13:09)
--- NOTE | 2020-12-22 13:10 | DS.PDOC ---
Discharge Summary General Date of Admission Dec 21, 2020 at 16:43 Date of Discharge 12/22/20 Discharge Summary PROCEDURES PERFORMED DURING STAY: [None]. ADMITTING DIAGNOSES: Sepsis 2/2 community acquired pneumonia with hypoxia hx of depression hx of chronic back pain hx of gastric bypass DISCHARGE DIAGNOSES: Sepsis 2/2 community acquired pneumonia with hypoxia hx of depression hx of chronic back pain hx of gastric bypass COMPLICATIONS/CHIEF COMPLAINT: Hypoxia, Pneumonia. HISTORY OF PRESENT ILLNESS:" Mrs. Ellison is a pleasant 60-year-old lady with a past medical history of depression class III obesity gastric bypass surgery who presented to the hospital ER complaining of shortness of breath which began at roughly 2:30 in the morning today. She is also been complaining of of cough productive of green sputum but does not endorse any fevers chills rigors. She has no sick contacts at home. She tested negative for Covid in the ER. The patient was afebrile on arrival to the ER. She had mild tachycardia at approximately 109 bpm. She was saturating to 88% on room air. This improved to 97% on 2 L of nasal cannula. CT angiogram of the chest did not show pulmonary embolism but did reveal a bilateral pneumonia. She was started on IV ceftriaxone and azithromycin. She is admitted for management of sepsis secondary to community acquired pneumonia. " HOSPITAL COURSE: Sepsis 2/2 community acquired pneumonia with hypoxia: 2L O2 saturating at 95%. WBC 12.2. Afebrile. Cough with green sputum. c/w IV ceftriaxone. c/w IV azithromycin. Ordered sputum culture. Ordered legionella ag. Ordered strep ag. Incentive spirometer. Acapella. Depression: resume home regimen. aripirazole. fluoxetine. mirtazepine. Chronic back pain: c/w home cyclobenzaprine. c/w home lyrica 150 mg bid. Gastric bypass: will check electrolytes, including Mag. DVT ppx: heparin 5000 units q8h SC. DISCHARGE MEDICATIONS: Please see below. ALLERGIES: Please see below. PHYSICAL EXAMINATION ON DISCHARGE: VITAL SIGNS: please see below General: NAD, comfortable HEENT: PERRLA, EOMI, sclerae clear Neck: supple, normal ROM, no JVD Respiratory: lungs CTAB, no wheeze, no rales, no crackles CVS: RRR, normal S1, S2, no murmurs Abdo: soft, no masses, no hepatosplenomegaly, BS+, no rebound tenderness Extremities: no edema, pulses 2+ MSK: no joint deformities, normal ROM Neuro: no focal neuro deficits, moving all 4 extremities, CN2-12 intact. Strength 5/5 in all 4 extremities. No nystagmus. Psych: calm, cooperative, AAO x 3 LABORATORY DATA: Please see below. IMAGING: CT angiogram of the chest 12/21/2020: IMPRESSION: Moderate bilateral lower lobe infiltrates compatible with pneumonia. COVID related pulmonary disease cannot be excluded. CXR (12/21/20): Evidence of interstitial edema and possible patchy left retrocardiac opacity. PA and lateral views of the chest are suggested. PROGNOSIS: ACTIVITY: [As tolerated]. DIET: low fat diet DISCHARGE PLAN: DC home with a total of 10 days course of doxycline and augmentin DISPOSITION: home with home health DISCHARGE INSTRUCTIONS: 1. Please follow up with PCP 3-5 days. 2. PLease continue to take antibiotics for 8 days (doxycycline and augmentin). 3. If you develop worsening shortness of breath, chest pain, palpitations ,fevers, chills, coug, or otherwise worsening of your symptoms, please call 911 or return to the nearest emergency room. DISCHARGE CONDITION: [Stable]. TIME SPENT ON DISCHARGE: 35 minutes Vital Signs/I&Os Vital Signs Date Time Temp Pulse Resp B/P (MAP) Pulse Ox O2 Delivery O2 Flow Rate FiO2 12/22/20 13:05 93 Room Air 12/22/20 07:00 1.0 12/22/20 06:00 97.4 80 18 132/68 (89) I&O- Last 24 Hours up to 6 AM 12/22/20 06:00 Intake Total 305 ml Balance 305 ml Laboratory Data Labs 24H Laboratory Tests 2 12/21/20 18:13: Anion Gap 6L, Glomerular Filtration Rate > 60.0, Lactic Acid Level 1.5, Calcium Level 8.4L 12/21/20 20:28: 12/21/20 23:02: Anion Gap 6L, Glomerular Filtration Rate > 60.0, Calcium Level 8.1L 12/22/20 06:37: Anion Gap 5L, Glomerular Filtration Rate > 60.0, Calcium Level 7.8L, Immature Granulocyte % (Auto) 0.4, Neutrophils (%) (Auto) 81.3H, Lymphocytes (%) (Auto) 12.7L, Monocytes (%) (Auto) 5.4, Eosinophils (%) (Auto) 0.0, Basophils (%) (Auto) 0.2, Neutrophils # (Auto) 8.3, Lymphocytes # (Auto) 1.3L, Monocytes # (Auto) 0.6, Eosinophils # (Auto) 0.0, Basophils # (Auto) 0.0, Nucleated Red Blood Cells % (auto) 0.0, Magnesium Level 2.2 12/22/20 11:07: Anion Gap 3L, Glomerular Filtration Rate > 60.0, Calcium Level 8.0L CBC/BMP Laboratory Tests 12/21/20 18:13 12/21/20 23:02 12/22/20 06:37 12/22/20 11:07 Discharge Medications Scheduled Amoxicillin/Potassium Clav (Amox-Clav 875-125 mg Tablet) 1 Each Tablet, 1 TAB PO BID Aripiprazole (Aripiprazole) 2 Mg Tablet, 2 MG PO DAILY, (Reported) Doxycycline Monohydrate (Doxycycline) 100 Mg Capsule, 1 CAP PO BID Fluoxetine Hcl (Fluoxetine HCl) 40 Mg Capsule, 80 MG PO DAILY, (Reported) Guaifenesin (Mucinex) 600 Mg Tab.er.12h, 600 MG PO BID Mirtazapine (Remeron) 15 Mg Tablet, 15 MG PO QHS, (Reported) Prednisone (Prednisone) 10 Mg Tablet, 10 MG PO TAPER Take 4 tabs daily x 3 days, then 3 tabs daily x 3 days, then 2 tabs daily x 3 days, then 1 tab daily x 3 days and stop Pregabalin (Pregabalin) 150 Mg Capsule, 150 MG PO BID, (Reported) Scheduled PRN Cyclobenzaprine HCl (Cyclobenzaprine HCl) 10 Mg Tablet, 10 MG PO BID PRN for MUSCLE SPASMS, (Reported) Allergies Coded Allergies: bee venom protein (honey bee) (Verified Allergy, Severe, anaphylaxis, 03/22/20) trazodone (Verified Allergy, Severe, can't breathe, 03/22/20) latex (Verified Allergy, Mild, rash, 03/22/20) metronidazole (Verified Allergy, Mild, rash, 03/22/20) DIANA GEIGER MD Dec 22, 2020 13:10
[2020-12-22] MEDS ORDERED: MUCI600T31 PO (13:11)
[2020-12-29 14:08] LABS: BODY FLUID CULTURE Not indicated. (.); LEGIONELLA ANTIGEN URINE Negative (Negative); ORGANISM ID Not indicated. (.); SPECIMEN SOURCE Urine (.); URINE STREP PNEUMONIAE ANTIGEN Negative (Negative)
== END 2020-12-22 14:45 | disposition home or self-care (01) | DRG 871 ==
LOC: M ED 10:56 → M ED INP 16:43 → M MSPAV 12-22 01:20
PROVIDERS: ADMIT Family Medicine; ATTEND Family Medicine
DX: A41.9 Sepsis, unspecified organism (principal); J18.9 Pneumonia, unspecified organism; E78.00 Pure hypercholesterolemia, unspecified; F32.9 Major depressive disorder, single episode, unspecified; M54.2 Cervicalgia; M79.18 Myalgia, other site; M72.2 Plantar fascial fibromatosis; Z98.84 Bariatric surgery status; Z90.49 Acquired absence of other specified parts of digestive tract; R09.02 Hypoxemia; Z20.822 Contact with and (suspected) exposure to COVID-19; Z79.899 Other long term (current) drug therapy; Z88.8 Allergy status to other drugs, medicaments and biological substances; Z91.030 Bee allergy status; Z91.040 Latex allergy status

== ENCOUNTER 2021-01-30 17:24 | Emergency (ER) | payer OTHER ==
[~2021-01-30 17:24] MED LIST changes: +AMOX875T2 PO; +ARIP1TAB4 PO; +DOXY-350 PO; +MUCI600T31 PO; +PRED10TA2 PO
--- NOTE | 2021-01-30 17:56 | REP ---
INDICATION: FALL. COMPARISON: None. TECHNIQUE: AP and lateral views FINDINGS: There is no evidence of an acute fracture or destructive osseous lesion. IMPRESSION: No acute osseous abnormality. <Electronically signed by Shawn Segundo > 01/30/21 [id number]
--- NOTE | 2021-01-30 17:57 | REP ---
INDICATION: FALL. COMPARISON: None. TECHNIQUE: AP and lateral views FINDINGS: There appears to be a cortical irregularity of the distal radius difficult to evaluate on this limited form exam. No other acute osseous abnormalities are suspected. There is an old healed medial epicondylar fracture. IMPRESSION: Possible wrist fracture as described above. A four view wrist series is recommended. <Electronically signed by Shawn Segundo > 01/30/21 [id number]
--- NOTE | 2021-01-30 19:16 | REP ---
INDICATION: trauma. COMPARISON: None. TECHNIQUE: Four views FINDINGS: There is a comminuted distal radial fracture with an intra-articular component. IMPRESSION: Distal radial fracture as described above. <Electronically signed by Shawn Segundo > 01/30/21 0026
--- NOTE | 2021-01-31 00:30 | REPVR ---
PROCEDURE INFORMATION: Exam: CT Right Upper Extremity Without Contrast, Wrist Exam date and time: 01/30/2021 10:37 PM Age: 60 years old Clinical indication: Injury or trauma; Fall; Crushing; Wrist; Right; Additional info: Fracture wrist/intraarticular involvement TECHNIQUE: Imaging protocol: CT of the Right upper extremity without contrast was performed. Exam focused on the wrist. Radiation optimization: All CT scans at this facility use at least one of these dose optimization techniques: automated exposure control; mA and/or kV adjustment per patient size (includes targeted exams where dose is matched to clinical indication); or iterative reconstruction. COMPARISON: CR Wrist, complete RIGHT 01/30/2021 6:36 PM FINDINGS: There is acute, comminuted, intra-articular distal radial fracture involving the radiocarpal as well as distal radioulnar joint spaces. Fracture extends proximally into the distal radial metadiaphyseal junction. Slight displacement results in minimal subchondral gaps and step-off. There is negative ulnar variance. The distal ulna is intact. There is mild radiocarpal joint space loss and osteoarthritic change. Intercarpal spacing is maintained. No acute carpal bone fracture is seen. Degenerative changes are seen at the basal joint of the thumb. There is mild soft tissue swelling around the wrist. IMPRESSION: Intra-articular distal radial fracture with associated soft tissue swelling. Other findings discussed above. Electronically signed by: Dirk Valentin On 01/31/2021 00:30:38 AM
[2021-01-31] MEDS ORDERED: PERCOCET 5MG/325MG TAB PO ONE (00:35)
[2021-01-31 01:37] VITALS: BP 157/91
== END 2021-01-31 01:42 | disposition home or self-care (01) ==
LOC: M ED 17:24
DX: S52.501A Unspecified fracture of the lower end of right radius, initial encounter for closed fracture (principal); W01.0XXA Fall on same level from slipping, tripping and stumbling without subsequent striking against object, initial encounter; Y92.018 Other place in single-family (private) house as the place of occurrence of the external cause; Y93.E3 Activity, vacuuming; Z79.899 Other long term (current) drug therapy; Z88.8 Allergy status to other drugs, medicaments and biological substances; Z91.030 Bee allergy status; Z91.040 Latex allergy status

== ENCOUNTER → 2021-01-31 | Outpatient (CLI) | payer OTHER ==
--- NOTE | 2021-01-31 10:41 | REP ---
INDICATION: RT. COMPARISON: 01/30/2021 TECHNIQUE: AP and lateral views of the right wrist FINDINGS: Evaluation is limited by overlying cast material, and nondisplaced comminuted fracture of the distal radius is barely visible. IMPRESSION: Fracture of the distal radius appears in satisfactory stable position. <Electronically signed by Polo Abad > 01/31/21 [id number]
== END ==
LOC: M SOG 10:27
PROVIDERS: ATTEND Orthopaedic Surgery Adult Reconstructive Orthopaedic Surgery
DX: S52.501A Unspecified fracture of the lower end of right radius, initial encounter for closed fracture (principal); X58.XXXA Exposure to other specified factors, initial encounter; Y92.9 Unspecified place or not applicable

== ENCOUNTER → 2021-02-04 | Outpatient (CLI) | payer OTHER ==
--- NOTE | 2021-02-05 07:52 | REP ---
INDICATION: RT WRIST PAIN. COMPARISON: Comparison radiographs are from January 31, 2021. TECHNIQUE: AP and lateral views of the right wrist are provided. X-rays in overlying cast material. FINDINGS: AP and lateral views of the right wrist show no change in position at the distal radial fracture site. There is diffuse osteopenia. Osteoarthritic changes are again noted. IMPRESSION: Distal radial fracture unchanged in position. <Electronically signed by Dinesh Maciel > 02/05/21 0729
== END ==
LOC: M SOG 12:13
PROVIDERS: ATTEND Orthopaedic Surgery Adult Reconstructive Orthopaedic Surgery
DX: S52.501A Unspecified fracture of the lower end of right radius, initial encounter for closed fracture (principal); X58.XXXA Exposure to other specified factors, initial encounter; Y92.9 Unspecified place or not applicable; Y99.9 Unspecified external cause status

== ENCOUNTER → 2021-02-07 | Outpatient (CLI) | payer OTHER ==
--- NOTE | 2021-02-07 11:59 | REP ---
INDICATION: R. COMPARISON: 02/04/2021 also with cast TECHNIQUE: Two views FINDINGS: Once again, the overlying casting material obscures the bony detail. There is no evidence of significant change compared to the prior exam. Fracture is unchanged in position. IMPRESSION: Limited exam as described above showing no significant change <Electronically signed by Shawn Segundo > 02/07/21 [id number]
== END ==
LOC: M SOG 11:10
PROVIDERS: ATTEND Orthopaedic Surgery Adult Reconstructive Orthopaedic Surgery
DX: S52.501A Unspecified fracture of the lower end of right radius, initial encounter for closed fracture (principal); X58.XXXA Exposure to other specified factors, initial encounter; Y92.9 Unspecified place or not applicable; Y99.9 Unspecified external cause status

== ENCOUNTER → 2021-02-25 | Outpatient (CLI) | payer OTHER ==
--- NOTE | 2021-02-25 15:08 | REP ---
INDICATION: RT WRIST FX. COMPARISON: 02/07/[address] TECHNIQUE: AP and lateral views FINDINGS: There is no change from the prior exam. Overlying casting material screws the bony detail. No change in the previously described fracture. IMPRESSION: No significant change <Electronically signed by Shawn Segundo > 02/25/21 [id number]
== END ==
LOC: M SOG 13:24
PROVIDERS: ATTEND Orthopaedic Surgery Adult Reconstructive Orthopaedic Surgery
DX: S52.501D Unspecified fracture of the lower end of right radius, subsequent encounter for closed fracture with routine healing (principal)

== ENCOUNTER → 2021-03-12 | Outpatient (CLI) | payer OTHER ==
--- NOTE | 2021-03-12 14:22 | REP ---
INDICATION: RT WRIST. COMPARISON: 02/25/[address] TECHNIQUE: Two views FINDINGS: Previously described fractures are healing. No acute fracture has developed. Bones appear demineralized and there are degenerative changes seen throughout the wrist. IMPRESSION: Healing <Electronically signed by Shawn Segundo > 03/12/21 [id number]
== END ==
LOC: M SOG 09:11
PROVIDERS: ATTEND Orthopaedic Surgery Adult Reconstructive Orthopaedic Surgery
DX: S52.501D Unspecified fracture of the lower end of right radius, subsequent encounter for closed fracture with routine healing (principal)

== ENCOUNTER → 2021-04-12 | Outpatient (CLI) | payer OTHER ==
--- NOTE | 2021-04-12 08:24 | REP ---
INDICATION: RT WRIST FX. COMPARISON: 03/12/2021 TECHNIQUE: AP and lateral views right wrist FINDINGS: Nondisplaced healing intra-articular distal radial fracture again noted and appears relatively stable. Underlying age-related marie carpal degenerative changes noted. IMPRESSION: Healing fracture appears stable. <Electronically signed by Polo Abad > 04/12/21 [id number]
== END ==
LOC: M SOG 08:04
PROVIDERS: ATTEND Orthopaedic Surgery Adult Reconstructive Orthopaedic Surgery
DX: S52.501D Unspecified fracture of the lower end of right radius, subsequent encounter for closed fracture with routine healing (principal); X58.XXXD Exposure to other specified factors, subsequent encounter; Y92.9 Unspecified place or not applicable; Y93.9 Activity, unspecified; Y99.9 Unspecified external cause status

== ENCOUNTER → 2021-12-30 | Outpatient (CLI) | payer MEDICARE ==
[~2021-12-30] MED LIST changes: +FLUO-96 PO; -FLUO20CA20 PO; -LISI-898 PO; +LISI5TAB11 PO; -PHEN15CA PO; +PHEN15CA6 PO
== END ==
LOC: M RAD 10:15
PROVIDERS: ATTEND Student in an Organized Health Care Education/Training Program
DX: R06.02 Shortness of breath (principal)

== ENCOUNTER → 2021-12-30 | Outpatient (CLI) | payer MEDICARE, OTHER | LOC: M CARPUL 09:41 | PROVIDERS: ATTEND Student in an Organized Health Care Education/Training Program | DX: R06.02 Shortness of breath (principal) ==

== ENCOUNTER 2023-10-13 12:19 | Inpatient (IN) | payer MEDICARE, OTHER ==
[~2023-10-13] VITALS: Ht 149.9 cm; Wt 115.1 kg
[~2023-10-13 12:19] MED LIST changes: -DOXY-350 PO; +DOXY-440 PO; -MIRT-62 PO; +MIRT-88 PO; -PREG150C PO; +PREG150C2 PO
[2023-10-13] MEDS ORDERED: LEXA1TAB PO (12:50)
[2023-10-13] MEDS ORDERED: QUET150T18 PO (12:50)
[2023-10-13] MEDS ORDERED: MIRT1TAB17 PO (12:50)
[2023-10-13] MEDS: ACETAMINOPHEN *IV* 1,000 MG in IV 1 EA IV ONE (13:32)
[2023-10-13 13:45] LABS: LIPASE 17 U/L (12-53)
[2023-10-13 13:48] LABS: ALBUMIN 3.6 G/DL (3.2-5.2); ALKALINE PHOSPHATASE 81 U/L (46-116); ALT/SGPT 34 U/L (7.0-40); AST/SGOT 31 U/L (<34); BILIRUBIN,DIRECT 0.4 MG/DL (<0.4); BLOOD UREA NITROGEN 13 MG/DL (9-23); CALCIUM LEVEL 8.4 MG/DL (8.3-10.6); CARBON DIOXIDE LEVEL 27 MMOL/L (20-31); CHLORIDE LEVEL 104 MMOL/L (98-107); CREATININE FOR GFR 0.56 MG/DL (0.55-1.30); GLOMERULAR FILTRATION RATE > 60.0 (>45); GLUCOSE, FASTING 132 MG/DL (74-106); POTASSIUM SERUM 3.2 MMOL/L (3.5-5.1); SODIUM LEVEL 139 MMOL/L (136-145); TOTAL PROTEIN 7.4 G/DL (5.7-8.2)
[2023-10-13 13:53] LABS: PROCALCITONIN 0.23 ng/ml
[2023-10-13] MEDS ORDERED: ISOVUE-370 76% 100ML VIAL As Ordered ONE (13:58)
[2023-10-13 14:03] LABS: HEMATOCRIT 44.5 % (36.0-47.0); HEMOGLOBIN 15.7 g/dl (12.0-15.5); MEAN CORPUSCULAR HEMOGLOBIN 31.3 pg (27.0-33.0); MEAN CORPUSCULAR HGB CONC 35.3 g/dl (32.0-36.5); MEAN CORPUSCULAR VOLUME 88.6 fl (80.0-96.0); RED BLOOD COUNT 5.02 10^6/uL (4.00-5.40); WHITE BLOOD COUNT 7.1 10^3/uL (4.0-10.0)
[2023-10-13 14:05] LABS: AMYLASE < 20 U/L (30-118); PLATELET COUNT, AUTOMATED 69 10^3/uL (150-450)
[2023-10-13 14:09] LABS: ANISOCYTOSIS 1+; ATYPICAL LYMPH 2 % (0-5); LYMPHOCYTES 13 % (16-44); MONOCYTES 4 % (0-5); NEUTROPHILS 71 % (28-66); PLATELET ESTIMATE DECREASED (NORMAL)
[2023-10-13 14:10] LABS: TEAR DROP CELLS 1+
[2023-10-13] MEDS: NS 1,000 ML IV ONE (15:14)
[2023-10-13] MEDS: PIPERACILLIN/TAZOBACTAM SOD 3.375 GM in D5W MINI-BAG PLUS 50 ML IV ONE (15:14)
[2023-10-13] MEDS: POTASSIUM CHLORIDE 10MEQ SR TABLET PO ONE (15:14)
[2023-10-13 15:30] LABS: MAGNESIUM LEVEL 1.8 MG/DL (1.8-2.4)
[2023-10-13] MEDS: NS IV ONE (17:00)
[2023-10-13] MEDS ORDERED: HOME MED LIST COMPLETE! XX SCH ×2 (17:15)
[2023-10-13 18:00] VITALS: BP 138/72; TEMP 99.4; O2SAT 90
[2023-10-13] MEDS: FIDAXOMICIN 200 MG TAB (DIFICID) PO SCH (18:58)
[2023-10-13] MEDS: LACTOBACILLUS ACIDOPHILUS CAP (BACID) PO SCH (18:58)
[2023-10-13] MEDS: MIRTAZAPINE 15 MG TAB PO SCH (20:22)
[2023-10-13 23:35] VITALS: BP 137/67; TEMP 99.5; O2SAT 94
[2023-10-14] VITALS (9 sets, daily range): BP systolic 124–142; BP diastolic 64–72; TEMP 98.3–101.4; O2SAT 92–96
[2023-10-14] MEDS: ACETAMINOPHEN TAB 650MG DOSE (2X325MG) PO ONE (02:07)
[2023-10-14 06:09] LABS: BASO % 0.5 % (0.0-1.0); EOS % 0.3 % (0.0-3.0); HEMATOCRIT 40.9 % (36.0-47.0); HEMOGLOBIN 14.1 g/dl (12.0-15.5); LYMPH % 17.6 % (24.0-44.0); MEAN CORPUSCULAR HEMOGLOBIN 30.6 pg (27.0-33.0); MEAN CORPUSCULAR HGB CONC 34.5 g/dl (32.0-36.5); MEAN CORPUSCULAR VOLUME 88.7 fl (80.0-96.0); MONO # 0.6 10^3/uL (0.0-0.8); MONO % 9.6 % (2.0-8.0); NEUTROPHILS # 4.2 10^3/uL (1.5-8.5); NEUTROPHILS % 71.7 % (36.0-66.0); RED BLOOD COUNT 4.61 10^6/uL (4.00-5.40); WHITE BLOOD COUNT 5.8 10^3/uL (4.0-10.0)
[2023-10-14 06:40] LABS: PLATELET COUNT, AUTOMATED 67 10^3/uL (150-450)
[2023-10-14 07:31] LABS: BLOOD UREA NITROGEN 6 MG/DL (9-23); CALCIUM LEVEL 7.7 MG/DL (8.3-10.6); CARBON DIOXIDE LEVEL 28 MMOL/L (20-31); CHLORIDE LEVEL 108 MMOL/L (98-107); CREATININE FOR GFR 0.54 MG/DL (0.55-1.30); GLOMERULAR FILTRATION RATE > 60.0 (>45); GLUCOSE, FASTING 93 MG/DL (74-106); MAGNESIUM LEVEL 1.6 MG/DL (1.8-2.4); POTASSIUM SERUM 2.7 MMOL/L (3.5-5.1); SODIUM LEVEL 142 MMOL/L (136-145)
[2023-10-14] MEDS: KCL 10MEQ/100ML SWI (KRUN) 10 MEQ in IV 1 EA IV SCH (08:05)
[2023-10-14] MEDS: ESCITALOPRAM OXALATE 10 MG TAB (LEXAPRO) PO SCH (08:05)
[2023-10-14] MEDS: POTASSIUM CHLORIDE 10MEQ SR TABLET PO SCH (08:06)
[2023-10-14] MEDS: MAG SULF 1GM/100ML (MAG RUN) 1 GM in IV 1 EA IV SCH ×2 (14:41→17:58)
[2023-10-14] MEDS: PIPERACILLIN/TAZOBACTAM SOD 3.375 GM in D5W MINI-BAG PLUS 50 ML IV SCH (21:30)
[2023-10-14] MEDS: QUEtiapine FUMARATE 50MG TAB PO SCH (21:30)
[2023-10-15] VITALS (8 sets, daily range): BP systolic 96–150; BP diastolic 54–80; TEMP 96.2–98.2; O2SAT 93–98
[2023-10-15 05:15] LABS: BASO % 0.6 % (0.0-1.0); EOS # 0.1 10^3/uL (0.0-0.5); EOS % 1.5 % (0.0-3.0); HEMATOCRIT 37.5 % (36.0-47.0); LYMPH # 0.8 10^3/uL (1.5-5.0); MEAN CORPUSCULAR HEMOGLOBIN 30.7 pg (27.0-33.0); MEAN CORPUSCULAR HGB CONC 34.7 g/dl (32.0-36.5); MEAN CORPUSCULAR VOLUME 88.7 fl (80.0-96.0); MONO # 0.3 10^3/uL (0.0-0.8); MONO % 8.4 % (2.0-8.0); NEUTROPHILS % 63.2 % (36.0-66.0); RED BLOOD COUNT 4.23 10^6/uL (4.00-5.40); WHITE BLOOD COUNT 3.2 10^3/uL (4.0-10.0)
[2023-10-15 05:16] LABS: PLATELET COUNT, AUTOMATED 70 10^3/uL (150-450)
[2023-10-15 05:47] LABS: BLOOD UREA NITROGEN < 5 MG/DL (9-23); CALCIUM LEVEL 7.6 MG/DL (8.3-10.6); CARBON DIOXIDE LEVEL 27 MMOL/L (20-31); CHLORIDE LEVEL 109 MMOL/L (98-107); CREATININE FOR GFR 0.43 MG/DL (0.55-1.30); GLOMERULAR FILTRATION RATE > 60.0 (>45); GLUCOSE, FASTING 104 MG/DL (74-106); POTASSIUM SERUM 2.9 MMOL/L (3.5-5.1); SODIUM LEVEL 142 MMOL/L (136-145)
[2023-10-15] MEDS: KCL 10MEQ/100ML SWI (KRUN) 10 MEQ in IV 1 EA IV SCH (06:03)
[2023-10-15] MEDS: CYCLOBENZAPRINE 10MG TABLET PO PRN (06:36)
[2023-10-15] MEDS: ACETAMINOPHEN TAB 650MG DOSE (2X325MG) PO PRN (06:36)
[2023-10-15] MEDS: POTASSIUM CHLORIDE 10MEQ SR TABLET PO ONE ×2 (08:02→11:31)
[2023-10-16 04:00] VITALS: BP 115/59; TEMP 98.1; O2SAT 94
[2023-10-16 09:25] LABS: BASO % 0.8 % (0.0-1.0); EOS # 0.1 10^3/uL (0.0-0.5); HEMOGLOBIN 13.7 g/dl (12.0-15.5); LYMPH # 0.8 10^3/uL (1.5-5.0); LYMPH % 31.7 % (24.0-44.0); MEAN CORPUSCULAR HEMOGLOBIN 30.5 pg (27.0-33.0); MEAN CORPUSCULAR HGB CONC 34.3 g/dl (32.0-36.5); MEAN CORPUSCULAR VOLUME 89.1 fl (80.0-96.0); MONO # 0.2 10^3/uL (0.0-0.8); MONO % 7.1 % (2.0-8.0); NEUTROPHILS # 1.4 10^3/uL (1.5-8.5); NEUTROPHILS % 55.6 % (36.0-66.0); RED BLOOD COUNT 4.49 10^6/uL (4.00-5.40); WHITE BLOOD COUNT 2.5 10^3/uL (4.0-10.0)
[2023-10-16 09:42] LABS: PLATELET COUNT, AUTOMATED 85 10^3/uL (150-450)
[2023-10-16 09:54] LABS: BLOOD UREA NITROGEN 7 MG/DL (9-23); CALCIUM LEVEL 8.3 MG/DL (8.3-10.6); CARBON DIOXIDE LEVEL 26 MMOL/L (20-31); CHLORIDE LEVEL 110 MMOL/L (98-107); CREATININE FOR GFR 0.48 MG/DL (0.55-1.30); GLOMERULAR FILTRATION RATE > 60.0 (>45); GLUCOSE, FASTING 101 MG/DL (74-106); MAGNESIUM LEVEL 1.8 MG/DL (1.8-2.4); POTASSIUM SERUM 3.3 MMOL/L (3.5-5.1); SODIUM LEVEL 144 MMOL/L (136-145)
[2023-10-16] MEDS: POTASSIUM CHLORIDE 10MEQ SR TABLET PO ONE (10:24)
[2023-10-16] MEDS: MAG SULF 1GM/100ML (MAG RUN) 1 GM in IV 1 EA IV ONE (10:24)
[2023-10-16] MEDS: CEFDINIR 300 MG CAP (OMNICEF) PO SCH (11:44)
[2023-10-16 12:00] VITALS: BP 132/80; TEMP 98.1; O2SAT 96
[2023-10-16 20:00] VITALS: BP 118/60; TEMP 98.1; O2SAT 94
[2023-10-16] MEDS: POTASSIUM CHLORIDE 10MEQ SR TABLET PO SCH (20:00)
[2023-10-17 04:00] VITALS: BP 105/52; TEMP 97.2; O2SAT 93
[2023-10-17 06:16] LABS: BASO % 1.1 % (0.0-1.0); EOS # 0.1 10^3/uL (0.0-0.5); EOS % 3.3 % (0.0-3.0); HEMATOCRIT 38.6 % (36.0-47.0); HEMOGLOBIN 13.2 g/dl (12.0-15.5); LYMPH # 1.2 10^3/uL (1.5-5.0); MEAN CORPUSCULAR HEMOGLOBIN 30.5 pg (27.0-33.0); MEAN CORPUSCULAR HGB CONC 34.2 g/dl (32.0-36.5); MEAN CORPUSCULAR VOLUME 89.1 fl (80.0-96.0); MONO # 0.2 10^3/uL (0.0-0.8); MONO % 7.4 % (2.0-8.0); NEUTROPHILS # 1.2 10^3/uL (1.5-8.5); NEUTROPHILS % 44.8 % (36.0-66.0); PLATELET COUNT, AUTOMATED 100 10^3/uL (150-450); RED BLOOD COUNT 4.33 10^6/uL (4.00-5.40); WHITE BLOOD COUNT 2.7 10^3/uL (4.0-10.0)
[2023-10-17 06:39] LABS: BLOOD UREA NITROGEN 10 MG/DL (9-23); CALCIUM LEVEL 8.1 MG/DL (8.3-10.6); CARBON DIOXIDE LEVEL 29 MMOL/L (20-31); CHLORIDE LEVEL 111 MMOL/L (98-107); CREATININE FOR GFR 0.47 MG/DL (0.55-1.30); GLOMERULAR FILTRATION RATE > 60.0 (>45); GLUCOSE, FASTING 86 MG/DL (74-106); MAGNESIUM LEVEL 1.7 MG/DL (1.8-2.4); POTASSIUM SERUM 3.6 MMOL/L (3.5-5.1); SODIUM LEVEL 145 MMOL/L (136-145)
[2023-10-17] MEDS ORDERED: RISATAB3 PO (08:15)
[2023-10-17] MEDS ORDERED: POTA-136 PO (08:15)
[2023-10-17] MEDS ORDERED: MAGN400T2 PO (08:15)
[2023-10-17] MEDS ORDERED: FIDA200TA PO (08:15)
[2023-10-17] MEDS: MAGNESIUM OXIDE 400MG TAB (MAG-OX) PO SCH (08:48)
[2023-10-17] MEDS: MAG SULF 1GM/100ML (MAG RUN) 1 GM in IV 1 EA IV ONE (08:49)
[2023-10-17] MEDS ORDERED: VANC1CAP6 PO (10:34)
[2023-10-17 12:00] VITALS: BP 132/82; TEMP 98.2; O2SAT 100
== END 2023-10-17 13:40 | disposition home or self-care (01) | DRG 872 ==
LOC: M ED 12:19 → M ED INP 16:21 → M PCU 17:30 → M MSPAV 10-15 18:39
PROVIDERS: ADMIT Internal Medicine; ATTEND Internal Medicine
DX: A41.9 Sepsis, unspecified organism (principal); A04.72 Enterocolitis due to Clostridium difficile, not specified as recurrent; K57.32 Diverticulitis of large intestine without perforation or abscess without bleeding; Z68.43 Body mass index [BMI] 50.0-59.9, adult; F32.A Depression, unspecified; E78.5 Hyperlipidemia, unspecified; E66.01 Morbid (severe) obesity due to excess calories; M79.18 Myalgia, other site; E83.42 Hypomagnesemia; E87.6 Hypokalemia; Z98.84 Bariatric surgery status; Z90.49 Acquired absence of other specified parts of digestive tract; Z88.8 Allergy status to other drugs, medicaments and biological substances; Z91.030 Bee allergy status; Z91.040 Latex allergy status; N30.90 Cystitis, unspecified without hematuria; B96.20 Unspecified Escherichia coli [E. coli] as the cause of diseases classified elsewhere; Z79.899 Other long term (current) drug therapy

== ENCOUNTER → 2023-10-19 | Outpatient (CLI) | payer MEDICARE ==
[~2023-10-19] MED LIST changes: +FIDA200TA PO; +LEXA1TAB PO; +MAGN400T2 PO; +MIRT1TAB17 PO; +POTA-136 PO; +QUET150T18 PO; +RISATAB3 PO; +VANC1CAP6 PO
[2023-10-19 14:41] LABS: BLOOD UREA NITROGEN 12 MG/DL (9-23); CALCIUM LEVEL 8.5 MG/DL (8.3-10.6); CARBON DIOXIDE LEVEL 30 MMOL/L (20-31); CHLORIDE LEVEL 109 MMOL/L (98-107); CREATININE FOR GFR 0.47 MG/DL (0.55-1.30); GLOMERULAR FILTRATION RATE > 60.0 (>45); GLUCOSE, FASTING 121 MG/DL (74-106); MAGNESIUM LEVEL 1.8 MG/DL (1.8-2.4); POTASSIUM SERUM 3.5 MMOL/L (3.5-5.1); SODIUM LEVEL 144 MMOL/L (136-145)
== END ==
LOC: M LAB 12:11
PROVIDERS: ATTEND Internal Medicine
DX: I10 Essential (primary) hypertension (principal); Z79.899 Other long term (current) drug therapy

== ENCOUNTER → 2023-10-27 | Outpatient (REF) | payer MEDICARE ==
[2023-10-27 18:36] LABS: HEMATOCRIT 43.5 % (36.0-47.0)
[2023-10-27 18:38] LABS: BASO % 1.2 % (0.0-1.0); EOS % 0.6 % (0.0-3.0); HEMATOCRIT 43.3 % (36.0-47.0); HEMOGLOBIN 14.5 g/dl (12.0-15.5); LYMPH # 1.1 10^3/uL (1.5-5.0); LYMPH % 31.7 % (24.0-44.0); MEAN CORPUSCULAR HEMOGLOBIN 30.6 pg (27.0-33.0); MEAN CORPUSCULAR HGB CONC 33.5 g/dl (32.0-36.5); MEAN CORPUSCULAR VOLUME 91.4 fl (80.0-96.0); MONO # 0.4 10^3/uL (0.0-0.8); MONO % 10.8 % (2.0-8.0); NEUTROPHILS # 1.9 10^3/uL (1.5-8.5); NEUTROPHILS % 55.4 % (36.0-66.0); RED BLOOD COUNT 4.74 10^6/uL (4.00-5.40); WHITE BLOOD COUNT 3.4 10^3/uL (4.0-10.0)
[2023-10-27 18:40] LABS: PLATELET COUNT, AUTOMATED 88 10^3/uL (150-450)
[2023-10-27 18:54] LABS: ALBUMIN 3.7 G/DL (3.2-5.2); ALKALINE PHOSPHATASE 96 U/L (46-116); ALT/SGPT 37 U/L (7.0-40); AST/SGOT 37 U/L (<34); BILIRUBIN,TOTAL 0.6 MG/DL (0.3-1.2); BLOOD UREA NITROGEN 13 MG/DL (9-23); CALCIUM LEVEL 9.5 MG/DL (8.3-10.6); CARBON DIOXIDE LEVEL 30 MMOL/L (20-31); CHLORIDE LEVEL 106 MMOL/L (98-107); CHOLESTEROL LEVEL 155 MG/DL (<200); CREATININE FOR GFR 0.56 MG/DL (0.55-1.30); GLOMERULAR FILTRATION RATE > 60.0 (>45); GLUCOSE, FASTING 106 MG/DL (74-106); HDL CHOLESTEROL 44.2 MG/DL (>40); IRON (FE) 72 UG/DL (50-170); LDL CHOLESTEROL 84.8 MG/DL (<100); MAGNESIUM LEVEL 1.9 MG/DL (1.8-2.4); NON-HDL-C 110.8 MG/DL; PERCENT SATURATION 22.9 % (13.2-45.0); SODIUM LEVEL 140 MMOL/L (136-145); TOTAL IRON BINDING CAPACITY 314 UG/DL (250-425); TOTAL PROTEIN 7.5 G/DL (5.7-8.2); TRIGLYCERIDES LEVEL 130 MG/DL (<150)
[2023-10-27 18:55] LABS: VITAMIN B12 LEVEL 612 PG/ML (211-911)
== END ==
LOC: M SFHCPLAZ 14:20
PROVIDERS: ATTEND Student in an Organized Health Care Education/Training Program
DX: E55.9 Vitamin D deficiency, unspecified (principal); E87.6 Hypokalemia; Z86.2 Personal history of diseases of the blood and blood-forming organs and certain disorders involving the immune mechanism; Z86.39 Personal history of other endocrine, nutritional and metabolic disease; Z98.84 Bariatric surgery status; Z09 Encounter for follow-up examination after completed treatment for conditions other than malignant neoplasm; Z79.899 Other long term (current) drug therapy

== ENCOUNTER → 2024-08-17 | Outpatient (CLI) | payer MEDICARE ==
[~2024-08-17] MED LIST changes: +GABA-1172 PO; -GABA-282 PO
[2024-08-17 17:51] LABS: BASO % 0.6 % (0.0-1.0); EOS % 1.3 % (0.0-3.0); HEMATOCRIT 45.7 % (36.0-47.0); HEMOGLOBIN 15.4 g/dl (12.0-15.5); LYMPH # 0.9 10^3/uL (1.5-5.0); LYMPH % 28.9 % (24.0-44.0); MEAN CORPUSCULAR HEMOGLOBIN 29.7 pg (27.0-33.0); MEAN CORPUSCULAR HGB CONC 33.7 g/dl (32.0-36.5); MEAN CORPUSCULAR VOLUME 88.1 fl (80.0-96.0); MONO # 0.3 10^3/uL (0.0-0.8); MONO % 8.8 % (2.0-8.0); NEUTROPHILS # 1.9 10^3/uL (1.5-8.5); NEUTROPHILS % 60.1 % (36.0-66.0); RED BLOOD COUNT 5.19 10^6/uL (4.00-5.40); WHITE BLOOD COUNT 3.2 10^3/uL (4.0-10.0)
[2024-08-17 18:05] LABS: CREATININE, URINE 228.4 MG/DL; MAU/CREAT RATIO 6.1 MCG/MG (0.0-30.0)
[2024-08-17 18:06] LABS: ALBUMIN 3.9 G/DL (3.2-5.2); ALKALINE PHOSPHATASE 66 U/L (35-104); ALT/SGPT 25 U/L (7.0-40); AST/SGOT 25 U/L (<34); BILIRUBIN,TOTAL 0.6 MG/DL (0.3-1.2); BLOOD UREA NITROGEN 13 MG/DL (9-23); CALCIUM LEVEL 8.8 MG/DL (8.3-10.6); CARBON DIOXIDE LEVEL 29 MMOL/L (20-31); CHLORIDE LEVEL 106 MMOL/L (98-107); CHOLESTEROL LEVEL 148 MG/DL (<200); CHOLESTEROL RISK RATIO 3.34 (<5); CREATININE FOR GFR 0.58 MG/DL (0.55-1.30); GLOMERULAR FILTRATION RATE > 90.0 (>45); GLUCOSE, FASTING 86 MG/DL (74-106); HDL CHOLESTEROL 44.2 MG/DL (>40); LDL CHOLESTEROL 81.2 MG/DL (<100); NON-HDL-C 103.8 MG/DL; POTASSIUM SERUM 3.8 MMOL/L (3.5-5.1); SODIUM LEVEL 144 MMOL/L (136-145); TOTAL PROTEIN 7.7 G/DL (5.7-8.2); TRIGLYCERIDES LEVEL 113 MG/DL (<150)
[2024-08-17 18:08] LABS: THYROID STIMULATING HORMONE 2.081 uIU/ML (0.55-4.78)
[2024-08-17 18:09] LABS: FREE T4 0.92 NG/DL (0.89-1.76)
[2024-08-17 18:30] LABS: PLATELET COUNT, AUTOMATED 96 10^3/uL (150-450)
[2024-08-17 18:56] LABS: HEMOGLOBIN A1c 4.7 % (4.0-6.0)
[2024-08-25 15:12] LABS: DQ2(DQ1A 0501/0505,DQB1 02XX) Negative (NEGATIVE); DQ8(DQA1 03XX, DQB1 0302) Negative (NEGATIVE)
[2024-08-27 01:07] LABS: DEAMIDATED GLIADIN ABS, IgA < 1.0 U/mL (<15.0); DEAMIDATED GLIADIN ABS, IgG < 1.0 U/mL (<15.0); IMMUNOGLOBULIN A CELIAC 579 mg/dL (70-320); TISSUE TRANSGLUTAMINASE IgA < 1.0 U/mL (<15.0); t-TRANSGLUTAMINASE(tTG) IgG < 1.0 U/mL (<15.0)
== END ==
LOC: M PLALAB 12:10
PROVIDERS: ATTEND Student in an Organized Health Care Education/Training Program
DX: K52.9 Noninfective gastroenteritis and colitis, unspecified (principal); E66.01 Morbid (severe) obesity due to excess calories; I10 Essential (primary) hypertension; Z79.899 Other long term (current) drug therapy

== ENCOUNTER → 2024-08-19 | Outpatient (REF) | payer MEDICARE ==
[2024-08-26 19:32] LABS: CALPROTECTIN STOOL 32 mcg/g (<50)
== END ==
LOC: M SFHCPLAZ 12:48
PROVIDERS: ATTEND Student in an Organized Health Care Education/Training Program
DX: E66.01 Morbid (severe) obesity due to excess calories (principal); K52.9 Noninfective gastroenteritis and colitis, unspecified; I10 Essential (primary) hypertension

== ENCOUNTER → 2025-03-02 | Outpatient (CLI) | payer MEDICARE ==
[~2025-03-02] MED LIST changes: +ACET-840 PO; -IBUP-1022 PO; +IBUP600T42 PO; +QUET50TA4 PO; +THERTAB52 PO; +TIZA2CAP PO; -VITA500T17 PO; +VITA500T8 PO; +ZOLP10TA11; -ZOLP10TA2
== END ==
LOC: M WHC 14:29
PROVIDERS: ATTEND Family Medicine
DX: Z53.9 Procedure and treatment not carried out, unspecified reason (principal); Z12.31 Encounter for screening mammogram for malignant neoplasm of breast; M85.851 Other specified disorders of bone density and structure, right thigh; M85.852 Other specified disorders of bone density and structure, left thigh

== ENCOUNTER → 2025-03-21 | Outpatient (CLI) | payer MEDICARE | LOC: M WHC 09:16 | PROVIDERS: ATTEND Family Medicine | DX: Z12.31 Encounter for screening mammogram for malignant neoplasm of breast (principal); M81.0 Age-related osteoporosis without current pathological fracture ==